=== PATIENT | male | born 1940 | race Caucasian/White ===

== ENCOUNTER → 2016-11-27 | Outpatient (REF) | payer MEDICARE ==
[2016-11-28 11:37] LABS: MEAN CORPUSCULAR HEMOGLOBIN 30.5 pg (27.0-33.0); MEAN CORPUSCULAR HGB CONC 33.3 g/dl (32.0-36.5); MEAN CORPUSCULAR VOLUME 91.5 fl (80.0-96.0); PLATELET COUNT, AUTOMATED 241 k/mm3 (150-450); RED CELL DISTRIBUTION WIDTH 12.7 % (11.5-14.5); WHITE BLOOD COUNT 8.8 K/mm3 (4.0-10.0)
[2016-11-28 12:38] LABS: ANION GAP 6 MEQ/L (8-16); BLOOD UREA NITROGEN 16 MG/DL (7-18); CARBON DIOXIDE LEVEL 29 MEQ/L (21-32); CHLORIDE LEVEL 104 MEQ/L (98-107); CREATININE FOR GFR 0.96 MG/DL (0.70-1.30); GLOMERULAR FILTRATION RATE > 60.0 (>42); GLUCOSE, FASTING 93 MG/DL (83-110); SODIUM LEVEL 139 MEQ/L (136-145)
[2016-11-28 12:48] LABS: POTASSIUM SERUM 5.8 MEQ/L (3.5-5.1)
[2016-11-28 13:37] LABS: BASOPHILS 2 % (0-4)
[2016-11-28 13:38] LABS: ANISOCYTOSIS 1+
== END ==
LOC: M SFHCCLAY 15:01
PROVIDERS: ATTEND Family Medicine
DX: Z86.2 Personal history of diseases of the blood and blood-forming organs and certain disorders involving the immune mechanism (principal); R73.01 Impaired fasting glucose; I10 Essential (primary) hypertension
CPT/HCPCS: 80048; 83036; 83540; 85025; G0463

== ENCOUNTER → 2017-05-30 | Outpatient (REF) | payer MEDICARE ==
[2017-05-31 12:10] LABS: ALBUMIN 3.8 GM/DL (3.2-5.2); ALBUMIN/GLOBULIN RATIO 1.12 (1.00-1.93); ALKALINE PHOSPHATASE 81 U/L (45-117); ALT/SGPT 29 U/L (12-78); ANION GAP 6 MEQ/L (8-16); AST/SGOT 19 U/L (15-37); BILIRUBIN,TOTAL 0.4 MG/DL (0.2-1.0); BLOOD UREA NITROGEN 12 MG/DL (7-18); CALCIUM LEVEL 8.9 MG/DL (8.8-10.2); CARBON DIOXIDE LEVEL 30 MEQ/L (21-32); CHLORIDE LEVEL 103 MEQ/L (98-107); CHOLESTEROL LEVEL 206 MG/DL (<200); CREATININE FOR GFR 0.95 MG/DL (0.70-1.30); GLOMERULAR FILTRATION RATE > 60.0 (>42); GLUCOSE, FASTING 116 MG/DL (83-110); POTASSIUM SERUM 4.2 MEQ/L (3.5-5.1); SODIUM LEVEL 139 MEQ/L (136-145); TOTAL PROTEIN 7.2 GM/DL (6.4-8.2); TRIGLYCERIDES LEVEL 120 MG/DL (<150)
== END ==
LOC: M SFHCCLAY 15:13
PROVIDERS: ATTEND Family Medicine
DX: I10 Essential (primary) hypertension (principal); E78.5 Hyperlipidemia, unspecified; R73.01 Impaired fasting glucose; E04.2 Nontoxic multinodular goiter
CPT/HCPCS: 80053; 80061; 83036; 84443; 90662; G0008; G0463

== ENCOUNTER → 2018-06-12 | Outpatient (REF) | payer MEDICARE ==
[2018-06-12 17:48] LABS: BASO # 0.1 10^3/uL (0.0-0.2); BASO % 0.7 % (0.0-1.0); EOS # 0.2 10^3/uL (0.0-0.50); EOS % 1.9 % (0.0-3.0); HEMATOCRIT 45.4 % (42.0-52.0); HEMOGLOBIN 15.1 g/dl (13.5-17.5); IMMATURE GRANULOCYTE % 0.2 % (0-3.0); LYMPH % 22.7 % (24.0-44.0); MEAN CORPUSCULAR HEMOGLOBIN 30.8 pg (27.0-33.0); MEAN CORPUSCULAR HGB CONC 33.3 g/dl (32.0-36.5); MEAN CORPUSCULAR VOLUME 92.5 fl (80.0-96.0); MONO # 0.5 10^3/uL (0.0-0.8); MONO % 6.1 % (0.0-5.0); NEUTROPHILS # 5.9 10^3/uL (1.8-7.7); NEUTROPHILS % 68.4 % (36.0-66.0); PLATELET COUNT, AUTOMATED 268 10^3/uL (150-450); RED BLOOD COUNT 4.91 10^6/uL (4.30-6.10); RED CELL DISTRIBUTION WIDTH 13.1 % (11.5-14.5); WHITE BLOOD COUNT 8.6 10^3/uL (4.0-10.0)
[2018-06-12 18:04] LABS: ALBUMIN 4.2 GM/DL (3.2-5.2); ALKALINE PHOSPHATASE 79 U/L (45-117); ALT/SGPT 29 U/L (12-78); ANION GAP 7 MEQ/L (8-16); AST/SGOT 18 U/L (7-37); BILIRUBIN,TOTAL 0.5 MG/DL (0.2-1.0); BLOOD UREA NITROGEN 17 MG/DL (7-18); CALCIUM LEVEL 9.2 MG/DL (8.8-10.2); CARBON DIOXIDE LEVEL 30 MEQ/L (21-32); CHLORIDE LEVEL 105 MEQ/L (98-107); CHOLESTEROL LEVEL 226 MG/DL (<200); CHOLESTEROL RISK RATIO 5.022 (<5); CREATININE FOR GFR 1.02 MG/DL (0.70-1.30); GLOMERULAR FILTRATION RATE > 60.0 (>42); GLUCOSE, FASTING 116 MG/DL (70-100); HDL CHOLESTEROL 45 MG/DL (>40); IRON (FE) 109 UG/DL (65-175); LDL CHOLESTEROL 149 MG/DL (<100); NON-HDL-C 181 MG/DL; POTASSIUM SERUM 4.9 MEQ/L (3.5-5.1); SODIUM LEVEL 142 MEQ/L (136-145); THYROID STIMULATING HORMONE 0.529 uIU/ML (0.358-3.740); TOTAL PROTEIN 7.2 GM/DL (6.4-8.2); TRIGLYCERIDES LEVEL 162 MG/DL (<150)
[2018-06-12 19:17] LABS: ESTIMATED AVERAGE GLUCOSE 137 MG/DL (60-110); HEMOGLOBIN A1c 6.4 %
== END ==
LOC: M SFHCCLAY 13:24
DX: E78.5 Hyperlipidemia, unspecified (principal); Z86.2 Personal history of diseases of the blood and blood-forming organs and certain disorders involving the immune mechanism; R73.01 Impaired fasting glucose; E04.2 Nontoxic multinodular goiter; Z23 Encounter for immunization
CPT/HCPCS: 83540

== ENCOUNTER → 2019-05-11 | Outpatient (REF) | payer MEDICARE ==
[2019-05-12 11:28] LABS: BASO # 0.1 10^3/uL (0.0-0.2); EOS # 0.2 10^3/uL (0.0-0.5); EOS % 2.2 % (0.0-3.0); LYMPH # 1.8 10^3/uL (1.5-5.0); LYMPH % 19.1 % (24.0-44.0); MEAN CORPUSCULAR HEMOGLOBIN 30.2 pg (27.0-33.0); MEAN CORPUSCULAR HGB CONC 33.3 g/dl (32.0-36.5); MEAN CORPUSCULAR VOLUME 90.7 fl (80.0-96.0); MONO # 0.7 10^3/uL (0.0-0.8); NEUTROPHILS # 6.7 10^3/uL (1.5-8.5); NEUTROPHILS % 70.4 % (36.0-66.0); PLATELET COUNT, AUTOMATED 238 10^3/uL (150-450); RED BLOOD COUNT 4.63 10^6/uL (4.30-6.10); WHITE BLOOD COUNT 9.5 10^3/uL (4.0-10.0)
[2019-05-12 11:38] LABS: ALBUMIN 3.8 GM/DL (3.2-5.2); ALT/SGPT 24 U/L (12-78); BILIRUBIN,TOTAL 0.4 MG/DL (0.2-1.0); BLOOD UREA NITROGEN 18 MG/DL (7-18); CALCIUM LEVEL 8.9 MG/DL (8.8-10.2); CARBON DIOXIDE LEVEL 28 MEQ/L (21-32); CHLORIDE LEVEL 104 MEQ/L (98-107); CHOLESTEROL LEVEL 210 MG/DL (<200); CHOLESTEROL RISK RATIO 4.883 (<5); CREATININE FOR GFR 1.03 MG/DL (0.70-1.30); GLOMERULAR FILTRATION RATE > 60.0 (>42); GLUCOSE, FASTING 102 MG/DL (70-100); HDL CHOLESTEROL 43 MG/DL (>40); IRON (FE) 80 UG/DL (65-175); LDL CHOLESTEROL 138 MG/DL (<100); NON-HDL-C 167 MG/DL; POTASSIUM SERUM 4.3 MEQ/L (3.5-5.1); SODIUM LEVEL 142 MEQ/L (136-145); THYROID STIMULATING HORMONE 0.472 uIU/ML (0.358-3.740); THYROXINE (T4) 11.9 UG/DL (4.5-12.0); TOTAL PROTEIN 6.5 GM/DL (6.4-8.2); TRIGLYCERIDES LEVEL 143 MG/DL (<150)
[2019-05-12 11:46] LABS: HEMOGLOBIN A1c 6.4 %
== END ==
LOC: M SFHCCLAY 14:27
PROVIDERS: ATTEND Family Medicine
DX: Z86.2 Personal history of diseases of the blood and blood-forming organs and certain disorders involving the immune mechanism (principal); I10 Essential (primary) hypertension; R73.01 Impaired fasting glucose; E78.5 Hyperlipidemia, unspecified; E04.2 Nontoxic multinodular goiter

== ENCOUNTER → 2020-05-10 | Outpatient (REF) | payer MEDICARE ==
[2020-05-10 13:18] LABS: HEMATOCRIT 45.4 % (42.0-52.0); HEMOGLOBIN 15.2 g/dl (13.5-17.5); MEAN CORPUSCULAR HEMOGLOBIN 30.8 pg (27.0-33.0); MEAN CORPUSCULAR HGB CONC 33.5 g/dl (32.0-36.5); MEAN CORPUSCULAR VOLUME 92.1 fl (80.0-96.0); PLATELET COUNT, AUTOMATED 243 10^3/uL (150-450); RED BLOOD COUNT 4.93 10^6/uL (4.30-6.10); WHITE BLOOD COUNT 10.9 10^3/uL (4.0-10.0)
[2020-05-10 13:49] LABS: HEMOGLOBIN A1c 6.5 %
[2020-05-10 13:53] LABS: ALBUMIN 3.7 GM/DL (3.2-5.2); ALT/SGPT 29 U/L (12-78); BILIRUBIN,TOTAL 0.5 MG/DL (0.2-1.0); BLOOD UREA NITROGEN 13 MG/DL (7-18); CALCIUM LEVEL 8.7 MG/DL (8.8-10.2); CARBON DIOXIDE LEVEL 29 MEQ/L (21-32); CHLORIDE LEVEL 107 MEQ/L (98-107); CHOLESTEROL LEVEL 201 MG/DL (<200); CHOLESTEROL RISK RATIO 4.369 (<5); CREATININE FOR GFR 0.84 MG/DL (0.70-1.30); FERRITIN 328 NG/ML (26-388); GLOMERULAR FILTRATION RATE > 60.0 (>42); GLUCOSE, FASTING 96 MG/DL (70-100); HDL CHOLESTEROL 46 MG/DL (>40); IRON (FE) 96 UG/DL (65-175); LDL CHOLESTEROL 136 MG/DL (<100); NON-HDL-C 155 MG/DL; PERCENT SATURATION 34.7 % (19.7-50.0); POTASSIUM SERUM 4.5 MEQ/L (3.5-5.1); SODIUM LEVEL 138 MEQ/L (136-145); THYROID STIMULATING HORMONE 0.566 uIU/ML (0.358-3.740); TOTAL IRON BINDING CAPACITY 277 UG/DL (250-450); TRIGLYCERIDES LEVEL 97 MG/DL (<150); VITAMIN B12 LEVEL 375 PG/ML (247-911)
[2020-05-10 13:55] LABS: FOLATE 11.7 NG/ML (>5.4)
== END ==
LOC: M LABDRAWC 11:48
PROVIDERS: ATTEND Family Medicine
DX: I10 Essential (primary) hypertension (principal); E78.5 Hyperlipidemia, unspecified; E04.2 Nontoxic multinodular goiter; R73.01 Impaired fasting glucose; Z86.2 Personal history of diseases of the blood and blood-forming organs and certain disorders involving the immune mechanism
CPT/HCPCS: 36415; 80053; 80061; 82607; 82728; 82746; 83036; 83550; 84443; 85027; G0463

== ENCOUNTER → 2020-06-16 | Outpatient (REF) | payer MEDICARE | LOC: M LAB REF 16:54 | PROVIDERS: ATTEND Physician Assistant | DX: C44.622 Squamous cell carcinoma of skin of right upper limb, including shoulder (principal); L82.1 Other seborrheic keratosis | CPT/HCPCS: 11102; 11103; 17000; 88305; G0463 ==

== ENCOUNTER 2020-08-17 17:32 | Inpatient (IN) | payer MEDICARE ==
[~2020-08-17] VITALS: Ht 172.7 cm; Wt 87.6 kg
[2020-08-17 20:50] VITALS: BP 140/73
[2020-08-17] MEDS: NORTRIPTYLINE 25 MG CAP PO SCH (21:00)
[2020-08-17] MEDS ORDERED: MAALOX 30 ML SUSP *UDC PO PRN (21:30)
[2020-08-17] MEDS ORDERED: MOM 30ML SUSPENSION UDC PO PRN (21:30)
[2020-08-17] MEDS ORDERED: LEXA5TAB13 PO (21:45)
[2020-08-17] MEDS ORDERED: ATEN25TA PO (21:45)
[2020-08-17] MEDS ORDERED: NEXI20CA PO (21:45)
[2020-08-17] MEDS ORDERED: FERR1TAB8 PO (21:45)
[2020-08-17] MEDS ORDERED: NORT25CA2 PO (21:45)
[2020-08-17] MEDS ORDERED: ELID1CRE11 TOP (21:45)
[2020-08-17] MEDS ORDERED: NITR4TASL SL (21:45)
[2020-08-17] MEDS ORDERED: SIMV40TA20 PO (21:45)
[2020-08-17] MEDS ORDERED: ACET-897 PO (21:45)
[2020-08-17] MEDS ORDERED: GABA600T4 PO (21:45)
[2020-08-17] MEDS ORDERED: AMLO1TAB25 PO (21:45)
[2020-08-17] MEDS ORDERED: ENSULIQ8 PO (21:45)
--- NOTE | 2020-08-17 21:58 | HPEPDOC ---
[facility] Medical History & Physical Date of Admission Aug 17, 2020 Date of Service: Aug 17, 2020 Attending Physician: TALIA HARRISON MD History and Physical TIME OF SERVICE: 11:16 PM CHIEF COMPLAINT: Dyspnea HISTORY OF PRESENT ILLNESS: This 79-year-old gentleman initially presented to [facility] 2 days ago with complaints of shortness of breath, fever, chills, muscle aches, runny nose and congestion; that visit, he was diagnosed with Covid 19 was not hypoxic, therefore, was sent home to [facility] point team. He returned to the ER with complaints of persistent shortness of breath that was worse with walking and fever high as 100.7. Because of high respiratory rate (24) and fever he was diagnosed with sepsis. His WBC count was 9.5, hemoglobin is 14.4, platelets were 161, lactic acid was 1.2, ferritin was 738. CT of the chest was negative for PE but confirmed the presence of ground glass opacities consistent with a diagnosis of Covid. His UA was positive for leukocyte esterase, WBCs, nitrites, and squamous cells;it was felt that he might have a UTI, therefore, he was started on Rocephin. Transfer to [facility] was requested for higher level of care; prior to transfer. Dr. Arellano was consulted; she didn't recommend remdisivir. At the time of my examination, the patient corroborated the history but added that he had developed nausea along with multiple episodes of vomiting. He denied having abdominal pain, back pain or pain with urination. REVIEW OF SYSTEMS: 12 point review of systems negative except as listed in HPI PAST MEDICAL/ SURGICAL HISTORY: Hypertension Hyperlipidemia HX of Stage IIIB Melanoma Insomnia/intrinsic sleep disorder/periodic limb movement disorder Bladder cancer GERD Anxiety Bilateral cataract surgery SOCIAL HISTORY: Former smoker He doesn't drink alcohol or use drugs FAMILY HISTORY: Mother had CKD ALLERGIES: Please see below. HOME MEDICATIONS: Please see below. PHYSICAL EXAMINATION: Vital Signs Date Time Temp Pulse Resp B/P (MAP) Pulse Ox O2 Delivery O2 Flow Rate FiO2 08/17/20 20:50 98.9 91 20 140/73 (95) 97 08/17/20 22:00 Room Air GEN: well-nourished / well developed/ NAD HEENT: lips acyanotic /mucus membranes moist and pink / sclera anicteric/ abdominojugular reflux CVS: RRR/NMRG/ no JVP / radial and dorsalis pedis pulses intact / no lower extremity edema LUNGS: able to speak full sentences without stopping to take a breath / coughing / lungs are clear to auscultation bilaterally on room air ABDOMEN: Contour (obese) MSK/EXTREMITIES: NCAT NEURO: CN 2-12 are grossly intact / speech is not dysarthric PSYCH: alert and oriented to person place and time/ able to understand and follow all commands LABORATORY DATA: 08/17/20 22:15 IMAGING: see HPI MICROBIOLOGY: COVID 19 + ASSESSMENT: Mr. Mcneil is a 79-year-old with a history of hypertension, remote history of melanoma, bladder cancer, anxiety, & GERD who was diagnosed with Covid 19 at [facility] a few days ago but subsequently developed SIRS criteria; he was transferred to [facility] for higher level of care. PLAN: 1. Sepsis 2/2 COVID 19 Pneumonia SIRS criteria: Temp 101.8 + HR > 90 Lactic acid < 2 CT chest showed bilateral ground glass opacities. The main symptoms, the patient has consistent with Covid include dyspnea, cough, fever, n/v His WBC, Plts,LFTs,CPK, LDH and troponins are wnl, but the Ferritin & CRP are elevated. Plan: admit to PCU / telemetry / contact & air borne precautions /continuous pulse ox/ supplemental O2 to target O2 sats between 92-95% / follow-up blood cultures/ in 12 H f/u repeat plts (if low indicates bad prognosis), CRP (if high indicates bad prognosis), INR, BMP, fibrinogen, INR, D-dimer (if greater than 5000 will start treatment dose lovenox), PT, PTT (if patient has DIC indicates bad prognosis), ferritin, LDH, procalcitonin (if elevated will need to order sputum cx, strep pneumo, legionella to r/o bacterial PNA to help rule out bacterial PNA), troponins ( if elevated will need to order Echo to r/o cardiomyopathy) / VBG to assess for hypoxia / if he becomes hypoxemic the day time team may consult Pulmonology to discuss if the patient is a candidate for Remdesivir / will hold off IV dexamethasone or solumedrol because the patient is not hypoxemic / Acetaminophen PRN for fever 2. Asymptomatic UTI. Plan: will hold off antibiotics 3. Chronic Hypertension Plan: Amlodipine, atenolol 4. Hyperlipidemia. Plan: Simvastatin 5. HX of Stage IIIB Melanoma & Bladder cancer. Plan: Follow-up with hematology oncology team as scheduled Insomnia/intrinsic sleep disorder/periodic limb movement disorder 6. GERD Plan: Esomeprazole 7. Anxiety Plan: Citalopram DVT PROPHYLAXIS: Lovenox DISPOSITION: home after more than 2 midnight's stay Home Medications Scheduled Amlodipine Besylate (Amlodipine Besylate) 10 Mg Tablet, 10 MG PO DAILY Atenolol (Atenolol) 25 Mg Tablet, 25 MG PO DAILY Escitalopram Oxalate (Lexapro) 5 Mg Tablet, 5 MG PO DAILY Esomeprazole Magnesium (Nexium) 20 Mg Capsule.dr, 20 MG PO DAILY Ferrous Sulfate (Ferrous Sulfate) 325 Mg Tablet, 325 MG PO DAILY Gabapentin (Gabapentin) 600 Mg Tablet, 600 MG PO BID Lactose-Reduced Food (Ensure Liquid) 237 Ml Liquid, 237 ML PO DAILY CONSUMES BETWEEN LUNCH AND DINNER Nortriptyline HCl (Nortriptyline HCl) 25 Mg Capsule, 25 MG PO QHS Simvastatin (Simvastatin) 40 Mg Tablet, 40 MG PO QHS Scheduled PRN Acetaminophen (Tylenol Extra Strength) 500 Mg Tablet, 1,000 MG PO Q6H PRN for PAIN / FEVER Nitroglycerin (Nitrostat) 0.4 Mg Tab.subl, 0.4 MG SL NITRO PRN for CHEST PAIN Pimecrolimus (Elidel) 30 Gm Cream..g., 1 DOSE TOP DAILY PRN for ECZEMA APPLY TO FACE NEEDED Allergies Coded Allergies: No Known Allergies (Unverified , 08/17/20) A-FIB/CHADSVASC A-FIB History Current/History of A-Fib/PAF?: No Current PO Anticoag Therapy: TALIA Flynn MD Aug 17, 2020 21:58
[2020-08-17 22:00] VITALS: O2SAT 95
[2020-08-17 22:33] LABS: BASO % 0.2 % (0.0-1.0); HEMATOCRIT 41.4 % (42.0-52.0); HEMOGLOBIN 13.7 g/dl (13.5-17.5); LYMPH # 0.7 10^3/uL (1.5-5.0); LYMPH % 6.9 % (24.0-44.0); MEAN CORPUSCULAR HEMOGLOBIN 29.7 pg (27.0-33.0); MEAN CORPUSCULAR HGB CONC 33.1 g/dl (32.0-36.5); MEAN CORPUSCULAR VOLUME 89.6 fl (80.0-96.0); MONO # 0.6 10^3/uL (0.0-0.8); MONO % 6.4 % (0.0-5.0); NEUTROPHILS # 8.4 10^3/uL (1.5-8.5); NEUTROPHILS % 86.1 % (36.0-66.0); PLATELET COUNT, AUTOMATED 147 10^3/uL (150-450); RED BLOOD COUNT 4.62 10^6/uL (4.30-6.10); WHITE BLOOD COUNT 9.8 10^3/uL (4.0-10.0)
[2020-08-17 22:46] LABS: INR 0.97; PROTHROMBIN TIME 13.1 SECONDS (12.5-14.3)
[2020-08-17 22:52] LABS: PARTIAL THROMBOPLASTIN TIME 34.9 SECONDS (24.2-38.5)
[2020-08-17 22:55] LABS: D-DIMER QUANT 1087.76 ng/ml (<500)
[2020-08-17 22:57] LABS: ALBUMIN 3.5 GM/DL (3.2-5.2); ALT/SGPT 35 U/L (12-78); BILIRUBIN,DIRECT 0.2 MG/DL (0.0-0.2); BILIRUBIN,TOTAL 0.5 MG/DL (0.2-1.0); BLOOD UREA NITROGEN 12 MG/DL (7-18); C REACTIVE PROTEIN QUANTITATIV 9.86 MG/DL (0.00-0.30); CALCIUM LEVEL 8.5 MG/DL (8.8-10.2); CARBON DIOXIDE LEVEL 26 MEQ/L (21-32); CHLORIDE LEVEL 104 MEQ/L (98-107); CK-MB VALUE MASS 1.5 NG/ML (<3.6); CPK CREATINE PHOSPHOKINASE 159 U/L (39-308); CREATININE FOR GFR 0.96 MG/DL (0.70-1.30); FERRITIN 848 NG/ML (26-388); GLOMERULAR FILTRATION RATE > 60.0 (>42); GLUCOSE, FASTING 114 MG/DL (70-100); LDH LACTATE DEHYDROGENASE 199 U/L (87-241); MB/CK RELATIVE INDEX 0.94 (< OR =4); NT-PRO BNP 454 PG/ML (<450); POTASSIUM SERUM 3.5 MEQ/L (3.5-5.1); SODIUM LEVEL 135 MEQ/L (136-145); TOTAL PROTEIN 6.8 GM/DL (6.4-8.2); TRIGLYCERIDES LEVEL 53 MG/DL (<150); TROPONIN I < 0.02 NG/ML (< 0.10)
[2020-08-17] MEDS ORDERED: NITROGLYCERIN 0.4 MG SUBL TABLET SL PRN (23:00)
[2020-08-17] MEDS: SIMVASTATIN 40 MG TAB PO SCH (23:15)
[2020-08-17] MEDS: ONDANSETRON 4MG/2ML VIAL IV PRN (23:15)
[2020-08-17] MEDS: GABAPENTIN 300 MG CAP PO SCH (23:15)
[2020-08-17 23:17] LABS: HEPATITIS B SURFACE ANTIGEN NEGATIVE (NEGATIVE)
[2020-08-17 23:45] LABS: HIV 1&2 SCREEN CENTAUR NEGATIVE (NEGATIVE)
[2020-08-18] VITALS (8 sets, daily range): BP systolic 134–167; BP diastolic 59–79; O2SAT 93–94
[2020-08-18] MEDS: ACETAMINOPHEN TAB 650MG DOSE (2X325MG) PO PRN ×2 (00:42→10:59)
[2020-08-18] MEDS ORDERED: ENOXAPARIN 40MG/0.4ML SYRINGE (J1650 PER 10MG) SC SCH (06:00)
[2020-08-18 06:30] LABS: BASO % 0.1 % (0.0-1.0); HEMATOCRIT 41.9 % (42.0-52.0); HEMOGLOBIN 14.2 g/dl (13.5-17.5); LYMPH # 0.7 10^3/uL (1.5-5.0); LYMPH % 5.9 % (24.0-44.0); MEAN CORPUSCULAR HGB CONC 33.9 g/dl (32.0-36.5); MEAN CORPUSCULAR VOLUME 91.5 fl (80.0-96.0); MONO # 0.7 10^3/uL (0.0-0.8); NEUTROPHILS # 10.6 10^3/uL (1.5-8.5); NEUTROPHILS % 87.6 % (36.0-66.0); PLATELET COUNT, AUTOMATED 151 10^3/uL (150-450); RED BLOOD COUNT 4.58 10^6/uL (4.30-6.10); WHITE BLOOD COUNT 12.1 10^3/uL (4.0-10.0)
[2020-08-18 06:34] LABS: APPEARANCE, URINE HAZY (CLEAR); BACTERIA, URINE AUTO NEGATIVE (NEGATIVE); BILIRUBIN, URINE AUTO NEGATIVE (NEGATIVE); BLOOD, URINE BLOOD 2+ (NEGATIVE); COLOR, URINE YELLOW (YELLOW); GLUCOSE, URINE (UA) AUTO 1+ mg/dL (NEGATIVE); KETONE, URINE AUTO 1+ mg/dL (NEGATIVE); LEUKOCYTE ESTERASE, URINE AUTO 2+ (NEGATIVE); NITRITE, URINE AUTO NEGATIVE (NEGATIVE); PROTEIN, URINE AUTO 2+ mg/dL (NEGATIVE); RBC, URINE AUTO 6 /HPF (0-3); SPECIFIC GRAVITY URINE AUTO 1.019 (1.002-1.035); SQUAMOUS EPITHELIAL CELL UR AU 0 /HPF (0-6); UROBILINOGEN, URINE AUTO 0.2 mg/dL (0.0-2.0); WBC, URINE AUTO 93 /HPF (0-3)
[2020-08-18 06:41] LABS: INR 1.08; PROTHROMBIN TIME 14.2 SECONDS (12.5-14.3)
[2020-08-18 06:42] LABS: PARTIAL THROMBOPLASTIN TIME 37.7 SECONDS (24.2-38.5)
[2020-08-18 06:44] LABS: D-DIMER QUANT 1144.71 ng/ml (<500)
[2020-08-18 07:05] LABS: C REACTIVE PROTEIN QUANTITATIV 14.2 MG/DL (0.00-0.30); TROPONIN I 0.02 NG/ML (< 0.10)
--- NOTE | 2020-08-18 07:21 | ECGEPIP ---
[facility] Test Date: 2020-08-17 Pat Name: SYLVIE CROWDER Department: Room: E1743-70 Gender: Male Level[place]: : 1940 Requested By: TALIA HARRISON Order Number: [id number] Reading MD: Sascha Arthur Measurements Intervals [place] Rate: 97 P: 52 KS: 191 QRS: 0 QRSD: 92 T: 80 QT: 343 QTc: 436 Interpretive Statements Normal sinus rhythm with isolated PAC Prominent right precordial R waves with minuscule inferior Q waves; consider RIGHT VENTRICULAR HYPERTROPHY versus prior inferoposterior MS. Nonspecific ST/T wave abnormalities. No prior tracing for comparison. Clincal correlation advised Electronically Signed on 08-18-2020 7:21:09 EST by Sascha Arthur
[2020-08-18] MEDS: GABAPENTIN 300 MG CAP PO SCH ×2 (08:50→21:33)
[2020-08-18] MEDS: FERROUS SULFATE 325MG TAB PO SCH (08:50)
[2020-08-18] MEDS: PANTOPRAZOLE 20 MG TAB PO SCH (08:50)
[2020-08-18] MEDS: amLODIPine 10 MG TAB PO SCH (08:51)
[2020-08-18] MEDS: atenoloL 25 MG TAB PO SCH (08:51)
[2020-08-18] MEDS: ESCITALOPRAM OXALATE 5MG TABLET (LEXAPRO) PO SCH (08:51)
[2020-08-18] MEDS: ONDANSETRON 4MG/2ML VIAL IV PRN (10:59)
--- NOTE | 2020-08-18 16:16 | IPNPDOC ---
Text Note Date of Service The patient was seen on 08/18/20. NOTE Subjective: Patient was seen and examined this morning at bedside. Patient was sitting up in bed says he feels weak overall but the same as when he came in. He doesn't feel very short of breath at rest however he does get a little short of breath on exertion currently he just has some muscle aches and nasal congestion and intermittent fever. He's been breathing on room air not requiring supplemental oxygen. Nurse reports no overnight events. Urinalysis suggests a UTI but patient denies any dysuria or urinary frequency. Objective: Constitutional: Awake and alert, in no apparent distress ENT: Sclera are clear. Mucosa is moist. Respiratory: Lungs CTA bilaterally. No respiratory distress. No use of accessory muscles. Cardiovascular: RRR S1 and S2 are normal, no murmur Gastrointestinal: Abdomen is soft, non distended, non tender, BS present. Musculoskeletal: No edema. No joint deformities. RUE 5/5, LUE 5/5, BLE 5/5 Neurologic: No focal neurological deficit. Mental Status: A&O x3, normal affect Skin: Warm, dry Assessment/plan: 79-year-old male history of hypertension recently diagnosed with Covid 2 days ago and [facility] transferred due to increased shortness of breath with exertion as well as meeting SIRS criteria. Transferred to [facility] for higher level of care. Patient was admitted for management of Covid infection. # Sepsis secondary to Covid 19 pneumonia: Elevated calcitonin. Abx ceftriaxone and azithromycin. Fu BCx. Elevated inflammatory markers. Trend markers. No supplemental oxygen needed at this time. Started on IV steroids as inflammatory markers did uptrend, may not continue for long. Overnight case was discussed with Dr. Lawson who suggested holding off on Ramdasivir. PT/OT. # UTI; seen on urinalysis although patient is asymptomatic. Likely covered by ceftriaxone which she is on for pneumonia. # Hypertension: Continue home meds. Monitor and titrate # HX of Stage IIIB Melanoma & Bladder cancer: Follow-up with hematology oncology team as scheduled # Anxiety: citalopram # HLD: simvastatin # GERD: PPI # DVT prophylaxis: Lovenox Covid prophylactic dose [facility] VS,Fishbone, I+O VS, Fishbone, I+O Laboratory Tests 08/17/20 22:15 08/18/20 05:58 Vital Signs Date Time Temp Pulse Resp B/P (MAP) Pulse Ox O2 Delivery O2 Flow Rate FiO2 08/18/20 12:00 98.4 69 19 134/59 (84) 93 Room Air I&O- Last 24 Hours up to 6 AM 08/18/20 06:00 Intake Total 600 ml Balance 600 ml ALLY LOREDO MD Aug 18, 2020 16:16
[2020-08-18] MEDS: AZITHROMYCIN INJ 500 MG, VIAL MATE ADAPTER 1 EACH in D5W 250 ML IV SCH (16:35)
[2020-08-18] MEDS: methylPREDNISolone 40MG 1ML VIAL IV SCH (16:35)
--- NOTE | 2020-08-18 16:48 | REP ---
INDICATION: elevated procalcitonin, COVID. COMPARISON: No comparison chest x-ray.. TECHNIQUE: Portable upright AP radiograph. FINDINGS: Monitoring electrodes are seen. There are multiple surgical clips in the right axillary soft tissues. Heart size is borderline. Pulmonary vasculature is somewhat cephalized. There is pleural thickening and slight blunting of the right lateral pleural angle. There are patchy bilateral infiltrates left base, left perihilar region, and right mid lung field. The aorta is somewhat tortuous. There are degenerative changes in the thoracic spine. IMPRESSION: Patchy bilateral interstitial infiltrates consistent with pneumonia. Some vascular congestion. Borderline heart size. <Electronically signed by Lewis Sims > 08/18/20 [id number]
[2020-08-18] MEDS: cefTRIAXone SOD 1 GM in D5W MINI-BAG PLUS 50 ML IV SCH (17:36)
[2020-08-18] MEDS: ENOXAPARIN 40MG/0.4ML SYRINGE (J1650 PER 10MG) SC SCH (17:36)
[2020-08-18] MEDS: SIMVASTATIN 40 MG TAB PO SCH (21:32)
[2020-08-18] MEDS: NORTRIPTYLINE 25 MG CAP PO SCH (21:33)
[2020-08-19] VITALS: O2SAT 94
[2020-08-19] MEDS: methylPREDNISolone 40MG 1ML VIAL IV SCH ×3 (01:41→17:39)
[2020-08-19 04:00] VITALS: BP 139/70
[2020-08-19 06:04] VITALS: O2SAT 92
[2020-08-19] MEDS: ENOXAPARIN 40MG/0.4ML SYRINGE (J1650 PER 10MG) SC SCH ×2 (06:06→18:58)
[2020-08-19 08:31] LABS: BASO % 0.1 % (0.0-1.0); HEMOGLOBIN 14.1 g/dl (13.5-17.5); LYMPH # 0.5 10^3/uL (1.5-5.0); LYMPH % 3.2 % (24.0-44.0); MEAN CORPUSCULAR HEMOGLOBIN 30.2 pg (27.0-33.0); MEAN CORPUSCULAR HGB CONC 33.6 g/dl (32.0-36.5); MEAN CORPUSCULAR VOLUME 89.9 fl (80.0-96.0); MONO # 0.4 10^3/uL (0.0-0.8); MONO % 2.4 % (0.0-5.0); NEUTROPHILS # 13.6 10^3/uL (1.5-8.5); NEUTROPHILS % 93.7 % (36.0-66.0); PLATELET COUNT, AUTOMATED 155 10^3/uL (150-450); RED BLOOD COUNT 4.67 10^6/uL (4.30-6.10); WHITE BLOOD COUNT 14.5 10^3/uL (4.0-10.0)
[2020-08-19 08:46] LABS: INR 1.01; PROTHROMBIN TIME 13.5 SECONDS (12.5-14.3)
[2020-08-19 08:47] LABS: PARTIAL THROMBOPLASTIN TIME 40.3 SECONDS (24.2-38.5)
[2020-08-19 08:49] LABS: D-DIMER QUANT 848.51 ng/ml (<500)
[2020-08-19 09:00] LABS: ALBUMIN 3.1 GM/DL (3.2-5.2); ALT/SGPT 34 U/L (12-78); BILIRUBIN,DIRECT 0.2 MG/DL (0.0-0.2); BILIRUBIN,TOTAL 0.5 MG/DL (0.2-1.0); BLOOD UREA NITROGEN 18 MG/DL (7-18); CALCIUM LEVEL 8.1 MG/DL (8.8-10.2); CARBON DIOXIDE LEVEL 27 MEQ/L (21-32); CHLORIDE LEVEL 100 MEQ/L (98-107); CREATININE FOR GFR 0.92 MG/DL (0.70-1.30); FERRITIN 1292 NG/ML (26-388); GLOMERULAR FILTRATION RATE > 60.0 (>42); GLUCOSE, FASTING 185 MG/DL (70-100); MAGNESIUM LEVEL 2.4 MG/DL (1.8-2.4); POTASSIUM SERUM 3.8 MEQ/L (3.5-5.1); SODIUM LEVEL 135 MEQ/L (136-145); TOTAL PROTEIN 6.4 GM/DL (6.4-8.2)
[2020-08-19] MEDS: FERROUS SULFATE 325MG TAB PO SCH (09:06)
[2020-08-19] MEDS: PANTOPRAZOLE 20 MG TAB PO SCH (09:06)
[2020-08-19] MEDS: GABAPENTIN 300 MG CAP PO SCH ×2 (09:06→20:05)
[2020-08-19] MEDS: ESCITALOPRAM OXALATE 5MG TABLET (LEXAPRO) PO SCH (09:06)
[2020-08-19] MEDS: atenoloL 25 MG TAB PO SCH (09:07)
[2020-08-19] MEDS: amLODIPine 10 MG TAB PO SCH (09:08)
[2020-08-19 12:00] VITALS: BP 121/66
--- NOTE | 2020-08-19 14:51 | IPNPDOC ---
Text Note Date of Service The patient was seen on 08/19/20. NOTE Subjective: Patient seen and examined this morning at bedside. Tells me his feeling much better now. He estimates improvement to be about 60% compared to when he came in. Says his shortness of breath improved significantly and he is no longer feels as short of breath. He ambulated today with physical therapy and did not require oxygen he always saturated over 93% at all times. Nurse reports to me no acute overnight events. Patient denies any chest pain fevers or chills. Objective: Constitutional: Awake and alert, in no apparent distress ENT: Sclera are clear. Mucosa is moist. Respiratory: Lungs CTA bilaterally. No respiratory distress. No use of accessory muscles. on room air. Cardiovascular: RRR S1 and S2 are normal, no murmur Gastrointestinal: Abdomen is soft, non distended, non tender, BS present. Musculoskeletal: No edema. No joint deformities. RUE 5/5, LUE 5/5, BLE 5/5 Neurologic: No focal neurological deficit. Mental Status: A&O x3, normal affect Skin: Warm, dry Assessment/plan: 79-year-old male history of hypertension recently diagnosed with Covid 2 days ago and [facility] transferred due to increased shortness of breath with exertion as well as meeting SIRS criteria. Transferred to [facility] for higher level of care. Patient was admitted for management of Covid infection. I anticipate patient will be discharged tomorrow # Sepsis secondary to Covid 19 pneumonia: Abx ceftriaxone and azithromycin will transitioned to levofloxacin for 5 more days at time of discharge. BCx negative to date. Elevated inflammatory markers. Trend markers show decreasing D-dimer. No supplemental oxygen needed at this time even on ambulation was physical therapy maintain saturation over 92%. IV steroids and then transitioned to 5 days of prednisone oral time of discharge. Discussed with Dr. Lawson overnight team who suggested holding off on Ramdasivir. PT/OT cleared patient for discharge. # UTI: seen on urinalysis although patient is asymptomatic. Likely covered by ceftriaxone which he is on for pneumonia. He will also be discharged on levoflo xacin for 5 days for the PNA. UCx hasn't been collected and likely unreliable now as patient already on ABx. # Hypertension: Continue home meds. Monitor and titrate # HX of Stage IIIB Melanoma & Bladder cancer: Follow-up with hematology oncology team as scheduled # Anxiety: citalopram # HLD: simvastatin # GERD: PPI # DVT prophylaxis: Lovenox Covid prophylactic dose [facility] Tisha CHRISTIANSEN, I+O Tisha CHRISTIANSEN I+O Laboratory Tests 08/19/20 07:38 Vital Signs Date Time Temp Pulse Resp B/P (MAP) Pulse Ox O2 Delivery O2 Flow Rate FiO2 08/19/20 12:00 98.6 54 16 121/66 (84) 97 Room Air I&O- Last 24 Hours up to 6 AM 08/19/20 06:00 Intake Total 1140 ml Output Total 1450 ml Balance -310 ml ALLY LOREDO MD Aug 19, 2020 14:51
[2020-08-19] MEDS: AZITHROMYCIN INJ 500 MG, VIAL MATE ADAPTER 1 EACH in D5W 250 ML IV SCH (17:39)
[2020-08-19] MEDS: cefTRIAXone SOD 1 GM in D5W MINI-BAG PLUS 50 ML IV SCH (18:58)
[2020-08-19 20:00] VITALS: BP 144/67
[2020-08-19] MEDS: NORTRIPTYLINE 25 MG CAP PO SCH (20:05)
[2020-08-19] MEDS: SIMVASTATIN 40 MG TAB PO SCH (20:06)
[2020-08-20] MEDS: methylPREDNISolone 40MG 1ML VIAL IV SCH ×2 (00:59→09:21)
[2020-08-20 04:00] VITALS: BP 125/69
[2020-08-20] MEDS: ENOXAPARIN 40MG/0.4ML SYRINGE (J1650 PER 10MG) SC SCH (05:40)
[2020-08-20 07:34] LABS: BASO % 0.1 % (0.0-1.0); HEMOGLOBIN 14.2 g/dl (13.5-17.5); LYMPH # 0.6 10^3/uL (1.5-5.0); LYMPH % 3.5 % (24.0-44.0); MEAN CORPUSCULAR HEMOGLOBIN 30.4 pg (27.0-33.0); MEAN CORPUSCULAR HGB CONC 33.8 g/dl (32.0-36.5); MEAN CORPUSCULAR VOLUME 89.9 fl (80.0-96.0); MONO # 0.6 10^3/uL (0.0-0.8); NEUTROPHILS # 14.6 10^3/uL (1.5-8.5); NEUTROPHILS % 91.8 % (36.0-66.0); PLATELET COUNT, AUTOMATED 203 10^3/uL (150-450); RED BLOOD COUNT 4.67 10^6/uL (4.30-6.10); WHITE BLOOD COUNT 15.9 10^3/uL (4.0-10.0)
[2020-08-20 07:46] LABS: INR 0.91; PROTHROMBIN TIME 12.4 SECONDS (12.5-14.3)
[2020-08-20 07:47] LABS: PARTIAL THROMBOPLASTIN TIME 34.2 SECONDS (24.2-38.5)
[2020-08-20 07:49] LABS: D-DIMER QUANT 713.56 ng/ml (<500)
[2020-08-20 08:05] LABS: ALT/SGPT 42 U/L (12-78); BILIRUBIN,DIRECT 0.2 MG/DL (0.0-0.2); BILIRUBIN,TOTAL 0.4 MG/DL (0.2-1.0); BLOOD UREA NITROGEN 23 MG/DL (7-18); C REACTIVE PROTEIN QUANTITATIV 6.16 MG/DL (0.00-0.30); CALCIUM LEVEL 8.2 MG/DL (8.8-10.2); CARBON DIOXIDE LEVEL 28 MEQ/L (21-32); CHLORIDE LEVEL 99 MEQ/L (98-107); CREATININE FOR GFR 0.94 MG/DL (0.70-1.30); FERRITIN 1320 NG/ML (26-388); GLOMERULAR FILTRATION RATE > 60.0 (>42); GLUCOSE, FASTING 174 MG/DL (70-100); MAGNESIUM LEVEL 2.4 MG/DL (1.8-2.4); POTASSIUM SERUM 3.6 MEQ/L (3.5-5.1); SODIUM LEVEL 134 MEQ/L (136-145); TOTAL PROTEIN 6.5 GM/DL (6.4-8.2)
[2020-08-20] MEDS: ESCITALOPRAM OXALATE 5MG TABLET (LEXAPRO) PO SCH (09:20)
[2020-08-20 09:21] VITALS: BP 125/69
[2020-08-20] MEDS: amLODIPine 10 MG TAB PO SCH (09:21)
[2020-08-20] MEDS: PANTOPRAZOLE 20 MG TAB PO SCH (09:21)
[2020-08-20] MEDS: GABAPENTIN 300 MG CAP PO SCH (09:21)
[2020-08-20] MEDS: FERROUS SULFATE 325MG TAB PO SCH (09:21)
[2020-08-20] MEDS: atenoloL 25 MG TAB PO SCH (09:21)
[2020-08-20] MEDS ORDERED: PRED50TA PO (10:52)
[2020-08-20] MEDS ORDERED: VENTAER INH (10:52)
[2020-08-20] MEDS ORDERED: ACET-897 PO (10:52)
[2020-08-20] MEDS ORDERED: LEVO750T13 PO (10:52)
--- NOTE | 2020-08-20 11:02 | DS.PDOC ---
Discharge Summary General Date of Admission Aug 17, 2020 at 20:35 Date of Discharge 08/20/2020 Discharge Summary PROCEDURES PERFORMED DURING STAY: [None]. ADMITTING DIAGNOSES: Covid 19 infection Urinary tract infection Sepsis DISCHARGE DIAGNOSES: Sepsis secondary to Covid 19 pneumonia Urinary tract infection COMPLICATIONS/CHIEF COMPLAINT: Uti,Sepsis, +Covid. HISTORY OF PRESENT ILLNESS: From H&P: This 79-year-old gentleman initially presented to [facility] 2 days ago with complaints of shortness of breath, fever, chills, muscle aches, runny nose and congestion; that visit, he was diagnosed with Covid 19 was not hypoxic, therefore, was sent home to [facility] point team. He returned to the ER with complaints of persistent shortness of breath that was worse with walking and fever high as 100.7. Because of high respiratory rate (24) and fever he was diagnosed with sepsis. His WBC count was 9.5, hemoglobin is 14.4, platelets were 161, lactic acid was 1.2, ferritin was 738. CT of the chest was negative for PE but confirmed the presence of ground glass opacities consistent with a diagnosis of Covid. His UA was positive for leukocyte esterase, WBCs, nitrites, and squamous cells;it was felt that he might have a UTI, therefore, he was started on Rocephin. Transfer to [facility] was requested for higher level of care; prior to transfer. Dr. Arellano was consulted; she didn't recommend remdisivir. At the time of my examination, the patient corroborated the history but added that he had developed nausea along with multiple episodes of vomiting. He denied having abdominal pain, back pain or pain with urination. HOSPITAL COURSE: 79-year-old male history of hypertension recently diagnosed with Covid 2 days ago and [facility] transferred due to increased shortness of breath with exertion as well as meeting SIRS criteria. Transferred to [facility] for higher level of care. Patient was admitted for management of Covid infection. In the time of discharge patient was feeling well tell me his shortness of breath has essentially resolved and he hasn't required any oxygen when walking around his room feeling well. Is eager to go home. Denies any sputum production fevers or chills. He estimates he feels 90% better compared to when he came to the hospital. Yesterday he told me use feeling 60% better. Patient was discharged to home with home health on 08/20/2020. Patient will be prescribed 5 more days of prednisone orally as well as 5 more days of levofloxacin. I asked the patient to follow-up with his primary care doctor ideally through telemedicine within the next 7 days. # Sepsis secondary to Covid 19 pneumonia: Abx IV ceftriaxone and azithromycin will transitioned to levofloxacin for 5 more days at time of discharge. BCx negative to date. Elevated inflammatory markers. Trend markers show decreasing D-dimer. No supplemental oxygen needed at this time even on ambulation was p hysical therapy maintain saturation over 92%. IV steroids and then transitioned to 5 days of prednisone oral time of discharge. Discussed with Dr. Arellano overnight team who suggested holding off on Ramdasivir. PT/OT cleared patient for discharge. # UTI: seen on urinalysis although patient is asymptomatic. Likely covered by ceftriaxone which he is on for pneumonia. He will also be discharged on levof loxacin for 5 days for the PNA. UCx hasn't been collected and likely unreliable now as patient already on ABx. In the time of discharge the patient denies any dysuria # Hypertension: Continue home meds. Monitor and titrate # HX of Stage IIIB Melanoma & Bladder cancer: Follow-up with hematology oncology team as scheduled DISCHARGE MEDICATIONS: Please see below. ALLERGIES: Please see below. PHYSICAL EXAMINATION ON DISCHARGE: VITAL SIGNS: Please see below. Constitutional: Awake and alert, in no apparent distress ENT: Sclera are clear. Mucosa is moist. Respiratory: Lungs CTA bilaterally. No respiratory distress. No use of accessory muscles. on room air. Cardiovascular: RRR S1 and S2 are normal, no murmur Gastrointestinal: Abdomen is soft, non distended, non tender, BS present. Musculoskeletal: No edema. No joint deformities. RUE 5/5, LUE 5/5, BLE 5/5 Neurologic: No focal neurological deficit. Mental Status: A&O x3, normal affect Skin: Warm, dry LABORATORY DATA: Please see below. IMAGING: CXR Patchy bilateral interstitial infiltrates consistent with pneumonia. Some vascular congestion. Borderline heart size. PROGNOSIS: fair ACTIVITY: [As tolerated]. DIET: regular DISPOSITION: Home with home health DISCHARGE INSTRUCTIONS: Please follow up with your primary care physician within 1 week from discharge. If you do not have one, please follow up with us to schedule an appointment. Please keep all of your follow up appointments. Please call central to book your appointments with hospital specialists. Please take all your medications as prescribed. Please call/come to Clinic or go to the Emergency Department if - Temp >101, intractable Nausea/Vomiting, Diarrhea, Mouth sores, Headaches, Altered mental status, Seizures, sudden onset of swelling, bleeding, shortness of breath or chest pain. ITEMS TO FOLLOWUP ON ON OUTPATIENT: Follow-up with your primary care doctor within 1 week of discharge Follow quarantine guidelines as discussed per CDC guidelines DISCHARGE CONDITION: [Stable]. TIME SPENT ON DISCHARGE: Greater than 35 minutes. Vital Signs/I&Os Vital Signs Date Time Temp Pulse Resp B/P (MAP) Pulse Ox O2 Delivery O2 Flow Rate FiO2 08/20/20 09:21 75 125/69 08/20/20 06:00 93 Nasal Cannula 1.0 08/20/20 04:00 98.6 20 I&O- Last 24 Hours up to 6 AM 08/20/20 06:00 Intake Total 1260 ml Output Total 2100 ml Balance -840 ml Laboratory Data Labs 24H Laboratory Tests 2 08/20/20 04:40: 08/20/20 06:48: Immature Granulocyte % (Auto) 0.6, Neutrophils (%) (Auto) 91.8H, Lymphocytes (%) (Auto) 3.5L, Monocytes (%) (Auto) 4.0, Eosinophils (%) (Auto) 0.0, Basophils (%) (Auto) 0.1, Neutrophils # (Auto) 14.6H, Lymphocytes # (Auto) 0.6L, Monocytes # (Auto) 0.6, Eosinophils # (Auto) 0.0, Basophils # (Auto) 0.0, Nucleated Red Blood Cells % (auto) 0.0, Prothrombin Time 12.4, Prothromb Time International Ratio 0.91, Activated Partial Thromboplast Time 34.2, Fibrinogen 586H, D-Dimer, Quantitative 713.56H, Anion Gap 7L, Glomerular Filtration Rate > 60.0, Calcium Level 8.2L, Magnesium Level 2.4, Ferritin 1320H, Total Bilirubin 0.4, Direct Bilirubin 0.2, Aspartate Amino Transf (AST/SGOT) 38H, Alanine Aminotransferase (ALT/SGPT) 42, Alkaline Phosphatase 68, C-Reactive Protein, Quantitative 6.16H, Total Protein 6.5, Albumin 3.0L, Albumin/Globulin Ratio 0.9 CBC/BMP Laboratory Tests 08/20/20 06:48 Microbiology Microbiology 08/20/20 Urine Culture, Received Pending 08/18/20 Blood Culture - Preliminary, Resulted No growth after 24 hours . All specim... 08/18/20 Blood Culture - Preliminary, Resulted No growth after 24 hours . All specim... 08/17/20 Blood Culture - Preliminary, Resulted No Growth after 48 hours. All Specime... Discharge Medications Scheduled Amlodipine Besylate (Amlodipine Besylate) 10 Mg Tablet, 10 MG PO DAILY, (Reported) Atenolol (Atenolol) 25 Mg Tablet, 25 MG PO DAILY, (Reported) Escitalopram Oxalate (Lexapro) 5 Mg Tablet, 5 MG PO DAILY, (Reported) Esomeprazole Magnesium (Nexium) 20 Mg Capsule.dr, 20 MG PO DAILY, (Reported) Ferrous Sulfate (Ferrous Sulfate) 325 Mg Tablet, 325 MG PO DAILY, (Reported) Gabapentin (Gabapentin) 600 Mg Tablet, 600 MG PO BID, (Reported) Lactose-Reduced Food (Ensure Liquid) 237 Ml Liquid, 237 ML PO DAILY, (Reported) CONSUMES BETWEEN LUNCH AND DINNER Levofloxacin (Levofloxacin) 750 Mg Tablet, 750 MG PO DAILY Nortriptyline HCl (Nortriptyline HCl) 25 Mg Capsule, 25 MG PO QHS, (Reported) Prednisone (Prednisone) 50 Mg Tablet, 1 TAB PO DAILY Simvastatin (Simvastatin) 40 Mg Tablet, 40 MG PO QHS, (Reported) Scheduled PRN Acetaminophen (Tylenol Extra Strength) 500 Mg Tablet, 1,000 MG PO Q6H PRN for PAIN / FEVER Albuterol Sulfate (Ventolin Hfa) 18 Gm Hfa.aer.ad, 2 PUFF INH Q4-6HP PRN for wheezing Nitroglycerin (Nitrostat) 0.4 Mg Tab.subl, 0.4 MG SL NITRO PRN for CHEST PAIN, (Reported) Pimecrolimus (Elidel) 30 Gm Cream..g., 1 DOSE TOP DAILY PRN for ECZEMA, (Reported) APPLY TO FACE NEEDED Allergies Coded Allergies: No Known Allergies (Unverified , 08/17/20) ALLY LOREDO MD Aug 20, 2020 11:02
[2020-08-23 17:10] LABS: BODY FLUID CULTURE Not indicated. (.); ORGANISM ID Not indicated. (.); SPECIMEN SOURCE Urine (.); URINE STREP PNEUMONIAE ANTIGEN Negative (Negative)
[2020-08-23 17:10] LABS: BODY FLUID CULTURE Not indicated. (.); LEGIONELLA ANTIGEN URINE Negative (Negative); MYCOPLASMA PNEUMONIAE IgG 138 U/mL (0-99); MYCOPLASMA PNEUMONIAE IgM <770 U/mL (0-769); ORGANISM ID Not indicated. (.); SPECIMEN SOURCE Urine (.); URINE STREP PNEUMONIAE ANTIGEN Negative (Negative)
== END 2020-08-20 11:40 | disposition home health service (06) | DRG 871 ==
LOC: M 4MAIN 20:35
PROVIDERS: ADMIT Internal Medicine; ATTEND Internal Medicine
DX: A41.9 Sepsis, unspecified organism (principal); U07.1 COVID-19; J12.89 Other viral pneumonia; N39.0 Urinary tract infection, site not specified; I10 Essential (primary) hypertension; Z79.899 Other long term (current) drug therapy; E78.5 Hyperlipidemia, unspecified; K21.9 Gastro-esophageal reflux disease without esophagitis; F41.9 Anxiety disorder, unspecified; G47.30 Sleep apnea, unspecified; Z85.51 Personal history of malignant neoplasm of bladder

== ENCOUNTER 2020-08-21 23:23 | Inpatient (IN) | payer MEDICARE ==
[~2020-08-21] VITALS: Ht 172.7 cm; Wt 81.7 kg
[~2020-08-21 23:23] MED LIST: ACET-897 PO; AMLO1TAB25 PO; ATEN25TA PO; ELID1CRE11 TOP; ENSULIQ8 PO; FERR1TAB8 PO; GABA600T4 PO; LEVO750T13 PO; LEXA5TAB13 PO; NEXI20CA PO; NITR4TASL SL; NORT25CA2 PO; PRED50TA PO; SIMV40TA20 PO; VENTAER INH
[2020-08-22] VITALS (7 sets, daily range): BP systolic 131–155; BP diastolic 71–84
[2020-08-22] MEDS ORDERED: MOM 30ML SUSPENSION UDC PO PRN (01:30)
[2020-08-22] MEDS ORDERED: MAALOX 30 ML SUSP *UDC PO PRN (01:30)
--- NOTE | 2020-08-22 01:37 | HPEPDOC ---
[facility] Medical History & Physical Date of Admission Aug 22, 2020 Date of Service: Aug 22, 2020 Attending Physician: TALIA HARRISON MD History and Physical TIME OF SERVICE: 4:30 AM CHIEF COMPLAINT: Shortness of breath HISTORY OF PRESENT ILLNESS: This 79-year-old gentleman was admitted at [facility] from August 17 to for management of sepsis Covid and UTI; he was not a candidate for rem disivir and was discharged home with the levofloxacin and oral prednisone and instructed to follow-up with his primary care doctor. Over the next few days, he continued to feel short of breath especially with exertion. Therefore, he presented to [facility] , he was noted to be satting at 81-82% on 4 L via nasal cannula. He was also noted to have a potassium of 2.9. Providers at [facility] requested transfer for higher level of care. Currently, he reports feeling a little bit better with high flow nasal cannula. REVIEW OF SYSTEMS: 12 point review of systems negative except as listed in HPI PAST MEDICAL/ SURGICAL HISTORY: Hypertension Hyperlipidemia HX of Stage IIIB Melanoma Insomnia/intrinsic sleep disorder/periodic limb movement disorder Bladder cancer GERD Anxiety Bilateral cataract surgery SOCIAL HISTORY: Former smoker He doesn't drink alcohol or use drugs FAMILY HISTORY: Mother had CKD ALLERGIES: Please see below. HOME MEDICATIONS: Please see below. PHYSICAL EXAMINATION: VITAL SIGNS: Please see below. GEN: well-nourished / well developed/ NAD HEENT: lips acyanotic /mucus membranes moist and pink / sclera anicteric/ abdominojugular reflux CVS: RRR/NMRG/ no JVP / radial and dorsalis pedis pulses intact / no lower extremity edema LUNGS: able to speak full sentences without stopping to take a breath / coughing / lungs are clear to auscultation bilaterally on room air ABDOMEN: Contour (obese) MSK/EXTREMITIES: NCAT NEURO: CN 2-12 are grossly intact / speech is not dysarthric PSYCH: alert and oriented to person place and time/ able to understand and follo w all commands LABORATORY DATA: 08/22/20 02:27 IMAGING: Chest xray "IMPRESSION: Bilateral interstitial disease, predominantly in the mid and lower lung zones. No consolidation. No pleural effusions. Probable bilateral infectious pneumonia (such as Covid pneumonia, eg). " MICROBIOLOGY: Please see below. ASSESSMENT: Mr. Mcneil is a 79-year-old with a history of hypertension, remote history of melanoma, bladder cancer, anxiety, & GERD who was diagnosed with Covid 19 at [facility] a few days ago; he was admitted to [facility] from August 17 to and discharged home but returned because of persistent hypoxia. PLAN: 1. COVID 19 Pneumonia . He is being admitted because he is oxygen dependent Plan: admit to medical floor/ telemetry / contact & air borne precautions /continuous pulse ox/high flow nasal cannula/ continue with Levaquin and by mouth prednisone taper and albuterol when necessary / follow-up VBG, CBC, CMP, coags, including d-dimer, ferritin, LDH, troponin and BNP/it remains persistently hypoxic, the daytime team may consider consulting pulmonology / the day time team may consult Pulmonology / Acetaminophen PRN for fever 2. Covid related. Transaminitis Plan: Trend LFTs 3. Chronic Hypertension Plan: Amlodipine, atenolol 4. Hyperlipidemia Plan: Simvastatin 5. HX of Stage IIIB Melanoma & Bladder cancer Plan: Follow-up with hematology oncology team as scheduled Insomnia/intrinsic sleep disorder/periodic limb movement disorder 6. GERD Plan: Esomeprazole 7. Anxiety Plan: Citalopram DVT PROPHYLAXIS: Lovenox and aspirin DISPOSITION: home after more than 2 midnight's stay Home Medications Scheduled Amlodipine Besylate (Amlodipine Besylate) 10 Mg Tablet, 10 MG PO DAILY Atenolol (Atenolol) 25 Mg Tablet, 25 MG PO DAILY Escitalopram Oxalate (Lexapro) 5 Mg Tablet, 5 MG PO DAILY Esomeprazole Magnesium (Nexium) 20 Mg Capsule.dr, 20 MG PO DAILY Ferrous Sulfate (Ferrous Sulfate) 325 Mg Tablet, 325 MG PO DAILY Gabapentin (Gabapentin) 600 Mg Tablet, 600 MG PO BID Lactose-Reduced Food (Ensure Liquid) 237 Ml Liquid, 237 ML PO DAILY CONSUMES BETWEEN LUNCH AND DINNER Nortriptyline HCl (Nortriptyline HCl) 25 Mg Capsule, 25 MG PO QHS Prednisone (Prednisone) 50 Mg Tablet, 50 MG PO DAILY STARTED 08/20/20 X 5 DAYS Simvastatin (Simvastatin) 40 Mg Tablet, 40 MG PO QHS levoFLOXacin (levoFLOXacin) 750 Mg Tablet, 750 MG PO DAILY STARTED 08/20/20 X 5 DAYS Scheduled PRN Acetaminophen (Acetaminophen) 500 Mg Tablet, 1,000 MG PO Q6H PRN for PAIN Albuterol Sulfate (Ventolin Hfa) 18 Gm Hfa.aer.ad, 2 PUFF INH Q4-6HP PRN for wheezing Nitroglycerin (Nitrostat) 0.4 Mg Tab.subl, 0.4 MG SL NITRO PRN for CHEST PAIN Pimecrolimus (Elidel) 30 Gm Cream..g., 1 DOSE TOP DAILY PRN for ECZEMA APPLY TO FACE NEEDED Allergies Coded Allergies: No Known Allergies (Unverified , 08/17/20) A-FIB/CHADSVASC A-FIB History Current/History of A-Fib/PAF?: No Current PO Anticoag Therapy: No TALIA HARRISON MD Aug 22, 2020 01:37
[2020-08-22] MEDS ORDERED: VENTAER INH (01:56)
[2020-08-22] MEDS ORDERED: ACET-683 PO (01:56)
[2020-08-22] MEDS ORDERED: PRED50TA PO (01:56)
[2020-08-22] MEDS ORDERED: LEVO750T14 PO (01:56)
[2020-08-22 02:42] LABS: VENOUS HCO3 26.9 MEQ/L (23.0-27.0); VENOUS O2 SATURATION 85.2 % (60.0-80.0); VENOUS PARTIAL PRESSURE CO2 38.9 mmHg (38.0-50.0); VENOUS PARTIAL PRESSURE O2 47.7 mmHg (30.0-50.0); VENOUS PH 7.458 UNITS (7.330-7.430); VENOUS STANDARD HCO3 26.8 MEQ/L; VENOUS TOTAL CO2 28.1 MEQ/L (24.0-28.0)
[2020-08-22 02:45] LABS: BASO % 0.3 % (0.0-1.0); HEMATOCRIT 41.3 % (42.0-52.0); HEMOGLOBIN 13.8 g/dl (13.5-17.5); LYMPH # 0.3 10^3/uL (1.5-5.0); LYMPH % 2.2 % (24.0-44.0); MEAN CORPUSCULAR HEMOGLOBIN 29.7 pg (27.0-33.0); MEAN CORPUSCULAR HGB CONC 33.4 g/dl (32.0-36.5); MEAN CORPUSCULAR VOLUME 88.8 fl (80.0-96.0); MONO # 0.6 10^3/uL (0.0-0.8); MONO % 4.7 % (0.0-5.0); NEUTROPHILS # 10.8 10^3/uL (1.5-8.5); NEUTROPHILS % 91.4 % (36.0-66.0); PLATELET COUNT, AUTOMATED 210 10^3/uL (150-450); RED BLOOD COUNT 4.65 10^6/uL (4.30-6.10); WHITE BLOOD COUNT 11.8 10^3/uL (4.0-10.0)
[2020-08-22 03:01] LABS: INR 0.92; PROTHROMBIN TIME 12.6 SECONDS (12.5-14.3)
[2020-08-22 03:02] LABS: PARTIAL THROMBOPLASTIN TIME 30.3 SECONDS (24.2-38.5)
[2020-08-22 03:05] LABS: D-DIMER QUANT 1603.33 ng/ml (<500)
[2020-08-22 03:36] LABS: ABG BASE EXCESS 3.9 (-2.0-2.0); ABG HCO3 27.3 MEQ/L (22.0-26.0); ABG O2 SATURATION 91.2 % (95.0-99.0); ABG PARTIAL PRESSURE CO2 37.3 mmHg (35.0-45.0); ABG PARTIAL PRESSURE O2 57.3 mmHg (75.0-100.0); ABG STANDARD HCO3 27.8 MEQ/L (22.0-26.0); ABG TOTAL CO2 28.5 MEQ/L (23.0-31.0); ABG pH (ARTERIAL) 7.483 UNITS (7.350-7.450)
--- NOTE | 2020-08-22 04:00 | REPVR ---
PROCEDURE INFORMATION: Exam: XR Chest, 1 View Exam date and time: 08/22/20 (3:10am) Age: 79 years old Clinical indication: Worsening dyspnea and hypoxia despite therapy for Covid-19 TECHNIQUE: Imaging protocol: Portable CXR Views: 1 view COMPARISON: Portable CXR of 08/18/20 FINDINGS: Comparison is made with a portable CXR done on 08/18/20. Diffuse interstitial disease, predominantly in the mid and lower lung zones. No consolidation. No pleural effusions. Stable cardiomegaly. No pneumothorax. Surgical clips again seen in the right axillary region. IMPRESSION: Bilateral interstitial disease, predominantly in the mid and lower lung zones. No consolidation. No pleural effusions. Probable bilateral infectious pneumonia (such as Covid pneumonia, eg). Electronically signed by: Eve Lanier On 08/22/2020 04:00:40 AM
[2020-08-22] MEDS ORDERED: ALBUTEROL 90 MCG/ACT 8GM HFA INHALER INH PRN (04:15)
[2020-08-22] MEDS ORDERED: NITROGLYCERIN 0.4 MG SUBL TABLET SL PRN (04:15)
[2020-08-22 06:07] LABS: ALBUMIN 2.9 GM/DL (3.2-5.2); ALT/SGPT 155 U/L (12-78); BILIRUBIN,DIRECT 0.4 MG/DL (0.0-0.2); BILIRUBIN,TOTAL 0.9 MG/DL (0.2-1.0); BLOOD UREA NITROGEN 18 MG/DL (7-18); CALCIUM LEVEL 8.1 MG/DL (8.8-10.2); CARBON DIOXIDE LEVEL 27 MEQ/L (21-32); CHLORIDE LEVEL 100 MEQ/L (98-107); CK-MB VALUE MASS 1.3 NG/ML (<3.6); CPK CREATINE PHOSPHOKINASE 65 U/L (39-308); CREATININE FOR GFR 0.83 MG/DL (0.70-1.30); FERRITIN 2451 NG/ML (26-388); GLOMERULAR FILTRATION RATE > 60.0 (>42); GLUCOSE, FASTING 161 MG/DL (70-100); LDH LACTATE DEHYDROGENASE 429 U/L (87-241); NT-PRO BNP 540 PG/ML (<450); POTASSIUM SERUM 3.8 MEQ/L (3.5-5.1); SODIUM LEVEL 136 MEQ/L (136-145); TOTAL PROTEIN 6.6 GM/DL (6.4-8.2); TRIGLYCERIDES LEVEL 76 MG/DL (<150); TROPONIN I < 0.02 NG/ML (< 0.10)
[2020-08-22] MEDS: SIMVASTATIN 40 MG TAB PO SCH ×2 (06:23→20:23)
[2020-08-22] MEDS: NORTRIPTYLINE 25 MG CAP PO SCH ×2 (06:23→20:24)
[2020-08-22] MEDS: LevoFLOXacin 750 MG TABLET PO SCH (07:57)
--- NOTE | 2020-08-22 08:27 | ECGEPIP ---
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 Nonspecific ST/T wave abnormalities. No change from 08/17/20 Electronically Signed on 08-22-2020 8:26:49 EST by Sascha Arthur
[2020-08-22] MEDS ORDERED: predniSONE 50 MG TAB PO SCH (09:00)
[2020-08-22] MEDS ORDERED: ENOXAPARIN 40MG/0.4ML SYRINGE (J1650 PER 10MG) SC SCH (09:00)
[2020-08-22] MEDS: dexameTHASONE 4 MG/ML 1ML VIAL (J1100 PER 1MG) IV SCH (09:38)
[2020-08-22] MEDS: ASPIRIN 81 MG CHEW TABLET PEG SCH (09:38)
[2020-08-22] MEDS: ENOXAPARIN 40MG/0.4ML SYRINGE (J1650 PER 10MG) SC SCH ×2 (09:38→20:24)
[2020-08-22] MEDS: ESCITALOPRAM OXALATE 5MG TABLET (LEXAPRO) PO SCH (09:38)
[2020-08-22] MEDS: GABAPENTIN 300 MG CAP PO SCH ×2 (09:38→20:23)
[2020-08-22] MEDS: amLODIPine 10 MG TAB PO SCH (09:39)
[2020-08-22] MEDS: FERROUS SULFATE 325MG TAB PO SCH (09:40)
[2020-08-22] MEDS: PANTOPRAZOLE 40MG TAB (PROTONIX) PO SCH (09:40)
[2020-08-22] MEDS: atenoloL 25 MG TAB PO SCH (09:44)
[2020-08-22] MEDS ORDERED: PILL CUTTER 1 EACH XX PRN (10:00)
[2020-08-22] MEDS ORDERED: FUROSEMIDE 20MG/2ML VIAL (J1940) IV ONE (12:15)
[2020-08-22 13:46] LABS: HEPATITIS B SURFACE ANTIGEN NEGATIVE (NEGATIVE)
[2020-08-22] MEDS: AZITHROMYCIN INJ 500 MG, VIAL MATE ADAPTER 1 EACH in D5W 250 ML IV SCH (13:59)
--- NOTE | 2020-08-22 14:01 | IPNPDOC ---
Subjective Date Seen The patient was seen on 08/22/20. Subjective Chief Complaint/HPI HISTORY OF PRESENT ILLNESS: Pt was seen at bedside this am. Pt continues to require Vapotherm 35 L with 100% FIO2 and satting at 94%. Will start remdisivir and D/C prednisone and add dexamethasone and Rocephin and Zithromax as CXR appears to be worsened from prior days. Will try and wean off of vapotherm as tolerated. REVIEW OF SYSTEMS: CONSTITUTIONAL: No fevers, chills, diaphoresis overnight HEENT: No blurred vision, loss of vision, or headache, no hearing loss CARDIOVASCULAR: patient denies chest pain, palpitations. RESPIRATORY: patient denies shortness of breath, cough, hemoptysis. GASTROINTESTINAL: No epigastric abdominal pain, constipation GENITOURINARY: No dysuria SKIN: patient denies rashes, necrotic looking skin noted MUSCULOSKELETAL: patient denies joint pain, neck pain. NEUROLOGICA: No focal neuro deficits, strength 4/5 throughout PSYCHIATRIC: appropriate mood and affect ENDOCRINE: patient denies polyuria, heat intolerance, cold intolerance HEMATOLOGIC/LYMPHATIC: patient denies easy bruising, no visible bleeding PHYSICAL EXAMINATION: VITAL SIGNS: please see below General: lying in bed, comfortable; vapotherm set at 35L and FIO2 100% satting at 94 HEENT: PERRLA, EOMI, sclerae appears mild jaundiced, no hearing loss Neck: supple, normal ROM, no JVD Respiratory: lungs CTAB, no wheeze, no rales, no crackles CVS: Sinus rhythm, normal S1, S2, no murmurs Abdomen: non distended and non tender on palpation, + BS, no guarding Extremities: no edema, pulses 2+ lower extr MSK: no joint deformities, normal ROM, left CVA tenderness to percussion Neuro: no focal neuro deficits, moving all 4 extremities, CN2-12 intact. Strength 4/5 in all 4 extremities. No nystagmus. Psych: calm, cooperative, AAO x 3 ASSESSMENT AND PLAN: This is a 79-year-old with a history of hypertension, remote history of melanoma, bladder cancer, anxiety, & GERD who was diagnosed with Covid 19 (08/17) at [facility] and transferred to [facility] and admitted for sepsis 2/2 to COVID 19. He was treated with IV rocephin azithromycin and transitioned to PO levaquin for 5 more days at time of discharge. He was given IV steroids and then transitioned PO prednosone for 5 days prior to discharge. This gentleman presents back to the ER for persistent hypoxia. He's admitted to the hospitalist service and currently needing 35L of vapotherm and 100% of FIO2 to sat above 90%. #COVID 19 PNA - This am he's satting at 94% on 35L vapotherm with 100% FiO2. - Will try and wean to 30L of vapotherm and if can tolerate, will try to decr fiO2 to 80%. - Will start remdisivir 200 loading then 100mg daily for 4 more days - Will d/c prednisone and add dexamethasone 5mg IV - Will switch lovenox daily to BID for AC - Will add rocephin and azithromicin as CXR appears to be worsening compared to prior XR - Will give 20mg IV lasix x1 given worsened congestion seen on radiograph - Will closely monitor patient and will consult pulmonary if condition remains same or worsens - droplet and isolation precautions # Hypertension - c/w amlodipine - c/w atenolol #Hyperlipidemia. - c/w Simvastatin # Hx of Stage IIIB Melanoma & Bladder cancer - Follow-up with hematology oncology outpt #GERD - protonix # Hx of Anxiety - C/w Citalopram DVT ppx: Lovenox 40 BID GI ppx: protonix Fluids: none Diet: 2g Na Code: Full Disposition: Weaning to 30L vapotherm and if can tolerate will wean FIO2 to 80%. Will monitor on remdisivir and rocephin and zithromax and dexamethasone. If conditions worsen will consult pulmonology and prepare to transfer to ICU. DISPOSITION: home after more than 2 midnight's stay Assessment /Plan Plan/VTE VTE Prophylaxis Ordered?: Yes VS, I&O, 24H, Fishbone Vital Signs/I&O Vital Signs Date Time Temp Pulse Resp B/P (MAP) Pulse Ox O2 Delivery O2 Flow Rate FiO2 08/22/20 09:39 97 131/80 08/22/20 07:00 90 HVNI-Vapotherm 30.0 100 08/22/20 04:00 98.3 18 I&O- Last 24 Hours up to 6 AM 08/22/20 06:00 Intake Total 240 ml Output Total 350 ml Balance -110 ml Laboratory Data 24H LABS Laboratory Tests 2 08/22/20 02:27: Immature Granulocyte % (Auto) 1.4, Neutrophils (%) (Auto) 91.4H, Lymphocytes (%) (Auto) 2.2L, Monocytes (%) (Auto) 4.7, Eosinophils (%) (Auto) 0.0, Basophils (%) (Auto) 0.3, Neutrophils # (Auto) 10.8H, Lymphocytes # (Auto) 0.3L, Monocytes # (Auto) 0.6, Eosinophils # (Auto) 0.0, Basophils # (Auto) 0.0, Nucleated Red Blood Cells % (auto) 0.0, Prothrombin Time 12.6, Prothromb Time International Ratio 0.92, Activated Partial Thromboplast Time 30.3, Fibrinogen 728H, D-Dimer, Quantitative 1603.33H, Blood Gas Bicarbonate Standard 26.8, Venous Blood pH 7.458H, Venous Blood Partial Pressure CO2 38.9, Venous Blood Partial Pressure O2 47.7, Venous Blood Total Carbon Dioxide 28.1H, Venous Blood HCO3 26.9, Venous Blood Oxygen Saturation 85.2H, Venous Blood Base Excess 3.0H, Anion Gap 9, Glomerular Filtration Rate > 60.0, Lactic Acid Level 1.9, Calcium Level 8.1L, Ferritin 2451H, Total Bilirubin 0.9#, Direct Bilirubin 0.4H, Aspartate Amino Transf (AST/SGOT) 119H, Alanine Aminotransferase (ALT/SGPT) 155H, Alkaline Phosphatase 82, Lactate Dehydrogenase 429H, Total Creatine Kinase 65, Creatine Kinase MB 1.3, Creatine Kinase MB Relative Index 2.00, Troponin I < 0.02, C- Reactive Protein, Quantitative 20.10H, VQ-Vjt-J-Type Natriuretic Peptide 540H, Total Protein 6.6, Albumin 2.9L, Albumin/Globulin Ratio 0.8, Triglycerides Level 76, Procalcitonin 0.93, Hepatitis B Surface Antigen NEGATIVE 08/22/20 02:28: 08/22/20 03:00: Blood Gas Bicarbonate Standard 27.8H, Arterial Blood pH 7.483H, Arterial Blood Partial Pressure CO2 37.3, Arterial Blood Partial Pressure O2 57.3L, Arterial Blood Total CO2 28.5, Arterial Blood HCO3 27.3H, Arterial Blood Base Excess 3.9H , Arterial Blood Oxygen Saturation 91.2L 08/22/20 03:30: CBC/BMP Laboratory Tests 08/22/20 02:27 GME ATTESTATION GME ATTESTATION My faculty preceptor for this patient encounter was physically present during the encounter and was fully available. All aspects of the patient interview, examination, medical decision making process, and medical care plan development were reviewed and approved by the faculty preceptor. The faculty preceptor is aware and concurs with the plan as stated in the body of this note and will attest to such by his/her cosignature. ATTENDING NOTE I, Chip Hagan MD, have independently examined this patient and performed my own physical exam, as well as reviewed the documentation and edited where ne cessary. I have discussed in detail with the resident / student the findings and plan of treatment as documented by the resident / student and edited their note. I agree with their findings and treatment plan and have edited their documentation. Venecia Lebron DO Aug 22, 2020 14:01 CHIP HAGAN MD Sep 01, 2020 14:28
[2020-08-22 14:15] LABS: HIV 1&2 SCREEN CENTAUR NEGATIVE (NEGATIVE)
[2020-08-22 14:42] LABS: BASO # 0.1 10^3/uL (0.0-0.2); BASO % 0.4 % (0.0-1.0); HEMATOCRIT 43.2 % (42.0-52.0); HEMOGLOBIN 14.3 g/dl (13.5-17.5); LYMPH # 0.3 10^3/uL (1.5-5.0); LYMPH % 2.4 % (24.0-44.0); MEAN CORPUSCULAR HEMOGLOBIN 29.1 pg (27.0-33.0); MEAN CORPUSCULAR HGB CONC 33.1 g/dl (32.0-36.5); MONO # 0.9 10^3/uL (0.0-0.8); MONO % 6.2 % (0.0-5.0); NEUTROPHILS # 12.4 10^3/uL (1.5-8.5); NEUTROPHILS % 88.9 % (36.0-66.0); PLATELET COUNT, AUTOMATED 239 10^3/uL (150-450); RED BLOOD COUNT 4.91 10^6/uL (4.30-6.10)
[2020-08-22 14:52] LABS: INR 1.06
[2020-08-22 14:53] LABS: PARTIAL THROMBOPLASTIN TIME 32.9 SECONDS (24.2-38.5)
[2020-08-22 14:56] LABS: D-DIMER QUANT 1935.59 ng/ml (<500)
[2020-08-22] MEDS: cefTRIAXone SOD 1 GM in D5W MINI-BAG PLUS 50 ML IV SCH (15:17)
[2020-08-22 15:34] LABS: C REACTIVE PROTEIN QUANTITATIV 18.1 MG/DL (0.00-0.30)
[2020-08-22] MEDS ORDERED: SODIUM CHLORIDE 0.9% INJ 10 ML SYR IV ONE (16:00)
[2020-08-23] VITALS (12 sets, daily range): BP systolic 134–151; BP diastolic 69–76; O2SAT 86–92
[2020-08-23] MEDS: LevoFLOXacin 750 MG TABLET PO SCH (05:44)
[2020-08-23] MEDS: ESCITALOPRAM OXALATE 5MG TABLET (LEXAPRO) PO SCH (09:07)
[2020-08-23] MEDS: PANTOPRAZOLE 40MG TAB (PROTONIX) PO SCH (09:07)
[2020-08-23] MEDS: atenoloL 25 MG TAB PO SCH (09:07)
[2020-08-23] MEDS: GABAPENTIN 300 MG CAP PO SCH ×2 (09:08→21:31)
[2020-08-23] MEDS: ASPIRIN 81 MG CHEW TABLET PEG SCH (09:08)
[2020-08-23] MEDS: ENOXAPARIN 40MG/0.4ML SYRINGE (J1650 PER 10MG) SC SCH (09:08)
[2020-08-23] MEDS: amLODIPine 10 MG TAB PO SCH (09:08)
[2020-08-23] MEDS: FERROUS SULFATE 325MG TAB PO SCH (09:08)
[2020-08-23] MEDS: dexameTHASONE 4 MG/ML 1ML VIAL (J1100 PER 1MG) IV SCH (09:09)
[2020-08-23] MEDS: AZITHROMYCIN INJ 500 MG, VIAL MATE ADAPTER 1 EACH in D5W 250 ML IV SCH (12:30)
--- NOTE | 2020-08-23 12:50 | IPNPDOC ---
Text Note Date of Service The patient was seen on 08/23/20. NOTE Subjective Pt was seen at bedside this am. Patient is requiring Vapotherm 35 L with 90% FIO2 and satting at 93%, which is down from 100 was FiO2 yesterday. Physical examination General: lying in bed, comfortable; vapotherm set at 35L and FIO2 90% satting at 93 HEENT: PERRLA, EOMI, sclerae appears mild jaundiced, no hearing loss Neck: supple, normal ROM, no JVD Respiratory: lungs CTAB, no wheeze, no rales, no crackles CVS: Sinus rhythm, normal S1, S2, no murmurs Abdomen: non distended and non tender on palpation, + BS, no guarding Extremities: no edema, pulses 2+ lower extr MSK: no joint deformities, normal ROM, left CVA tenderness to percussion Neuro: no focal neuro deficits, moving all 4 extremities, CN2-12 intact. Strength 4/5 in all 4 extremities. No nystagmus. Psych: calm, cooperative, AAO x 3 Assessment and plan This is a 79-year-old with a history of hypertension, remote history of melanoma, bladder cancer, anxiety, & GERD who was diagnosed with Covid 19 (08/17) at [facility] and transferred to [facility] and admitted for sepsis 2/2 to COVID 19. He was treated with IV rocephin azithromycin and transitioned to PO levaquin for 5 more days at time of discharge. He was given IV steroids and then transitioned PO prednosone for 5 days prior to discharge. This gentleman presents back to the ER for persistent hypoxia. He's admitted to the hospitalist service and currently needing 35L of vapotherm and 100% of FIO2 to sat above 90%. 1. COVID 19 PNA: He is saturating 93% on 35 L and 90 FiO2 of Vapotherm. We'll try to be escalated as tolerated. Remdesevir and has been started and it is day 2 today. He continues to be on the dexamethasone on 6 mg IV. As the d-dimer has been going up from 16-1900. His Lovenox has been switched to twice a day 40 mg subcutaneous. Continue to monitor. He has made minor improvement and his antibiotics with azithromycin and Rocephin will be continued. Atypical workup and sputum culture also have been sent. Continue Covid precautions 2. Hypertension: Continue his amlodipine and atenolol. Blood pressure in accepta ble range 3. Hyperlipidemia. Continue Simvastatin 4. Hx of Stage IIIB Melanoma & Bladder cancer: Follow-up with hematology oncology outpt 5. GERD: protonix 6. Hx of Anxiety : C/w Citalopram DVT ppx: Lovenox 40 BID Continue monitoring d-dimer, fibrinogen. Disposition: Unknown at this time VS,Fishbone, I+O VS, Fishbone, I+O Laboratory Tests 08/22/20 14:25 Vital Signs Date Time Temp Pulse Resp B/P (MAP) Pulse Ox O2 Delivery O2 Flow Rate FiO2 08/23/20 12:18 96.5 63 22 139/76 (97) 90 HVNI-Vapotherm 35.0 90 I&O- Last 24 Hours up to 6 AM 08/23/20 06:00 Intake Total 1175 ml Output Total 1700 ml Balance -525 ml OLGA HAGAN MD Aug 23, 2020 12:50
[2020-08-23] MEDS: cefTRIAXone SOD 1 GM in D5W MINI-BAG PLUS 50 ML IV SCH (14:39)
[2020-08-23] MEDS: SODIUM CHLORIDE 0.9% INJ 10 ML SYR IV SCH (15:47)
[2020-08-23] MEDS: SIMVASTATIN 40 MG TAB PO SCH (21:30)
[2020-08-23] MEDS: ACETAMINOPHEN TAB 650MG DOSE (2X325MG) PO PRN (21:31)
[2020-08-23] MEDS: NORTRIPTYLINE 25 MG CAP PO SCH (23:12)
[2020-08-24] VITALS (13 sets, daily range): BP systolic 129–165; BP diastolic 69–78; O2SAT 89–94
[2020-08-24] MEDS: LevoFLOXacin 750 MG TABLET PO SCH (06:06)
[2020-08-24 08:47] LABS: BASO # 0.1 10^3/uL (0.0-0.2); BASO % 0.8 % (0.0-1.0); HEMATOCRIT 41.7 % (42.0-52.0); HEMOGLOBIN 13.9 g/dl (13.5-17.5); LYMPH # 1.3 10^3/uL (1.5-5.0); MEAN CORPUSCULAR HEMOGLOBIN 29.3 pg (27.0-33.0); MEAN CORPUSCULAR HGB CONC 33.3 g/dl (32.0-36.5); MONO # 1.2 10^3/uL (0.0-0.8); MONO % 8.9 % (0.0-5.0); NEUTROPHILS # 10.6 10^3/uL (1.5-8.5); NEUTROPHILS % 76.3 % (36.0-66.0); PLATELET COUNT, AUTOMATED 341 10^3/uL (150-450); RED BLOOD COUNT 4.74 10^6/uL (4.30-6.10); WHITE BLOOD COUNT 13.9 10^3/uL (4.0-10.0)
[2020-08-24] MEDS: amLODIPine 10 MG TAB PO SCH (08:58)
[2020-08-24] MEDS: ESCITALOPRAM OXALATE 5MG TABLET (LEXAPRO) PO SCH (08:58)
[2020-08-24] MEDS: ASPIRIN 81 MG CHEW TABLET PEG SCH (08:58)
[2020-08-24] MEDS: atenoloL 25 MG TAB PO SCH (08:59)
[2020-08-24] MEDS: GABAPENTIN 300 MG CAP PO SCH ×2 (08:59→21:08)
[2020-08-24] MEDS: dexameTHASONE 4 MG/ML 1ML VIAL (J1100 PER 1MG) IV SCH ×2 (08:59→21:08)
[2020-08-24] MEDS: FERROUS SULFATE 325MG TAB PO SCH (09:00)
[2020-08-24] MEDS: PANTOPRAZOLE 40MG TAB (PROTONIX) PO SCH (09:00)
[2020-08-24] MEDS ORDERED: ENOXAPARIN 40MG/0.4ML SYRINGE (J1650 PER 10MG) SC SCH (09:00)
[2020-08-24 09:11] LABS: ALBUMIN 2.6 GM/DL (3.2-5.2); ALT/SGPT 88 U/L (12-78); BILIRUBIN,TOTAL 0.7 MG/DL (0.2-1.0); BLOOD UREA NITROGEN 26 MG/DL (7-18); CALCIUM LEVEL 8.1 MG/DL (8.8-10.2); CARBON DIOXIDE LEVEL 27 MEQ/L (21-32); CHLORIDE LEVEL 101 MEQ/L (98-107); CREATININE FOR GFR 0.76 MG/DL (0.70-1.30); GLOMERULAR FILTRATION RATE > 60.0 (>42); GLUCOSE, FASTING 130 MG/DL (70-100); POTASSIUM SERUM 3.8 MEQ/L (3.5-5.1); SODIUM LEVEL 137 MEQ/L (136-145); TOTAL PROTEIN 5.9 GM/DL (6.4-8.2)
--- NOTE | 2020-08-24 12:18 | IPNPDOC ---
Text Note Date of Service The patient was seen on 08/24/20. NOTE Pt was seen at bedside this am. Patient is requiring Vapotherm 35 L with 100% FIO2 and satting at 95%, and I have decreased FiO2 90% today. Physical examination General: lying in bed, comfortable; on vapotherm HEENT: PERRLA, EOMI, sclerae appears mild jaundiced, no hearing loss Neck: supple, normal ROM, no JVD Respiratory: lungs CTAB, no wheeze, no rales, no crackles CVS: Sinus rhythm, normal S1, S2, no murmurs Abdomen: non distended and non tender on palpation, + BS, no guarding Extremities: no edema, pulses 2+ lower extr MSK: no joint deformities, normal ROM, left CVA tenderness to percussion Neuro: no focal neuro deficits, moving all 4 extremities, CN2-12 intact. Strength 4/5 in all 4 extremities. No nystagmus. Psych: calm, cooperative, AAO x 3 Assessment and plan This is a 79-year-old with a history of hypertension, remote history of melanoma, bladder cancer, anxiety, & GERD who was diagnosed with Covid 19 (08/17) at [facility] and transferred to [facility] and admitted for sepsis 2/2 to COVID 19. He was treated with IV rocephin azithromycin and transitioned to PO levaquin for 5 more days at time of discharge. He was given IV steroids and then transitioned PO prednosone for 5 days prior to discharge. This gentleman presents back to the ER for persistent hypoxia. He's admitted to the hospitalist service and currently needing 35L of vapotherm and 90% of FIO2 to sat above 90%. 1. COVID 19 PNA: He is saturating 93% on 35 L and 90 FiO2 of Vapotherm. We'll try to deescalated as tolerated. Remdesevir to be given for a total of 10 days as he is categorized in severe Covid 19 respiratory infection. He continues to be on the dexamethasone on 6 mg twice a day.His Lovenox has been switched to twice a day 40 mg subcutaneous. Continue to monitor. He has made minor improvement and his antibiotics with azithromycin and Rocephin will be continued. Atypical workup and sputum culture have been negative so far. Continue Covid precautions 2. Hypertension: Continue his amlodipine and atenolol. Blood pressure in acceptable range 3. Hyperlipidemia. Continue Simvastatin 4. Hx of Stage IIIB Melanoma & Bladder cancer: Follow-up with hematology oncolog y outpt 5. GERD: protonix 6. Hx of Anxiety : C/w Citalopram DVT ppx: Lovenox 40 BID Continue monitoring d-dimer, fibrinogen. Out of bed to chair, incentive spirometer. Gave the nursing team. The instructions as well as the patient. Disposition: Unknown at this time VS,Tisha, I+O VS, Soniae, I+O Laboratory Tests 08/24/20 08:07 Vital Signs Date Time Temp Pulse Resp B/P (MAP) Pulse Ox O2 Delivery O2 Flow Rate FiO2 08/24/20 10:09 95 HVNI-Vapotherm 35.0 100 08/24/20 08:58 73 137/75 08/24/20 08:00 97.1 20 I&O- Last 24 Hours up to 6 AM 08/24/20 06:00 Intake Total 1875 ml Output Total 1400 ml Balance 475 ml OLGA HAGAN MD Aug 24, 2020 12:18
[2020-08-24] MEDS: AZITHROMYCIN INJ 500 MG, VIAL MATE ADAPTER 1 EACH in D5W 250 ML IV SCH (14:05)
[2020-08-24 17:07] LABS: HEPATITIS B CORE ANTIBODY IGG Negative (Negative); MYCOPLASMA PNEUMONIAE IgG 101 U/mL (0-99); MYCOPLASMA PNEUMONIAE IgM <770 U/mL (0-769)
[2020-08-24] MEDS: SODIUM CHLORIDE 0.9% INJ 10 ML SYR IV SCH (17:27)
[2020-08-24] MEDS: cefTRIAXone SOD 1 GM in D5W MINI-BAG PLUS 50 ML IV SCH (17:28)
[2020-08-24] MEDS ORDERED: SLF 3 ML SYR IV PRN (18:15)
[2020-08-24] MEDS: ENOXAPARIN 40MG/0.4ML SYRINGE (J1650 PER 10MG) SC SCH (21:08)
[2020-08-24] MEDS: SIMVASTATIN 40 MG TAB PO SCH (21:08)
[2020-08-24] MEDS: NORTRIPTYLINE 25 MG CAP PO SCH (21:08)
[2020-08-24] MEDS: SLF 3 ML SYR IV SCH (21:08)
[2020-08-25] VITALS (7 sets, daily range): BP systolic 108–166; BP diastolic 59–79; O2SAT 90–98
[2020-08-25] MEDS: SLF 3 ML SYR IV SCH ×3 (05:28→22:00)
[2020-08-25] MEDS: LevoFLOXacin 750 MG TABLET PO SCH (05:28)
[2020-08-25 06:36] LABS: HEMATOCRIT 42.2 % (42.0-52.0); HEMOGLOBIN 14.5 g/dl (13.5-17.5); MEAN CORPUSCULAR HEMOGLOBIN 30.7 pg (27.0-33.0); MEAN CORPUSCULAR HGB CONC 34.4 g/dl (32.0-36.5); MEAN CORPUSCULAR VOLUME 89.2 fl (80.0-96.0); PLATELET COUNT, AUTOMATED 342 10^3/uL (150-450); RED BLOOD COUNT 4.73 10^6/uL (4.30-6.10); WHITE BLOOD COUNT 17.1 10^3/uL (4.0-10.0)
[2020-08-25 07:05] LABS: ALBUMIN 2.6 GM/DL (3.2-5.2); ALT/SGPT 86 U/L (12-78); BILIRUBIN,TOTAL 0.7 MG/DL (0.2-1.0); BLOOD UREA NITROGEN 25 MG/DL (7-18); CALCIUM LEVEL 8.4 MG/DL (8.8-10.2); CARBON DIOXIDE LEVEL 27 MEQ/L (21-32); CHLORIDE LEVEL 102 MEQ/L (98-107); CREATININE FOR GFR 0.82 MG/DL (0.70-1.30); GLOMERULAR FILTRATION RATE > 60.0 (>42); GLUCOSE, FASTING 175 MG/DL (70-100); POTASSIUM SERUM 4.5 MEQ/L (3.5-5.1); SODIUM LEVEL 136 MEQ/L (136-145); TOTAL PROTEIN 5.9 GM/DL (6.4-8.2)
--- NOTE | 2020-08-25 08:39 | REP ---
INDICATION: COVID COMPARISON: 08/22/2020, 08/18/2020 TECHNIQUE: Portable AP view of the chest FINDINGS: Underlying chronic interstitial changes with superimposed bilateral infiltrates appear relatively similar to prior examinations and possibly mildly progressive. No obvious effusion. No pneumothorax. Visualized mediastinum and cardiac silhouette are stable with cardiomegaly again suggested. Evidence for prior right axillary node dissection. Skeletal structures are grossly intact. IMPRESSION: Multifocal airspace disease suggested and possibly minimally progressive. <Electronically signed by Micah Wilkins > 08/25/20 [id number]
--- NOTE | 2020-08-25 09:53 | IPNPDOC ---
Text Note Date of Service The patient was seen on 08/25/20. NOTE Subjective: Patient seen and examined at bedside. Doing well overnight. Says he is feeling better. Afebrile overnight, saturating 92% on vapotherm (35L on 100% FiO2) No pain noted. However patient notes he is constipated x 6 days now. Objective: Constitutional: Alert and oriented x 3. Not in distress HEENT: PEERLA. EOMI Neck: Supple. Non-tender Cardiovascular: HS 1 + 2 present. No added sounds, murmurs, or regurgitations Respiratory: Mild crackling bilaterally. No wheezing Abdomen: Soft and non-tender Extremites: no-edema Neurological: AO x 3. No FND Assessment/Plan 79-year-old with a history of hypertension, remote history of melanoma, bladder cancer, anxiety, & GERD who was diagnosed with Covid 19 (08/17) at [facility] and transferred to [facility] and admitted for presumed sepsis 2/2 to COVID 19. He was treated with IV rocephin azithromycin and transitioned to PO levoquin for 5 more days at time of discharge. He was given IV steroids and then transitioned PO prednisone for 5 days prior to discharge. This gentleman presents back to the ER for persistent hypoxia. He's admitted to the hospitalist service and currently needing 35L of vapotherm and 90% of FIO2 to sat above 90%. #COVID 19 PNA (stable) - Diagnosed 08/17. - Blood cultures negative. Pending urine legionella and strep. Pneuo serologies - 08/25: vital signs stable --> 92% on vapotherm 35 L of 100% FiO2 - CXR 08/25 compared to 08/22 --> minimally progressive multifocal airspace disease. - Inflammatory markers downtrending. Trend D-Dimer and fibrinogen - Hospital regiment: Decadron (08/22 - )--> Switched to BID dosing 08/24, Ceftriaxone and azithromycin ( 08/22 - ), remdesivir (08/23 - 08/31), Lovenox 40 BID - Encourage incentive spirometry use and to sit in chair to prevent atelectasis #Hypertension - C/w atenolol 25 daily, amlodipine 10 mg daily #Constipation -No BM x 6 days -Fleet enema and senokot ordered. milk of mag PRN #Hyperlipidemia - Continue Simvastatin 40 qhs #Hx of Stage IIIB Melanoma & Bladder cancer - Follow-up with hematology oncology outpt #GERD - protonix 20 daily #Hx of Anxiety - C/w excitalopram 5 daily Diet: Regular DVT PPX: Lovenox BID Disposition: Unknown at this time Case discussed with Dr. Katia Worthy MD Hospitalist Resident Tisha CHRISTIANSEN, I+O VSTisha I+O Laboratory Tests 08/25/20 05:42 Vital Signs Date Time Temp Pulse Resp B/P (MAP) Pulse Ox O2 Delivery O2 Flow Rate FiO2 08/25/20 08:00 96.9 78 22 139/75 (96) 92 HVNI-Vapotherm 35.0 80 I&O- Last 24 Hours up to 6 AM 08/25/20 06:00 Intake Total 1505 ml Output Total 1550 ml Balance -45 ml GME ATTESTATION GME ATTESTATION My faculty preceptor for this patient encounter was physically present during the encounter and was fully available. All aspects of the patient interview, examination, medical decision making process, and medical care plan development were reviewed and approved by the faculty preceptor. The faculty preceptor is aware and concurs with the plan as stated in the body of this note and will attest to such by his/her cosignature. ATTENDING NOTE I, Chip Montalvo MD, have independently examined this patient and performed my own physical exam, as well as reviewed the documentation and edited where necessary. I have discussed in detail with the resident / student the findings and plan of treatment as documented by the resident / student and edited their note. I agree with their findings and treatment plan and have edited their documentation. GABRIELLA WORTHY M.D.,PGY-2 Aug 25, 2020 09:53 CHIP MONTALVO MD Sep 01, 2020 14:44
[2020-08-25] MEDS ORDERED: FLEET ENEMA PR ONE (10:00)
[2020-08-25 10:17] LABS: D-DIMER QUANT 945.82 ng/ml (<500)
[2020-08-25] MEDS: FERROUS SULFATE 325MG TAB PO SCH (10:17)
[2020-08-25] MEDS: ASPIRIN 81 MG CHEW TABLET PEG SCH (10:17)
[2020-08-25] MEDS: GABAPENTIN 300 MG CAP PO SCH ×2 (10:17→22:00)
[2020-08-25] MEDS: ESCITALOPRAM OXALATE 5MG TABLET (LEXAPRO) PO SCH (10:17)
[2020-08-25] MEDS: atenoloL 25 MG TAB PO SCH (10:20)
[2020-08-25] MEDS: amLODIPine 10 MG TAB PO SCH (10:20)
[2020-08-25] MEDS: dexameTHASONE 4 MG/ML 1ML VIAL (J1100 PER 1MG) IV SCH ×2 (10:21→21:59)
[2020-08-25] MEDS: ENOXAPARIN 40MG/0.4ML SYRINGE (J1650 PER 10MG) SC SCH ×2 (10:21→21:59)
[2020-08-25] MEDS: PANTOPRAZOLE 40MG TAB (PROTONIX) PO SCH (10:21)
[2020-08-25] MEDS: AZITHROMYCIN INJ 500 MG, VIAL MATE ADAPTER 1 EACH in D5W 250 ML IV SCH (14:07)
[2020-08-25] MEDS: cefTRIAXone SOD 1 GM in D5W MINI-BAG PLUS 50 ML IV SCH (14:07)
[2020-08-25] MEDS: SODIUM CHLORIDE 0.9% INJ 10 ML SYR IV SCH (15:00)
[2020-08-25 19:09] LABS: BODY FLUID CULTURE Not indicated. (.); LEGIONELLA ANTIGEN URINE Negative (Negative); ORGANISM ID Not indicated. (.); SPECIMEN SOURCE Urine (.); URINE STREP PNEUMONIAE ANTIGEN Negative (Negative)
[2020-08-25] MEDS: SENOKOT S TAB PO SCH (21:59)
[2020-08-25] MEDS: SIMVASTATIN 40 MG TAB PO SCH (22:00)
[2020-08-25] MEDS: NORTRIPTYLINE 25 MG CAP PO SCH (22:00)
[2020-08-26] VITALS (9 sets, daily range): BP systolic 133–153; BP diastolic 67–89; O2SAT 88–94
[2020-08-26] MEDS: SLF 3 ML SYR IV SCH ×3 (06:24→20:50)
--- NOTE | 2020-08-26 07:16 | IPNPDOC ---
Text Note Date of Service The patient was seen on 08/26/20. NOTE Subjective: Patient seen and examined at bedside. Doing well overnight. Afebrile overnight, saturating 92% on vapotherm (30L on 70% FiO2) No pain noted. BM last night. Constipation resolved Objective: Constitutional: Alert and oriented x 3. Not in distress HEENT: PEERLA. EOMI Neck: Supple. Non-tender Cardiovascular: HS 1 + 2 present. No added sounds, murmurs, or regurgitations Respiratory: Mild crackling bilaterally. No wheezing Abdomen: Soft and non-tender Extremites: no-edema Neurological: AO x 3. No FND Assessment/Plan 79-year-old with a history of hypertension, remote history of melanoma, bladder cancer, anxiety, & GERD who was diagnosed with Covid 19 (08/17) at [facility] and transferred to [facility] and admitted for presumed sepsis 2/2 to COVID 19. He was treated with IV rocephin azithromycin and transitioned to PO levoquin for 5 more days at time of discharge. He was given IV steroids and then transitioned PO prednisone for 5 days prior to discharge. This gentleman presents back to the ER for persistent hypoxia. He's admitted to the hospitalist service and currently needing 35L of vapotherm and 90% of FIO2 to sat above 90%. #COVID 19 PNA (stable) - Diagnosed 08/17. - Blood cultures negative. Pending urine legionella and strep. Pneuo serologies - 08/25: vital signs stable --> 92% on vapotherm 35 L of 100% FiO2 - CXR 08/25 compared to 08/22 --> minimally progressive multifocal airspace disease. - Inflammatory markers downtrending. Trend D-Dimer and fibrinogen - Hospital regiment: Decadron (08/22 - )--> Switched to BID dosing 08/24, Ceftriaxone (08/22- 08/29) and azithromycin ( 08/22 - 08/26), remdesivir (08/23 - 08/31), Lovenox 40 BID - Encourage incentive spirometry use and to sit in chair to prevent atelectasis -Vit C and zinc supplementation -Proning encouraged. Instructions given to nurse #Hypertension - C/w atenolol 25 daily, amlodipine 10 mg daily #Constipation -Resolved. BM on 08/26. Milk of mag PRN #Hyperlipidemia - Continue Simvastatin 40 qhs #Hx of Stage IIIB Melanoma & Bladder cancer - Follow-up with hematology oncology outpt #GERD - protonix 20 daily #Hx of Anxiety - C/w excitalopram 5 daily Diet: Regular DVT PPX: Lovenox BID Disposition: Unknown at this time. COVID labs q2d (next labs due 08/28) Case discussed with Dr. Katia Finnegan MD Hospitalist Resident VSTisha, I+O VSTisha I+O Vital Signs Date Time Temp Pulse Resp B/P (MAP) Pulse Ox O2 Delivery O2 Flow Rate FiO2 08/26/20 04:00 35.0 90 08/26/20 04:00 97.4 62 19 133/89 (104) 94 HVNI-Vapotherm I&O- Last 24 Hours up to 6 AM 08/26/20 06:00 Intake Total 240 ml Output Total 650 ml Balance -410 ml GME ATTESTATION GME ATTESTATION My faculty preceptor for this patient encounter was physically present during the encounter and was fully available. All aspects of the patient interview, examination, medical decision making process, and medical care plan development were reviewed and approved by the faculty preceptor. The faculty preceptor is aware and concurs with the plan as stated in the body of this note and will attest to such by his/her cosignature. ATTENDING NOTE I, Chip Montalvo MD, have independently examined this patient and performed my own physical exam, as well as reviewed the documentation and edited where necessary. I have discussed in detail with the resident / student the findings and plan of treatment as documented by the resident / student and edited their note. I agree with their findings and treatment plan and have edited their documentation. GABRIELLA FINNEGAN M.D.,PGY-2 Aug 26, 2020 07:16 CHIP MONTALVO MD Sep 01, 2020 14:48
[2020-08-26 08:32] LABS: BASO # 0.1 10^3/uL (0.0-0.2); BASO % 0.7 % (0.0-1.0); HEMATOCRIT 39.8 % (42.0-52.0); HEMOGLOBIN 13.2 g/dl (13.5-17.5); LYMPH # 1.1 10^3/uL (1.5-5.0); LYMPH % 6.8 % (24.0-44.0); MEAN CORPUSCULAR HEMOGLOBIN 29.2 pg (27.0-33.0); MEAN CORPUSCULAR HGB CONC 33.2 g/dl (32.0-36.5); MEAN CORPUSCULAR VOLUME 88.1 fl (80.0-96.0); MONO # 0.9 10^3/uL (0.0-0.8); MONO % 5.7 % (0.0-5.0); NEUTROPHILS # 13.2 10^3/uL (1.5-8.5); NEUTROPHILS % 80.8 % (36.0-66.0); PLATELET COUNT, AUTOMATED 412 10^3/uL (150-450); RED BLOOD COUNT 4.52 10^6/uL (4.30-6.10); WHITE BLOOD COUNT 16.3 10^3/uL (4.0-10.0)
[2020-08-26 08:55] LABS: D-DIMER QUANT 781.81 ng/ml (<500)
[2020-08-26 09:02] LABS: ALBUMIN 2.4 GM/DL (3.2-5.2); ALT/SGPT 70 U/L (12-78); BILIRUBIN,TOTAL 0.7 MG/DL (0.2-1.0); BLOOD UREA NITROGEN 26 MG/DL (7-18); CARBON DIOXIDE LEVEL 25 MEQ/L (21-32); CHLORIDE LEVEL 103 MEQ/L (98-107); CREATININE FOR GFR 0.79 MG/DL (0.70-1.30); GLOMERULAR FILTRATION RATE > 60.0 (>42); GLUCOSE, FASTING 187 MG/DL (70-100); POTASSIUM SERUM 4.5 MEQ/L (3.5-5.1); SODIUM LEVEL 137 MEQ/L (136-145); TOTAL PROTEIN 5.6 GM/DL (6.4-8.2)
[2020-08-26] MEDS: dexameTHASONE 4 MG/ML 1ML VIAL (J1100 PER 1MG) IV SCH ×2 (09:03→20:49)
[2020-08-26] MEDS: GABAPENTIN 300 MG CAP PO SCH ×2 (09:05→20:50)
[2020-08-26] MEDS: amLODIPine 10 MG TAB PO SCH (09:05)
[2020-08-26] MEDS: FERROUS SULFATE 325MG TAB PO SCH (09:06)
[2020-08-26] MEDS: PANTOPRAZOLE 40MG TAB (PROTONIX) PO SCH (09:06)
[2020-08-26] MEDS: ASCORBIC ACID 500 MG TAB PO SCH (09:06)
[2020-08-26] MEDS: ZINC SULFATE 220 MG CAP PO SCH (09:07)
[2020-08-26] MEDS: ESCITALOPRAM OXALATE 5MG TABLET (LEXAPRO) PO SCH (09:07)
[2020-08-26] MEDS: SENOKOT S TAB PO SCH ×2 (09:07→20:50)
[2020-08-26] MEDS: ASPIRIN 81 MG CHEW TABLET PEG SCH (09:07)
[2020-08-26] MEDS: atenoloL 25 MG TAB PO SCH (09:09)
[2020-08-26] MEDS: ENOXAPARIN 40MG/0.4ML SYRINGE (J1650 PER 10MG) SC SCH ×2 (09:09→20:50)
[2020-08-26] MEDS: cefTRIAXone SOD 1 GM in D5W MINI-BAG PLUS 50 ML IV SCH (14:18)
[2020-08-26] MEDS: SODIUM CHLORIDE 0.9% INJ 10 ML SYR IV SCH (15:28)
[2020-08-26] MEDS: NORTRIPTYLINE 25 MG CAP PO SCH (20:50)
[2020-08-26] MEDS: SIMVASTATIN 40 MG TAB PO SCH (20:50)
[2020-08-27 04:00] VITALS: BP 138/71
[2020-08-27] MEDS: SLF 3 ML SYR IV SCH ×3 (06:00→22:00)
[2020-08-27 07:07] LABS: HEMATOCRIT 40.7 % (42.0-52.0); HEMOGLOBIN 13.5 g/dl (13.5-17.5); MEAN CORPUSCULAR HEMOGLOBIN 29.9 pg (27.0-33.0); MEAN CORPUSCULAR HGB CONC 33.2 g/dl (32.0-36.5); PLATELET COUNT, AUTOMATED 435 10^3/uL (150-450); RED BLOOD COUNT 4.52 10^6/uL (4.30-6.10); WHITE BLOOD COUNT 23.6 10^3/uL (4.0-10.0)
[2020-08-27 07:47] LABS: ALBUMIN 2.5 GM/DL (3.2-5.2); ALT/SGPT 58 U/L (12-78); BILIRUBIN,TOTAL 0.6 MG/DL (0.2-1.0); BLOOD UREA NITROGEN 27 MG/DL (7-18); CARBON DIOXIDE LEVEL 27 MEQ/L (21-32); CHLORIDE LEVEL 103 MEQ/L (98-107); GLOMERULAR FILTRATION RATE > 60.0 (>42); GLUCOSE, FASTING 171 MG/DL (70-100); POTASSIUM SERUM 4.3 MEQ/L (3.5-5.1); SODIUM LEVEL 136 MEQ/L (136-145); TOTAL PROTEIN 5.7 GM/DL (6.4-8.2)
[2020-08-27 08:00] VITALS: BP 138/70
--- NOTE | 2020-08-27 08:21 | IPNPDOC ---
Subjective Date Seen The patient was seen on 08/27/20. Subjective Chief Complaint/HPI SUBJECTIVE: Pt continues to require vapotherm 40L 100% FIO2 and last night, he was maxed out on vapotherm and desatted 88%. He was instructed to prone and oxygenation went up to 98%. We will continue to prone >18h a day. Pt denies any fever, chills, abdominal pain, n/v/d. Markers continues to improve. PHYSICAL EXAMINATION: VITAL SIGNS: please see below General: lying in bed, comfortable; vapotherm set at 40L and FIO2 100% satting 99% HEENT: PERRLA, EOMI, sclerae appears mild jaundiced, no hearing loss Neck: supple, normal ROM, no JVD Respiratory: lungs CTAB, no wheeze, no rales, no crackles CVS: Sinus rhythm, normal S1, S2, no murmurs Abdomen: non distended and non tender on palpation, + BS, no guarding Extremities: no edema, pulses 2+ lower extr MSK: no joint deformities, normal ROM, left CVA tenderness to percussion Neuro: no focal neuro deficits, moving all 4 extremities, CN2-12 intact. Strength 4/5 in all 4 extremities. No nystagmus. Psych: calm, cooperative, AAO x 3 ASSESSMENT AND PLAN: 79-year-old with a history of hypertension, remote history of melanoma, bladder cancer, anxiety, & GERD who was diagnosed with Covid 19 (08/17) at [facility] and transferred to [facility] and admitted for presumed sepsis 2/2 to COVID 19. He was treated with IV rocephin azithromycin and transitioned to PO levoquin for 5 more days at time of discharge. He was given IV steroids and then transitioned PO prednisone for 5 days prior to discharge. This gentleman presents back to the ER for persistent hypoxia. He's maxed out on vapotherm last night and satted 88%. Proning did help increase his saturations back up to 98%. We will continue to prone >18 hours a day as patient tolerates. #Acute hypoxic respiratory failure 2/2 COVID-19 PNA - COVID positive on 08/17 - Blood cxs negative. Pending urine legionella and strep. Pneuo serologies - 40L Vapotherm 100% FIO2 satting 99%- will continue to wean as tolerated - Will continue proning as patient sats 98% with proning- prone >18h a day if tolerated - XR chest 08/25- minimal changes from 08/22 imaging - Inflammatory markers continues to improve - c/w decadron BID (day 4) - c/w rocephin (08/22-08/29); finished course of zithromax (08/22-) - c/w remdesivir (08/23- 09/03) - Encourage incentive spirometry/acapella use and to sit in chair to prevent atelectasis - C/w Vit C and zinc supplementation #Hypertension - C/w atenolol 25 daily, amlodipine 10 mg daily #Constipation -Resolved. BM on 08/26. Milk of mag PRN #Hyperlipidemia - C/w Simvastatin 40 qhs #Hx of Stage IIIB Melanoma & Bladder cancer - Follow-up with hematology oncology outpt #GERD - protonix 20 daily #Hx of Anxiety - C/w excitalopram 5 daily DVT PPX: Lovenox BID GI ppx: Protonix Diet: 2g Na Fluids: none Code status: Full Disposition: Prone >18h a day. COVID labs q2d (next labs due 08/28). Assessment /Plan Plan/VTE VTE Prophylaxis Ordered?: Yes VS, I&O, 24H, Fishbone Vital Signs/I&O Vital Signs Date Time Temp Pulse Resp B/P (MAP) Pulse Ox O2 Delivery O2 Flow Rate FiO2 08/27/20 04:00 97.8 78 26 138/71 (93) 99 HVNI-Vapotherm 40.0 100 I&O- Last 24 Hours up to 6 AM 08/27/20 06:00 Intake Total 120 ml Output Total 950 ml Balance -830 ml Laboratory Data 24H LABS Laboratory Tests 2 08/27/20 06:10: Nucleated Red Blood Cells % (auto) 0.0, Anion Gap 6L, Glomerular Filtration Rate > 60.0, Calcium Level 8.0L, Total Bilirubin 0.6, Aspartate Amino Transf (AST/SGOT) 24, Alanine Aminotransferase (ALT/SGPT) 58, Alkaline Phosphatase 65, Total Protein 5.7L, Albumin 2.5L, Albumin/Globulin Ratio 0.8 CBC/BMP Laboratory Tests 08/27/20 06:10 GME ATTESTATION GME ATTESTATION My faculty preceptor for this patient encounter was physically present during the encounter and was fully available. All aspects of the patient interview, examination, medical decision making process, and medical care plan development were reviewed and approved by the faculty preceptor. The faculty preceptor is aware and concurs with the plan as stated in the body of this note and will attest to such by his/her cosignature. ATTENDING NOTE I, Joe Braga MD, have independently examined this patient and performed my own physical exam, as well as reviewed the documentation and edited where necessary. I have discussed in detail with the resident / student the findings and plan of treatment as documented by the resident / student and edit ed their note. I agree with their findings and treatment plan and have edited their documentation. I will continue to follow the patient during this hospital stay. 79 yo M hx of HYTN, bladder, ca, anxiety, GERD, remote hx of melanoma, recently admitted for management of sepsis 2/2 covid-19 with presumed superimposed pneumonia, treated with abx and prednisone. Patient re-admitted for acute hypoxic respiratory failure, requiring high flow O2 supplementation. PROBLEMS: #COVID-19 Pneumonia: HF O2 vapotherm 30 LPM 80%.Dexamethasone 6 mg IV BID. Remdesivir 10 day course (EOT 08/31). Ceftriaxone (EOT 08/22), azithromycin (EOT 08/26). Incentive spirometry. DVT ppx BID. Proning. #HTN: c/w atenolol. Amlodipine #HLD: statin #GERD: ppi #Constiaption: mil of Mg prn. Had BM on 08/26. #Hx of melanoma Stage IIIB: follow up with derm/oncology as outpatient #Hx of bladder ca: f/u with urology and oncology outpatient #Anxity: escitalopram. Venecia Lebron DO Aug 27, 2020 08:21 JOE BRAGA MD Aug 27, 2020 16:51
[2020-08-27] MEDS: SENOKOT S TAB PO SCH ×2 (09:07→20:35)
[2020-08-27] MEDS: GABAPENTIN 300 MG CAP PO SCH ×2 (09:08→20:35)
[2020-08-27] MEDS: ESCITALOPRAM OXALATE 5MG TABLET (LEXAPRO) PO SCH (09:08)
[2020-08-27] MEDS: ZINC SULFATE 220 MG CAP PO SCH (09:08)
[2020-08-27] MEDS: FERROUS SULFATE 325MG TAB PO SCH (09:08)
[2020-08-27] MEDS: ASPIRIN 81 MG CHEW TABLET PEG SCH (09:08)
[2020-08-27] MEDS: ASCORBIC ACID 500 MG TAB PO SCH (09:08)
[2020-08-27] MEDS: dexameTHASONE 4 MG/ML 1ML VIAL (J1100 PER 1MG) IV SCH ×2 (09:09→20:35)
[2020-08-27] MEDS: PANTOPRAZOLE 40MG TAB (PROTONIX) PO SCH (09:09)
[2020-08-27] MEDS: ENOXAPARIN 40MG/0.4ML SYRINGE (J1650 PER 10MG) SC SCH ×2 (09:13→20:35)
[2020-08-27] MEDS: atenoloL 25 MG TAB PO SCH (09:13)
[2020-08-27] MEDS: amLODIPine 10 MG TAB PO SCH (09:13)
[2020-08-27] MEDS: ACETAMINOPHEN TAB 650MG DOSE (2X325MG) PO PRN (09:16)
[2020-08-27 12:00] VITALS: BP 138/69
[2020-08-27] MEDS: cefTRIAXone SOD 1 GM in D5W MINI-BAG PLUS 50 ML IV SCH (13:42)
[2020-08-27] MEDS: SODIUM CHLORIDE 0.9% INJ 10 ML SYR IV SCH (15:02)
[2020-08-27 15:53] VITALS: BP 154/74
[2020-08-27 19:47] VITALS: BP 144/76
[2020-08-27] MEDS: NORTRIPTYLINE 25 MG CAP PO SCH (20:35)
[2020-08-27] MEDS: SIMVASTATIN 40 MG TAB PO SCH (20:35)
[2020-08-28] VITALS: BP 133/72
[2020-08-28 04:00] VITALS: BP 146/70
[2020-08-28] MEDS: SLF 3 ML SYR IV SCH ×3 (05:03→20:26)
[2020-08-28 08:00] VITALS: BP 126/61
[2020-08-28] MEDS: GABAPENTIN 300 MG CAP PO SCH ×2 (08:04→20:25)
[2020-08-28] MEDS: ASPIRIN 81 MG CHEW TABLET PEG SCH (08:04)
[2020-08-28] MEDS: PANTOPRAZOLE 40MG TAB (PROTONIX) PO SCH (08:04)
[2020-08-28] MEDS: ZINC SULFATE 220 MG CAP PO SCH (08:04)
[2020-08-28] MEDS: ASCORBIC ACID 500 MG TAB PO SCH (08:05)
[2020-08-28] MEDS: ESCITALOPRAM OXALATE 5MG TABLET (LEXAPRO) PO SCH (08:05)
[2020-08-28] MEDS: amLODIPine 10 MG TAB PO SCH (08:05)
[2020-08-28] MEDS: SENOKOT S TAB PO SCH ×2 (08:05→20:25)
[2020-08-28] MEDS: FERROUS SULFATE 325MG TAB PO SCH (08:05)
[2020-08-28] MEDS: dexameTHASONE 4 MG/ML 1ML VIAL (J1100 PER 1MG) IV SCH ×2 (08:06→20:25)
[2020-08-28] MEDS: atenoloL 25 MG TAB PO SCH (08:06)
[2020-08-28] MEDS: ENOXAPARIN 40MG/0.4ML SYRINGE (J1650 PER 10MG) SC SCH ×2 (08:06→20:26)
[2020-08-28 08:19] LABS: ALBUMIN 2.3 GM/DL (3.2-5.2); ALT/SGPT 46 U/L (12-78); BILIRUBIN,TOTAL 0.7 MG/DL (0.2-1.0); BLOOD UREA NITROGEN 23 MG/DL (7-18); CALCIUM LEVEL 8.1 MG/DL (8.8-10.2); CARBON DIOXIDE LEVEL 27 MEQ/L (21-32); CHLORIDE LEVEL 104 MEQ/L (98-107); GLOMERULAR FILTRATION RATE > 60.0 (>42); GLUCOSE, FASTING 172 MG/DL (70-100); POTASSIUM SERUM 4.6 MEQ/L (3.5-5.1); SODIUM LEVEL 138 MEQ/L (136-145); TOTAL PROTEIN 5.3 GM/DL (6.4-8.2)
[2020-08-28] MEDS ORDERED: MIRALAX *UNIT DOSE* 17GM PACKET PO PRN (09:15)
[2020-08-28] MEDS: MOM 30ML SUSPENSION UDC PO PRN (10:37)
[2020-08-28 11:44] VITALS: BP 154/73
--- NOTE | 2020-08-28 13:57 | IPNPDOC ---
Date Seen The patient was seen on 08/28/20. Progress Note SUBJECTIVE: Patient seen, examined at bedside this morning. Sitting upright in chair, comfortable Vapotherm 4 L/m 90% FiO2. Saturating 98%. Conversational answer questions appropriately. Denies chest pain, nausea, vomiting, diarrhea, subjective fevers or chills. No acute events overnight. Afebrile OBJECTIVE PHYSICAL EXAMINATION: VITAL SIGNS: please see below General: NAD, comfortable HEENT: PERRLA, EOMI, sclerae clear Neck: supple, normal ROM, no JVD Respiratory: Slightly improved aeration from yesterday. Mild crackles bilateral bases CVS: RRR, normal S1, S2, no murmurs Abdo: soft, no masses, no hepatosplenomegaly, BS+, no rebound tenderness Extremities: no edema, pulses 2+ MSK: no joint deformities, normal ROM Neuro: no focal neuro deficits, moving all 4 extremities, CN2-12 intact. Strength 5/5 in all 4 extremities. No nystagmus. Psych: calm, cooperative, AAO x 3 LABORATORY DATA, IMAGING STUDIES, MICROBIOLOGY: Please see below. DVT prophylaxis ordered?: lovenox 40 mg SC q12h ASSESSMENT AND PLAN: 79 yo M hx of HYTN, bladder, ca, anxiety, GERD, remote hx of melanoma, recently admitted for management of sepsis 2/2 covid-19 with presumed superimposed pneumonia, treated with abx and prednisone. Patient re- admitted for acute hypoxic respiratory failure, requiring high flow O2 supplementation. PROBLEMS: #COVID-19 Pneumonia: HF O2 vapotherm 40LPM 90% (up from 30 LPM 80%). Dexamethasone 6 mg IV BID. Remdesivir 10 day course (EOT 08/31). Ceftriaxone (EOT 08/22), azithromycin (EOT 08/26). Incentive spirometry. DVT ppx BID. Proning. #HTN: c/w atenolol. Amlodipine #HLD: statin #GERD: ppi #Constiaption: mil of Mg prn. Had BM on 08/26. #Hx of melanoma Stage IIIB: follow up with derm/oncology as outpatient #Hx of bladder ca: f/u with urology and oncology outpatient #Anxity: escitalopram. VS, I&O, 24H, Fishbone Vital Signs/I&O Vital Signs Date Time Temp Pulse Resp B/P (MAP) Pulse Ox O2 Delivery O2 Flow Rate FiO2 08/28/20 12:00 35.0 85 08/28/20 11:44 97.0 58 22 154/73 (100) 98 HVNI-Vapotherm I&O- Last 24 Hours up to 6 AM 08/28/20 06:00 Intake Total 600 ml Output Total 1200 ml Balance -600 ml Laboratory Data 24H LABS Laboratory Tests 2 08/28/20 07:34: Anion Gap 7L, Glomerular Filtration Rate > 60.0, Calcium Level 8.1L, Total Bilirubin 0.7, Aspartate Amino Transf (AST/SGOT) 18, Alanine Aminotransferase (ALT/SGPT) 46, Alkaline Phosphatase 64, Total Protein 5.3L, Albumin 2.3L, Albumin/Globulin Ratio 0.8 CBC/BMP Laboratory Tests 08/28/20 07:34 JOE NELSON MD Aug 28, 2020 13:57
[2020-08-28 14:34] LABS: LDH LACTATE DEHYDROGENASE 411 U/L (87-241)
[2020-08-28] MEDS: cefTRIAXone SOD 1 GM in D5W MINI-BAG PLUS 50 ML IV SCH (14:42)
[2020-08-28] MEDS: SODIUM CHLORIDE 0.9% INJ 10 ML SYR IV SCH (15:51)
[2020-08-28 15:52] VITALS: BP 136/70
[2020-08-28 20:00] VITALS: BP 137/81
[2020-08-28] MEDS: SIMVASTATIN 40 MG TAB PO SCH (20:25)
[2020-08-28] MEDS: NORTRIPTYLINE 25 MG CAP PO SCH (20:25)
[2020-08-28] MEDS ORDERED: ENOXAPARIN 100MG/1ML SYRINGE (J1650 PER 10MG) SC SCH (21:00)
[2020-08-29 01:00] VITALS: BP 128/71
[2020-08-29 04:00] VITALS: BP 131/61
[2020-08-29] MEDS: SLF 3 ML SYR IV SCH ×3 (05:11→20:24)
[2020-08-29 08:00] VITALS: BP 130/81
[2020-08-29 09:29] LABS: BASO # 0.1 10^3/uL (0.0-0.2); BASO % 0.2 % (0.0-1.0); HEMATOCRIT 40.6 % (42.0-52.0); HEMOGLOBIN 13.6 g/dl (13.5-17.5); LYMPH # 0.9 10^3/uL (1.5-5.0); LYMPH % 3.7 % (24.0-44.0); MEAN CORPUSCULAR HEMOGLOBIN 29.4 pg (27.0-33.0); MEAN CORPUSCULAR HGB CONC 33.5 g/dl (32.0-36.5); MEAN CORPUSCULAR VOLUME 87.9 fl (80.0-96.0); MONO # 1.2 10^3/uL (0.0-0.8); MONO % 5.1 % (0.0-5.0); NEUTROPHILS % 89.3 % (36.0-66.0); PLATELET COUNT, AUTOMATED 417 10^3/uL (150-450); RED BLOOD COUNT 4.62 10^6/uL (4.30-6.10); WHITE BLOOD COUNT 23.5 10^3/uL (4.0-10.0)
[2020-08-29] MEDS: PANTOPRAZOLE 40MG TAB (PROTONIX) PO SCH (09:39)
[2020-08-29] MEDS: ESCITALOPRAM OXALATE 5MG TABLET (LEXAPRO) PO SCH (09:39)
[2020-08-29] MEDS: SENOKOT S TAB PO SCH ×2 (09:39→20:23)
[2020-08-29] MEDS: ENOXAPARIN 40MG/0.4ML SYRINGE (J1650 PER 10MG) SC SCH ×2 (09:39→20:23)
[2020-08-29] MEDS: dexameTHASONE 4 MG/ML 1ML VIAL (J1100 PER 1MG) IV SCH ×2 (09:39→20:23)
[2020-08-29] MEDS: amLODIPine 10 MG TAB PO SCH (09:40)
[2020-08-29] MEDS: FERROUS SULFATE 325MG TAB PO SCH (09:40)
[2020-08-29] MEDS: ASCORBIC ACID 500 MG TAB PO SCH (09:40)
[2020-08-29] MEDS: GABAPENTIN 300 MG CAP PO SCH ×2 (09:40→20:23)
[2020-08-29] MEDS: ZINC SULFATE 220 MG CAP PO SCH (09:40)
[2020-08-29] MEDS: atenoloL 25 MG TAB PO SCH (09:40)
[2020-08-29] MEDS: ASPIRIN 81 MG CHEW TABLET PEG SCH (09:40)
[2020-08-29 09:50] LABS: ALBUMIN 2.4 GM/DL (3.2-5.2); ALT/SGPT 43 U/L (12-78); BILIRUBIN,DIRECT 0.3 MG/DL (0.0-0.2); BILIRUBIN,TOTAL 0.9 MG/DL (0.2-1.0); BLOOD UREA NITROGEN 25 MG/DL (7-18); C REACTIVE PROTEIN QUANTITATIV 2.29 MG/DL (0.00-0.30); CALCIUM LEVEL 8.1 MG/DL (8.8-10.2); CARBON DIOXIDE LEVEL 26 MEQ/L (21-32); CHLORIDE LEVEL 101 MEQ/L (98-107); CPK CREATINE PHOSPHOKINASE 37 U/L (39-308); CREATININE FOR GFR 0.72 MG/DL (0.70-1.30); FERRITIN 1243 NG/ML (26-388); GLOMERULAR FILTRATION RATE > 60.0 (>42); GLUCOSE, FASTING 200 MG/DL (70-100); LDH LACTATE DEHYDROGENASE 435 U/L (87-241); POTASSIUM SERUM 4.5 MEQ/L (3.5-5.1); SODIUM LEVEL 136 MEQ/L (136-145); TOTAL PROTEIN 5.5 GM/DL (6.4-8.2); TROPONIN I < 0.02 NG/ML (< 0.10)
[2020-08-29 09:53] LABS: INR 1.09; PROTHROMBIN TIME 14.3 SECONDS (12.5-14.3)
[2020-08-29 09:54] LABS: PARTIAL THROMBOPLASTIN TIME 29.3 SECONDS (24.2-38.5)
[2020-08-29 10:00] LABS: D-DIMER QUANT 694.33 ng/ml (<500)
--- NOTE | 2020-08-29 10:43 | IPNPDOC ---
Date Seen The patient was seen on 08/29/20. Progress Note SUBJECTIVE: Patient seen, examined at bedside this morning. Sitting upright in chair, comfortable. Oxygenation improved, vapotherm settings 35 LPM at FiO2 80%. C/o constipation, abdominal distension. has not had a BM in 3-4 days. Reports no abdominal pain. Denies prior hx of abdominal surgeries. OBJECTIVE PHYSICAL EXAMINATION: VITAL SIGNS: please see below General: NAD, comfortable HEENT: PERRLA, EOMI, sclerae clear Neck: supple, normal ROM, no JVD Respiratory: Slightly improved aeration from yesterday. Mild crackles bilateral bases CVS: RRR, normal S1, S2, no murmurs Abdo: distended, soft, non tender to palpation, hypoactive bowel sounds. Extremities: no edema, pulses 2+ MSK: no joint deformities, normal ROM Neuro: no focal neuro deficits, moving all 4 extremities, CN2-12 intact. Strength 5/5 in all 4 extremities. No nystagmus. Psych: calm, cooperative, AAO x 3 LABORATORY DATA, IMAGING STUDIES, MICROBIOLOGY: Please see below. DVT prophylaxis ordered?: lovenox 40 mg SC q12h ASSESSMENT AND PLAN: 79 yo M hx of HYTN, bladder, ca, anxiety, GERD, remote hx of melanoma, recently admitted for management of sepsis 2/2 covid-19 with presumed superimposed pneumonia, treated with abx and prednisone. Patient re- admitted for acute hypoxic respiratory failure, requiring high flow O2 supplementation. Continues to receive dexamethasone BID, as well as lovenox 0.5 mg/kg q12h. Concern for developing ileus, KUB ordered and NPO for now. PROBLEMS: #COVID-19 Pneumonia: HF O2 vapotherm 40LPM 90% (up from 30 LPM 80%).Dexamethasone 6 mg IV BID. Remdesivir 10 day course (EOT 08/31). C eftriaxone (EOT 08/22), azithromycin (EOT 08/26). Incentive spirometry. DVT ppx BID. Proning. Inflammatory markers improving, d dimer downtrending. #Abdo distension: suspect ileus. hypoactive BS. KUB ordered. NPO for now. Hold laxatives. check LA. NPO for now. #HTN: c/w atenolol. Amlodipine #HLD: statin #GERD: ppi #Constiaption: mil of Mg prn. Had BM on 08/26. #Hx of melanoma Stage IIIB: follow up with derm/oncology as outpatient #Hx of bladder ca: f/u with urology and oncology outpatient #Anxity: escitalopram. Dispo: needs ongoing PT conditioning and eval. Patient lives at home with grandson, and does not use any assisted mobility devices. Will likely require home services. VS, I&O, 24H, Fishbone Vital Signs/I&O Vital Signs Date Time Temp Pulse Resp B/P (MAP) Pulse Ox O2 Delivery O2 Flow Rate FiO2 08/29/20 09:40 79 130/81 08/29/20 08:00 97.2 21 92 HVNI-Vapotherm 35.0 80 I&O- Last 24 Hours up to 6 AM 08/29/20 06:00 Intake Total 1120 ml Output Total 1950 ml Balance -830 ml Laboratory Data 24H LABS Laboratory Tests 2 08/29/20 08:53: Immature Granulocyte % (Auto) 1.7, Neutrophils (%) (Auto) 89.3H, Lymphocytes (%) (Auto) 3.7L, Monocytes (%) (Auto) 5.1H, Eosinophils (%) (Auto) 0.0, Basophils (%) (Auto) 0.2, Neutrophils # (Auto) 21.0H, Lymphocytes # (Auto) 0.9L, Monocytes # (Auto) 1.2H, Eosinophils # (Auto) 0.0, Basophils # (Auto) 0.1, Nucleated Red Blood Cells % (auto) 0.0, Prothrombin Time 14.3H, Prothromb Time International Ratio 1.09, Activated Partial Thromboplast Time 29.3, Fibrinogen 485H, D-Dimer, Quantitative 694.33H, Anion Gap 9, Glomerular Filtration Rate > 60.0, Calcium Level 8.1L, Ferritin 1243H, Total Bilirubin 0.9, Direct Bilirubin 0.3H, Aspartate Amino Transf (AST/SGOT) 17, Alanine Aminotransferase (ALT/SGPT) 43, Alkaline Phosphatase 68, Lactate Dehydrogenase 435H, Total Creatine Kinase 37L, Troponin I < 0.02, C-Reactive Protein, Quantitative 2.29H, Total Protein 5.5L, Albumin 2.4L, Albumin/Globulin Ratio 0.8 CBC/BMP Laboratory Tests 08/29/20 08:53 JOE NELSON MD Aug 29, 2020 10:43
--- NOTE | 2020-08-29 11:37 | REP ---
INDICATION: abdominal distension COMPARISON: None. TECHNIQUE: Portable supine view of the abdomen and pelvis. FINDINGS: Bowel gas pattern is nonspecific and without obstruction or perforation. No organomegaly. No abnormal calcifications. Skeletal structures demonstrate age-related degenerative changes. IMPRESSION: Nonspecific bowel gas pattern.. <Electronically signed by Micah Wilkins > 08/29/20 3032
[2020-08-29 12:00] VITALS: BP 141/66
[2020-08-29] MEDS: NS 1,000 ML IV SCH ×2 (13:14→22:17)
[2020-08-29] MEDS: cefTRIAXone SOD 1 GM in D5W MINI-BAG PLUS 50 ML IV SCH (13:57)
[2020-08-29] MEDS: SODIUM CHLORIDE 0.9% INJ 10 ML SYR IV SCH (15:03)
[2020-08-29 16:00] VITALS: BP 146/71
[2020-08-29 20:00] VITALS: BP 140/73
[2020-08-29] MEDS: SIMVASTATIN 40 MG TAB PO SCH (20:23)
[2020-08-29] MEDS: NORTRIPTYLINE 25 MG CAP PO SCH (20:23)
[2020-08-30] VITALS (8 sets, daily range): BP systolic 125–147; BP diastolic 64–79
[2020-08-30] MEDS: SLF 3 ML SYR IV SCH ×3 (06:00→20:39)
[2020-08-30 06:47] LABS: ALBUMIN 2.2 GM/DL (3.2-5.2); ALT/SGPT 37 U/L (12-78); BILIRUBIN,TOTAL 0.9 MG/DL (0.2-1.0); BLOOD UREA NITROGEN 22 MG/DL (7-18); CALCIUM LEVEL 7.5 MG/DL (8.8-10.2); CARBON DIOXIDE LEVEL 27 MEQ/L (21-32); CHLORIDE LEVEL 104 MEQ/L (98-107); CREATININE FOR GFR 0.61 MG/DL (0.70-1.30); GLOMERULAR FILTRATION RATE > 60.0 (>42); GLUCOSE, FASTING 164 MG/DL (70-100); POTASSIUM SERUM 4.5 MEQ/L (3.5-5.1); SODIUM LEVEL 137 MEQ/L (136-145)
[2020-08-30] MEDS: ESCITALOPRAM OXALATE 5MG TABLET (LEXAPRO) PO SCH (08:55)
[2020-08-30] MEDS: atenoloL 25 MG TAB PO SCH (08:55)
[2020-08-30] MEDS: SENOKOT S TAB PO SCH ×2 (08:55→20:38)
[2020-08-30] MEDS: ZINC SULFATE 220 MG CAP PO SCH (08:55)
[2020-08-30] MEDS: ASPIRIN 81 MG CHEW TABLET PEG SCH (08:56)
[2020-08-30] MEDS: dexameTHASONE 4 MG/ML 1ML VIAL (J1100 PER 1MG) IV SCH ×2 (08:56→20:38)
[2020-08-30] MEDS: ASCORBIC ACID 500 MG TAB PO SCH (08:56)
[2020-08-30] MEDS: ENOXAPARIN 40MG/0.4ML SYRINGE (J1650 PER 10MG) SC SCH ×2 (08:56→20:39)
[2020-08-30] MEDS: PANTOPRAZOLE 40MG TAB (PROTONIX) PO SCH (08:57)
[2020-08-30] MEDS: amLODIPine 10 MG TAB PO SCH (08:57)
[2020-08-30] MEDS: GABAPENTIN 300 MG CAP PO SCH ×2 (08:57→20:38)
[2020-08-30] MEDS: FERROUS SULFATE 325MG TAB PO SCH (08:58)
[2020-08-30] MEDS: NS 1,000 ML IV SCH (08:58)
[2020-08-30] MEDS ORDERED: MIRALAX *UNIT DOSE* 17GM PACKET PO PRN (10:30)
[2020-08-30] MEDS: SODIUM CHLORIDE 0.9% INJ 10 ML SYR IV SCH (15:09)
--- NOTE | 2020-08-30 15:16 | IPNPDOC ---
Date Seen The patient was seen on 08/30/20. Progress Note SUBJECTIVE: Pranay was seen and examined this morning by the hospitalist service while sitting in a bedside chair. He continues to receive high flow oxygen via Vapotherm and is adjusting well to his current setting of 35L and 70% FiO2 with saturations running consistently in the low 90s. Approximately 12 hours ago, his FiO2 was decreased from 80% to the current 70%. He denies any significant increased work of breathing at rest or general dyspnea at rest. He remained afebrile with no adverse events reported overnight. He is making an effort to get out of bed and move around his room as frequently as he can. He continues to report some abdominal bloating and still has not had a bowel movement since 08/26. He denies any fever, chills, chest pain, nausea, or vomiting. OBJECTIVE PHYSICAL EXAMINATION: VITAL SIGNS: Please see below. GENERAL: Pleasant, engaging elderly male, seated upright in bedside chair. Wearing Vapotherm high flow oxygen. Alert and oriented 3. HEENT: Normocephalic, atraumatic. Noninjected, anicteric sclera. CARDIOVASCULAR: Very distant heart sounds with regular rate and rhythm. S1, S2. Difficult to discern for murmurs or rubs, with background noise from Vapotherm and baseline dyspnea heart sounds. RESPIRATORY: Diminished breath sounds bilaterally with decreased tidal volume. No significant wheezing or rhonchi appreciated with symmetric chest expansion. Speaking full sentences and breathing with the assistance of Vapotherm high flow oxygen (settings: 35 L, 70% FiO2). ABDOMINAL: Soft with moderate bloating appreciated across the mid to lower aspe ct of the abdomen. Nontender. No rigidity. Hypoactive bowel sounds. No significant hepatomegaly appreciated. EXTREMITIES: Bilateral lower extremities free of edema. 2+ radial pulses bilaterally NEUROLOGICAL: Awake, alert and oriented 3. No focal neurologic deficits appreciated. Non-dysarthric speech. PSYCHOLOGICAL: Mood and affect appear appropriate LABORATORY DATA, IMAGING STUDIES, MICROBIOLOGY: Please see below. ASSESSMENT AND PLAN: This is a 79yo male w/ notable h/o HTN, bladder ca, remote melanoma, HLD, GERD, and anxiety who was admitted on 08/22/20 with chief diagnosis of sepsis second jace to COVID-19 infection. Repeat chest x-ray on 08/25 showed worsening airspace disease and he was placed on ceftriaxone and azithromycin for superimposed bacterial infection. He's since completed a short course of antibiotics. He was readmitted due to acute hypoxic respiratory failure necessitating oxygen supplementation. He continues to receive dexamethasone 6 mg twice a day, as well as REM days of ear with scheduled ten-day dosing to conclude on 08/31. There was concern for development of ileus, as he has been constipated with no bowel movement since 08/26 and complaints of abdominal bloating. A KUB was ordered on 1227, which showed no obstruction and a nonspecific bowel gas pattern. #Covid-19 Pneumonia: He continues to be on high flow oxygen via Vapotherm, but has tolerated a decrease to 70% FiO2 over the past 12 hours with saturations remaining in the low 90s. His volume setting continues to be 35 L. Continue with the twice a day dosing of dexamethasone and finish the 10 day course of remdesivir. Also continue with twice a day dosing of Lovenox 40 mg. We've also spoken with the nursing staff in place. Nursing order for him to be prone to to improve aeration and subsequently oxygenation. Goal for prone inguinal be roughly 30 minutes every 3-4 hours as tolerated. In addition, we have added both magnesium and phosphorus to tomorrow's labs to assess for laboratory signs of respiratory muscle weakness in the setting of his acute hypoxic respiratory failure. We will also continue him on the supplementation both vitamin C and zinc. Of note, he is status post short course of Rocephin and azithromycin for potential superimposed bacterial infection as noted on repeat 08/25. Chest x-ray worsening of airspace disease. We will order a chest x-ray tomorrow to further follow-up and the status of his airspace disease in the setting of chronic virus pneumonia. #Abdominal bloating likely secondary to constipation: Pt was made npo yesterday and started with IV fluids as patient had been complaining of some bloating and had not had a bowel movement since 08/26. Results of the KUB study showed no intestinal obstruction with a nonspecific bowel gas pattern. As a result, his MiraLAX dosing was increased to twice a day as needed and he continues on the milk of magnesia. No signs of an acute abdomen on exam today and per nursing, he has been passing flatus. Encouraged to get out of bed and moved to chair more to increase overall metabolic activity and get bowels moving.. He did have a good session this morning with physical therapy. Switch to a soft diet for the time being and encouraged to maintain adequate hydration. #Hypertension: Pressures have remained relatively well controlled over the past day or so. Continue with the amlodipine (10 mg daily) and atenolol (25 mg daily) dosing. #GERD: Continue with Protonix 20 mg daily #Hyperlipidemia: Continue with home 40 mg simvastatin every night #Remote history of stage IIIB melanoma: Patient is to follow-up with both dermatology and oncology as needed on an outpatient basis #History of bladder cancer: Patient is to follow-up with both urology and, as similarly stated above with melanoma, to follow-up with oncology as outpatient. #History of anxiety: Patient is to continue with his home 5 mg dosing of daily escitalopram. #DVT prophylaxis: Continue with 40 mg twice a day subcutaneous Lovenox dosing Disposition: Pending continued improvement of his acute hypoxic respiratory f ailure and decreased need for supplemental oxygen. Also, per physical therapy, patient will need home services upon discharge as he lives with his grandson. VS, I&O, 24H, Fishbone Vital Signs/I&O Vital Signs Date Time Temp Pulse Resp B/P (MAP) Pulse Ox O2 Delivery O2 Flow Rate FiO2 08/30/20 12:14 137/64 (88) 08/30/20 12:00 97.8 63 20 93 HVNI-Vapotherm 35.0 70 I&O- Last 24 Hours up to 6 AM 08/30/20 06:00 Intake Total 1575 ml Output Total 2925 ml Balance -1350 ml Laboratory Data 24H LABS Laboratory Tests 2 08/29/20 17:02: Lactic Acid Followup at 4 Hours 1.9 08/30/20 05:29: Anion Gap 6L, Glomerular Filtration Rate > 60.0, Calcium Level 7.5L, Total Bilirubin 0.9, Aspartate Amino Transf (AST/SGOT) 17, Alanine Aminotransferase (ALT/SGPT) 37, Alkaline Phosphatase 60, Total Protein 5.0L, Albumin 2.2L, Alb umin/Globulin Ratio 0.8 CBC/BMP Laboratory Tests 08/30/20 05:29 FREDO DUQUE D.O. Aug 30, 2020 15:15
[2020-08-30] MEDS: MOM 30ML SUSPENSION UDC PO PRN (17:03)
[2020-08-30] MEDS ORDERED: BISACODYL 10 MG SUPP PR PRN (18:30)
[2020-08-30] MEDS: NORTRIPTYLINE 25 MG CAP PO SCH (20:38)
[2020-08-30] MEDS: SIMVASTATIN 40 MG TAB PO SCH (20:38)
[2020-08-31 04:00] VITALS: BP 133/67
[2020-08-31] MEDS: SLF 3 ML SYR IV SCH ×3 (05:59→21:12)
[2020-08-31 07:07] LABS: BASO % 0.2 % (0.0-1.0); HEMATOCRIT 38.5 % (42.0-52.0); HEMOGLOBIN 12.7 g/dl (13.5-17.5); LYMPH # 0.6 10^3/uL (1.5-5.0); LYMPH % 3.5 % (24.0-44.0); MEAN CORPUSCULAR HEMOGLOBIN 29.3 pg (27.0-33.0); MEAN CORPUSCULAR VOLUME 88.7 fl (80.0-96.0); MONO # 1.2 10^3/uL (0.0-0.8); MONO % 6.9 % (0.0-5.0); NEUTROPHILS # 15.3 10^3/uL (1.5-8.5); NEUTROPHILS % 88.4 % (36.0-66.0); PLATELET COUNT, AUTOMATED 365 10^3/uL (150-450); RED BLOOD COUNT 4.34 10^6/uL (4.30-6.10); WHITE BLOOD COUNT 17.4 10^3/uL (4.0-10.0)
[2020-08-31 07:49] LABS: ALBUMIN 2.3 GM/DL (3.2-5.2); ALT/SGPT 35 U/L (12-78); BLOOD UREA NITROGEN 21 MG/DL (7-18); CALCIUM LEVEL 7.8 MG/DL (8.8-10.2); CARBON DIOXIDE LEVEL 27 MEQ/L (21-32); CHLORIDE LEVEL 101 MEQ/L (98-107); CREATININE FOR GFR 0.64 MG/DL (0.70-1.30); GLOMERULAR FILTRATION RATE > 60.0 (>42); GLUCOSE, FASTING 177 MG/DL (70-100); MAGNESIUM LEVEL 2.3 MG/DL (1.8-2.4); PHOSPHORUS LEVEL 3.2 MG/DL (2.5-4.9); POTASSIUM SERUM 4.4 MEQ/L (3.5-5.1); SODIUM LEVEL 133 MEQ/L (136-145)
[2020-08-31 08:00] VITALS: BP 138/81
--- NOTE | 2020-08-31 08:21 | REP ---
INDICATION: for comparison assessment in covid-pna pt COMPARISON: 08/25/2020 TECHNIQUE: Portable AP view of the chest FINDINGS: Chronic interstitial changes with superimposed bilateral infiltrates similar to prior examination. Mediastinum and cardiac silhouette are stable. No obvious effusion or pneumothorax. IMPRESSION: Bilateral opacities similar to prior examination. <Electronically signed by Micah Wilkins > 08/31/20 0816
[2020-08-31] MEDS: PANTOPRAZOLE 20 MG TAB PO SCH (09:00)
[2020-08-31] MEDS: ENOXAPARIN 40MG/0.4ML SYRINGE (J1650 PER 10MG) SC SCH ×2 (10:07→20:02)
[2020-08-31] MEDS: ASPIRIN 81 MG CHEW TABLET PEG SCH (10:08)
[2020-08-31] MEDS: GABAPENTIN 300 MG CAP PO SCH ×2 (10:08→20:02)
[2020-08-31] MEDS: ZINC SULFATE 220 MG CAP PO SCH (10:08)
[2020-08-31] MEDS: ESCITALOPRAM OXALATE 5MG TABLET (LEXAPRO) PO SCH (10:08)
[2020-08-31] MEDS: SENOKOT S TAB PO SCH ×2 (10:08→20:02)
[2020-08-31] MEDS: ASCORBIC ACID 500 MG TAB PO SCH (10:08)
[2020-08-31] MEDS: FERROUS SULFATE 325MG TAB PO SCH (10:09)
[2020-08-31] MEDS: amLODIPine 10 MG TAB PO SCH (10:09)
[2020-08-31] MEDS: dexameTHASONE 4 MG/ML 1ML VIAL (J1100 PER 1MG) IV SCH ×2 (10:09→20:02)
[2020-08-31] MEDS: atenoloL 25 MG TAB PO SCH (10:09)
[2020-08-31 12:00] VITALS: BP 152/72
--- NOTE | 2020-08-31 13:46 | IPNPDOC ---
Date Seen The patient was seen on 08/31/20. Progress Note SUBJECTIVE: Pranay was seen and examined by the hospitalist service this morning while lying upright in bed. He reports doing much better as it relates to his abdominal bloating, as he was finally able to have a bowel movement yesterday evening - - the first in more than 4 days. Overall, he continues to feel somewhat weak but is making a concerted effort to consistently use his incentive spirometer and get out of bed and ambulate to a nearby chair a few times each day. Yesterday and throughout the overnight, he continued on Vapotherm with settings of 35 L and 70% FiO2 with oxygen saturations in the low 90s ranging from 91 and 93%. This morning, his FiO2 was decreased to 50%, yet his volume was increased to 40 L, and he was saturating at 93%. He denies any current or overnight fever, chi lls, chest pain, nausea, or vomiting. OBJECTIVE PHYSICAL EXAMINATION: VITAL SIGNS: Please see below. GENERAL: Pleasant elderly male seated upright in bed. Wearing Vapotherm high flow oxygen. Alert and oriented 3. HEENT: Normocephalic, atraumatic. Noninjected, anicteric sclera. CARDIOVASCULAR: Distant heart sounds with regular rate and rhythm. Normal S1, S2. Difficult to discern for murmurs or rubs due to distant heart sounds and background noise of Vapotherm. RESPIRATORY: Continues on Vapotherm high flow oxygen with current settings of 40 L and 50% FiO2 with 93% oxygen saturation. Diminished breath sounds bilaterally with decreased tidal volume. No significant wheezing or rhonchi appreciated. Symmetric chest expansion. ABDOMINAL: Soft with decrease in appreciated abdominal bloating from yesterday's exam. Nontender. No rigidity. Hypoactive bowel sounds. EXTREMITIES: Bilateral lower extremities free of edema. 2+ radial pulses bilaterally NEUROLOGICAL: Awake, alert and oriented 3. No focal neurologic deficits appreciated. Non-dysarthric speech. PSYCHOLOGICAL: Mood and affect appear appropriate LABORATORY DATA, IMAGING STUDIES, MICROBIOLOGY: Please see below. ASSESSMENT AND PLAN: This is a 79yo male w/ notable h/o HTN, bladder ca, remote melanoma, HLD, GERD, and anxiety who was admitted on 08/22/20 with chief diagnosis of sepsis secondary to COVID-19 infection. He originally presented to [facility] on 08/17, tested positive for Covid 19 and diagnosed with a UTI, then was subsequently transferred to [facility] for higher level of care. He was discharged on 08/20 with outpatient scripts for oral prednisone and levofloxacin. He returned to [facility] on 08/22 with complaints of continued dyspnea on exertion and was found to have oxygen saturations between 8182 percent on 4 L nasal cannula oxygen. He also had a serum potassium 2.9 and the providers at [facility] again requested transfer to [facility] for high- level care. Once back at [facility], a repeat chest x-ray on 08/25 showed worsening airspace disease and he was placed on ceftriaxone and azithromycin for superimposed bacterial infection. #Covid-19 Pneumonia: Pranay continues on high flow oxygen via Vapotherm, with settings of 50% FiO2 and 40 L with saturation of 93% at time of our exam today. Our ultimate goal is to continue decreasing his Vapotherm demands, and as such, we spoke with nursing today to decrease to 35 L. -Continue with the twice a day dosing of dexamethasone -He is status post Remdesivir dosing from 08/23-08/31. -continue with twice a day dosing of Lovenox 40 mg. -Spoke with nursing today to continue proning for 30 minutes to an hour every 3- 4 hours, as well as encouraging out of bed to chair at least 3-4 times per day. -Mag and phosphorus orders from yesterday to assess for possible muscle weakness in the setting of hypoxia and tachypnea returned today with both within normal limits. -Continue with vitamin C and zinc supplementation. -He is s/p a short course of Rocephin and azithromycin for potential superimposed bacterial infection after 08/25 repeat chest x-ray showed worsening of airspace disease. -Continue with incentive spirometry -Should he experience a clinical decline in his respiratory status/require an increase in vapotherm settings, we'll look into possibly starting a monoclonal antibody #Abdominal bloating likely secondary to constipation, improved -After Dulcolax suppository ordered last night, patient had a bowel movement and feels much better with less bloating and associated abdominal pressure -Results of a 08/29 KUB study showed no intestinal obstruction with a nonspecific bowel gas pattern. -Continue with MiraLAX and milk of magnesia. -Continue to encourage out of bed 3-4 times a day #Hypertension: Pressures have remained relatively well controlled over the past few days. Continue with the amlodipine (10 mg daily) and atenolol (25 mg daily) dosing. #GERD: Continue with Protonix 20 mg daily #Hyperlipidemia: Continue with home 40 mg simvastatin every night #Remote history of stage IIIB melanoma: Patient is to follow-up with both dermatology and oncology as needed on an outpatient basis #History of bladder cancer: Patient is to follow-up with both urology and, as similarly stated above with melanoma, to follow-up with oncology as outpatient. #History of anxiety: Patient is to continue with his home 5 mg dosing of daily escitalopram. #DVT prophylaxis: Continue with 40 mg twice a day subcutaneous Lovenox dosing Disposition: Pending continued improvement of his acute hypoxic respiratory failure and decreased need for supplemental oxygen. Also, per physical therapy, patient will need home services upon discharge as he lives with his grandson. VS, I&O, 24H, Fishbone Vital Signs/I&O Vital Signs Date Time Temp Pulse Resp B/P (MAP) Pulse Ox O2 Delivery O2 Flow Rate FiO2 08/31/20 12:00 97.5 65 20 152/72 (98) 93 HVNI-Vapotherm 35.0 08/31/20 08:24 60 I&O- Last 24 Hours up to 6 AM 08/31/20 06:00 Intake Total 1250 ml Output Total 1900 ml Balance -650 ml Laboratory Data 24H LABS Laboratory Tests 2 08/31/20 06:29: Immature Granulocyte % (Auto) 1.0, Neutrophils (%) (Auto) 88.4H, Lymphocytes (%) (Auto) 3.5L, Monocytes (%) (Auto) 6.9H, Eosinophils (%) (Auto) 0.0, Basophils (%) (Auto) 0.2, Neutrophils # (Auto) 15.3H, Lymphocytes # (Auto) 0.6L, Monocytes # (Auto) 1.2H, Eosinophils # (Auto) 0.0, Basophils # (Auto) 0.0, Nucleated Red Blood Cells % (auto) 0.0, Anion Gap 5L, Glomerular Filtration Rate > 60.0, Calcium Level 7.8L, Phosphorus Level 3.2, Magnesium Level 2.3, Total Bilirubin 1.0, Aspartate Amino Transf (AST/SGOT) 14, Alanine Aminotransferase (ALT/SGPT) 35, Alkaline Phosphatase 58, Total Protein 5.0L, Albumin 2.3L, Albumin/Globulin Ratio 0.9 CBC/BMP Laboratory Tests 08/31/20 06:29 FREDO DUQUE D.O. Aug 31, 2020 13:46
[2020-08-31] MEDS: SODIUM CHLORIDE 0.9% INJ 10 ML SYR IV SCH (15:37)
[2020-08-31 15:58] VITALS: BP 132/73
[2020-08-31 20:00] VITALS: BP 135/68
[2020-08-31] MEDS: NORTRIPTYLINE 25 MG CAP PO SCH (20:02)
[2020-08-31] MEDS: SIMVASTATIN 40 MG TAB PO SCH (20:02)
[2020-09-01] VITALS (7 sets, daily range): BP systolic 123–147; BP diastolic 66–71; O2SAT 93
[2020-09-01] MEDS: SLF 3 ML SYR IV SCH ×3 (06:00→22:00)
[2020-09-01 07:06] LABS: BASO % 0.1 % (0.0-1.0); HEMATOCRIT 39.4 % (42.0-52.0); HEMOGLOBIN 13.2 g/dl (13.5-17.5); LYMPH # 0.6 10^3/uL (1.5-5.0); LYMPH % 3.7 % (24.0-44.0); MEAN CORPUSCULAR HEMOGLOBIN 29.8 pg (27.0-33.0); MEAN CORPUSCULAR HGB CONC 33.5 g/dl (32.0-36.5); MEAN CORPUSCULAR VOLUME 88.9 fl (80.0-96.0); MONO # 1.1 10^3/uL (0.0-0.8); NEUTROPHILS # 14.2 10^3/uL (1.5-8.5); NEUTROPHILS % 88.3 % (36.0-66.0); PLATELET COUNT, AUTOMATED 345 10^3/uL (150-450); RED BLOOD COUNT 4.43 10^6/uL (4.30-6.10); WHITE BLOOD COUNT 16.1 10^3/uL (4.0-10.0)
[2020-09-01 07:24] LABS: INR 1.1; PROTHROMBIN TIME 14.4 SECONDS (12.5-14.3)
[2020-09-01 07:25] LABS: PARTIAL THROMBOPLASTIN TIME 30.6 SECONDS (24.2-38.5)
[2020-09-01 07:36] LABS: ALBUMIN 2.3 GM/DL (3.2-5.2); ALT/SGPT 34 U/L (12-78); BILIRUBIN,TOTAL 0.9 MG/DL (0.2-1.0); BLOOD UREA NITROGEN 22 MG/DL (7-18); C REACTIVE PROTEIN QUANTITATIV 0.48 MG/DL (0.00-0.30); CALCIUM LEVEL 7.6 MG/DL (8.8-10.2); CARBON DIOXIDE LEVEL 28 MEQ/L (21-32); CHLORIDE LEVEL 102 MEQ/L (98-107); CREATININE FOR GFR 0.56 MG/DL (0.70-1.30); GLOMERULAR FILTRATION RATE > 60.0 (>42); GLUCOSE, FASTING 167 MG/DL (70-100); MAGNESIUM LEVEL 2.3 MG/DL (1.8-2.4); POTASSIUM SERUM 4.3 MEQ/L (3.5-5.1); SODIUM LEVEL 134 MEQ/L (136-145); TOTAL PROTEIN 4.8 GM/DL (6.4-8.2)
[2020-09-01] MEDS: SENOKOT S TAB PO SCH ×2 (10:37→20:34)
[2020-09-01] MEDS: ASCORBIC ACID 500 MG TAB PO SCH (10:37)
[2020-09-01] MEDS: ESCITALOPRAM OXALATE 5MG TABLET (LEXAPRO) PO SCH (10:37)
[2020-09-01] MEDS: ZINC SULFATE 220 MG CAP PO SCH (10:37)
[2020-09-01] MEDS: GABAPENTIN 300 MG CAP PO SCH ×2 (10:37→20:33)
[2020-09-01] MEDS: ASPIRIN 81 MG CHEW TABLET PEG SCH (10:37)
[2020-09-01] MEDS: amLODIPine 10 MG TAB PO SCH (10:38)
[2020-09-01] MEDS: dexameTHASONE 4 MG/ML 1ML VIAL (J1100 PER 1MG) IV SCH ×2 (10:38→20:34)
[2020-09-01] MEDS: atenoloL 25 MG TAB PO SCH (10:38)
[2020-09-01] MEDS: FERROUS SULFATE 325MG TAB PO SCH (10:38)
[2020-09-01] MEDS: PANTOPRAZOLE 20 MG TAB PO SCH (10:38)
[2020-09-01] MEDS: ENOXAPARIN 40MG/0.4ML SYRINGE (J1650 PER 10MG) SC SCH ×2 (10:39→20:34)
--- NOTE | 2020-09-01 14:59 | IPNPDOC ---
Text Note Date of Service The patient was seen on 09/01/20. NOTE Pt was seen at bedside this am. Patient is requiring Vapotherm 40 L with 40% FIO2 and satting at 92%, he looks very comfortable today. Physical examination General: lying in bed, comfortable; on vapotherm HEENT: PERRLA, EOMI, sclerae appears mild jaundiced, no hearing loss Neck: supple, normal ROM, no JVD Respiratory: lungs CTAB, no wheeze, no rales, no crackles CVS: Sinus rhythm, normal S1, S2, no murmurs Abdomen: non distended and non tender on palpation, + BS, no guarding Extremities: no edema, pulses 2+ lower extr MSK: no joint deformities, normal ROM, left CVA tenderness to percussion Neuro: no focal neuro deficits, moving all 4 extremities, CN2-12 intact. S trength 4/5 in all 4 extremities. No nystagmus. Psych: calm, cooperative, AAO x 3 Assessment and plan This is a 79-year-old with a history of hypertension, remote history of melanoma, bladder cancer, anxiety, & GERD who was diagnosed with Covid 19 (08/17) at [facility] and transferred to [facility] and admitted for sepsis 2/2 to COVID 19. He was treated with IV rocephin azithromycin and transitioned to PO levaquin for 5 more days at time of discharge. He was given IV steroids and then transitioned PO prednosone for 5 days prior to discharge. This gentleman presents back to the ER for persistent hypoxia. He's admitted to the hospitalist service and had a long course. His Covid 19 interstitial pneumonia and hypoxic respiratory failure worsened. He finished the 10 day course of remdesevir, and finished the IV antibiotics for any superimposed pneumonia as well. He has been improving, now requiring 40 L and 40 wasn't FiO2 on Vapotherm. 1. COVID 19 PNA: He is saturating 92% on 40 L and 40 FiO2 of Vapotherm. We'll try to deescalated as tolerated. Remdesevir finished for a total of 10 days dexamethasone on 6 mg twice a day. Continue Lovenox 40 twice a day. Continue to monitor. Vitamin C and zinc. Incentive spirometry, out of bed to chair 4 times a day. 2. Hypertension: Continue his amlodipine and atenolol. Blood pressure in acceptable range 3. Hyperlipidemia. Continue Simvastatin 4. Hx of Stage IIIB Melanoma & Bladder cancer: Follow-up with hematology oncology outpt 5. GERD: protonix 6. Hx of Anxiety : C/w Citalopram DVT ppx: Lovenox 40 BID Out of bed to chair, incentive spirometer. Disposition: Unknown at this time VS,Fishbone, I+O VS, Fishbone, I+O Laboratory Tests 09/01/20 06:43 Vital Signs Date Time Temp Pulse Resp B/P (MAP) Pulse Ox O2 Delivery O2 Flow Rate FiO2 09/01/20 12:00 96.5 66 20 123/71 (88) 91 HVNI-Vapotherm 40.0 40 I&O- Last 24 Hours up to 6 AM 09/01/20 06:00 Intake Total 540 ml Output Total 1925 ml Balance -1385 ml OLGA HAGAN MD Sep 01, 2020 14:59
[2020-09-01] MEDS: SIMVASTATIN 40 MG TAB PO SCH (20:34)
[2020-09-01] MEDS: NORTRIPTYLINE 25 MG CAP PO SCH (20:34)
[2020-09-02] VITALS (7 sets, daily range): BP systolic 112–158; BP diastolic 62–80
[2020-09-02] MEDS: SLF 3 ML SYR IV SCH ×3 (06:00→19:48)
[2020-09-02 09:33] LABS: HEMATOCRIT 39.7 % (42.0-52.0); HEMOGLOBIN 13.5 g/dl (13.5-17.5); MEAN CORPUSCULAR HEMOGLOBIN 30.3 pg (27.0-33.0); MEAN CORPUSCULAR VOLUME 89.2 fl (80.0-96.0); PLATELET COUNT, AUTOMATED 322 10^3/uL (150-450); RED BLOOD COUNT 4.45 10^6/uL (4.30-6.10); WHITE BLOOD COUNT 16.4 10^3/uL (4.0-10.0)
[2020-09-02 09:36] LABS: BLOOD UREA NITROGEN 20 MG/DL (7-18); CALCIUM LEVEL 7.5 MG/DL (8.8-10.2); CARBON DIOXIDE LEVEL 28 MEQ/L (21-32); CHLORIDE LEVEL 102 MEQ/L (98-107); CREATININE FOR GFR 0.51 MG/DL (0.70-1.30); GLOMERULAR FILTRATION RATE > 60.0 (>42); GLUCOSE, FASTING 145 MG/DL (70-100); POTASSIUM SERUM 4.2 MEQ/L (3.5-5.1); SODIUM LEVEL 135 MEQ/L (136-145)
[2020-09-02] MEDS: dexameTHASONE 4 MG/ML 1ML VIAL (J1100 PER 1MG) IV SCH ×2 (09:56→19:48)
[2020-09-02] MEDS: ENOXAPARIN 40MG/0.4ML SYRINGE (J1650 PER 10MG) SC SCH (09:56)
[2020-09-02] MEDS: ASCORBIC ACID 500 MG TAB PO SCH (09:56)
[2020-09-02] MEDS: ASPIRIN 81 MG CHEW TABLET PEG SCH (09:57)
[2020-09-02] MEDS: PANTOPRAZOLE 20 MG TAB PO SCH (09:58)
[2020-09-02] MEDS: GABAPENTIN 300 MG CAP PO SCH ×2 (09:58→19:47)
[2020-09-02] MEDS: amLODIPine 10 MG TAB PO SCH (09:59)
[2020-09-02] MEDS: SENOKOT S TAB PO SCH ×2 (09:59→19:46)
[2020-09-02] MEDS: FERROUS SULFATE 325MG TAB PO SCH (09:59)
[2020-09-02] MEDS: ZINC SULFATE 220 MG CAP PO SCH (09:59)
[2020-09-02] MEDS: ESCITALOPRAM OXALATE 5MG TABLET (LEXAPRO) PO SCH (09:59)
[2020-09-02] MEDS: atenoloL 25 MG TAB PO SCH (09:59)
--- NOTE | 2020-09-02 13:03 | IPNPDOC ---
Text Note Date of Service The patient was seen on 09/02/20. NOTE Pt was seen at bedside this am. Patient is requiring Vapotherm 15 L with 40% F IO2 and satting at 94%, he looks very comfortable today. Physical examination General: lying in bed, comfortable; on vapotherm HEENT: PERRLA, EOMI, sclerae appears mild jaundiced, no hearing loss Neck: supple, normal ROM, no JVD Respiratory: lungs CTAB, no wheeze, no rales, no crackles CVS: Sinus rhythm, normal S1, S2, no murmurs Abdomen: non distended and non tender on palpation, + BS, no guarding Extremities: no edema, pulses 2+ lower extr MSK: no joint deformities, normal ROM, left CVA tenderness to percussion Neuro: no focal neuro deficits, moving all 4 extremities, CN2-12 intact. Str ength 4/5 in all 4 extremities. No nystagmus. Psych: calm, cooperative, AAO x 3 Assessment and plan This is a 79-year-old with a history of hypertension, remote history of melanoma, bladder cancer, anxiety, & GERD who was diagnosed with Covid 19 (08/17) at [facility] and transferred to [facility] and admitted for sepsis 2/2 to COVID 19. He was treated with IV rocephin azithromycin and transitioned to PO levaquin for 5 more days at time of discharge. He was given IV steroids and then transitioned PO prednosone for 5 days prior to discharge. This gentleman presents back to the ER for persistent hypoxia and was admitted to the hospitalist service and had a long course. His Covid 19 interstitial pneumonia and hypoxic respiratory failure worsened. He finished the 10 day course of remdesevir, and finished the IV antibiotics for any superimposed pneumonia as well. He has been improving, now requiring 15 L and 40 wasn't FiO2 on Vapotherm, which is a significant improvement for him. 1. COVID 19 PNA: He is saturating 92% on 15 L and 40 FiO2 of Vapotherm. We'll try to deescalated as tolerated. Remdesevir finished for a total of 10 days dexamethasone on 6 mg twice a day. Continue Lovenox 40 twice a day. Continue to monitor. Vitamin C and zinc. Incentive spirometry, out of bed to chair 4 times a day. 2. Hypertension: Continue his amlodipine and atenolol. Blood pressure in acceptable range 3. Hyperlipidemia. Continue Simvastatin 4. Hx of Stage IIIB Melanoma & Bladder cancer: Follow-up with hematology oncology outpt 5. GERD: protonix 6. Hx of Anxiety : C/w Citalopram DVT ppx: Lovenox 40 BID Out of bed to chair, incentive spirometer. Continue proning Disposition: Unknown at this time VS,Fishbone, I+O VS, Fishbone, I+O Laboratory Tests 09/02/20 08:13 Vital Signs Date Time Temp Pulse Resp B/P (MAP) Pulse Ox O2 Delivery O2 Flow Rate FiO2 09/02/20 09:59 76 112/62 09/02/20 08:00 97.6 19 93 HVNI-Vapotherm 20.0 40 I&O- Last 24 Hours up to 6 AM 09/02/20 06:00 Intake Total 440 ml Output Total 1325 ml Balance -885 ml OLGA HAGAN MD Sep 02, 2020 13:03
[2020-09-02] MEDS: SIMVASTATIN 40 MG TAB PO SCH (19:47)
[2020-09-02] MEDS: NORTRIPTYLINE 25 MG CAP PO SCH (19:47)
[2020-09-03] VITALS (8 sets, daily range): BP systolic 120–145; BP diastolic 63–88; O2SAT 95
[2020-09-03] MEDS: SLF 3 ML SYR IV SCH ×3 (05:31→20:10)
[2020-09-03 07:12] LABS: HEMATOCRIT 39.5 % (42.0-52.0); HEMOGLOBIN 13.3 g/dl (13.5-17.5); MEAN CORPUSCULAR HGB CONC 33.7 g/dl (32.0-36.5); MEAN CORPUSCULAR VOLUME 89.2 fl (80.0-96.0); PLATELET COUNT, AUTOMATED 304 10^3/uL (150-450); RED BLOOD COUNT 4.43 10^6/uL (4.30-6.10); WHITE BLOOD COUNT 16.5 10^3/uL (4.0-10.0)
[2020-09-03 07:38] LABS: D-DIMER QUANT 469.93 ng/ml (<500)
[2020-09-03 07:44] LABS: BLOOD UREA NITROGEN 21 MG/DL (7-18); CALCIUM LEVEL 7.7 MG/DL (8.8-10.2); CARBON DIOXIDE LEVEL 29 MEQ/L (21-32); CHLORIDE LEVEL 100 MEQ/L (98-107); CREATININE FOR GFR 0.59 MG/DL (0.70-1.30); FERRITIN 1762 NG/ML (26-388); GLOMERULAR FILTRATION RATE > 60.0 (>42); GLUCOSE, FASTING 174 MG/DL (70-100); MAGNESIUM LEVEL 2.1 MG/DL (1.8-2.4); POTASSIUM SERUM 4.3 MEQ/L (3.5-5.1); SODIUM LEVEL 135 MEQ/L (136-145)
[2020-09-03] MEDS: ZINC SULFATE 220 MG CAP PO SCH (09:56)
[2020-09-03] MEDS: ASPIRIN 81 MG CHEW TABLET PEG SCH (09:56)
[2020-09-03] MEDS: ESCITALOPRAM OXALATE 5MG TABLET (LEXAPRO) PO SCH (09:56)
[2020-09-03] MEDS: ASCORBIC ACID 500 MG TAB PO SCH (09:56)
[2020-09-03] MEDS: SENOKOT S TAB PO SCH ×2 (09:56→20:10)
[2020-09-03] MEDS: dexameTHASONE 4 MG/ML 1ML VIAL (J1100 PER 1MG) IV SCH (09:57)
[2020-09-03] MEDS: FERROUS SULFATE 325MG TAB PO SCH (09:57)
[2020-09-03] MEDS: GABAPENTIN 300 MG CAP PO SCH ×2 (09:57→20:11)
[2020-09-03] MEDS: PANTOPRAZOLE 20 MG TAB PO SCH (09:57)
[2020-09-03] MEDS: amLODIPine 10 MG TAB PO SCH (09:57)
[2020-09-03] MEDS: atenoloL 25 MG TAB PO SCH (09:58)
[2020-09-03] MEDS: ENOXAPARIN 40MG/0.4ML SYRINGE (J1650 PER 10MG) SC SCH (09:58)
--- NOTE | 2020-09-03 18:45 | IPNPDOC ---
Date Seen The patient was seen on 09/03/20. Progress Note SUBJECTIVE: Pranay was seen and examined this morning by the hospitalist service while lying upright in bed. He continues to do very well from a respiratory standpoint, continuing to wean down on his vapotherm settings. He currently is on 15 L with 40% FiO2 with a saturation of 93%. He appears quite comfortable with no accessory muscle use. He denies any pleuritic chest pain or cough. He continues to use his incentive spirometer consistently and is getting out of bed to his chair as much as possible. He also is continuing to participate with proning. He denies any fever, chills, night sweats. Currently, or overnight. He also denies any chest pain, palpitations, abdominal pain, nausea, or vomiting. He is eating and drinking without any issues. OBJECTIVE PHYSICAL EXAMINATION: VITAL SIGNS: Please see below. GENERAL: Pleasant elderly male lying upright in bed. Wearing Vapotherm high flow oxygen. Alert and oriented 3. HEENT: Normocephalic, atraumatic. Noninjected, anicteric sclera. CARDIOVASCULAR: Distant heart sounds with regular rate and rhythm. Normal S1, S2. Difficult to discern for murmurs or rubs due to background noise of Vapotherm in addition to the distant heart sounds. RESPIRATORY: Continues on Vapotherm high flow oxygen with current settings of 40 L and 15% FiO2 with 93% oxygen saturation. Diminished breath sounds bilaterally with decreased tidal volume, but no significant change from prior day's exam in this regard. No significant wheezing or rhonchi appreciated. Symmetric chest expansion. Speaking full sentences. BACK: Roughly 5-6 cm diagonal scar that appears to be well-healing over right scapula. ABDOMINAL: Soft, nontender, nondistended Nontender. No rigidity. Normoactive bowel sounds EXTREMITIES: Bilateral lower extremities free of edema. 2+ radial pulses bilaterally NEUROLOGICAL: Awake, alert and oriented 3. No focal neurologic deficits ap preciated. Non-dysarthric speech. PSYCHOLOGICAL: Mood and affect appear appropriate LABORATORY DATA, IMAGING STUDIES, MICROBIOLOGY: Please see below. ASSESSMENT AND PLAN: This is a 79yo male w/ notable h/o HTN, bladder ca, remote melanoma, HLD, GERD, and anxiety who was admitted on 08/22/20 with chief diagnosis of sepsis secondary to COVID-19 infection. He originally presented to [facility] on 08/17, tested positive for Covid 19 and diagnosed with a UTI, then was subsequently transferred to [facility] for higher level of care. He was discharged on 08/20 with outpatient scripts for oral prednisone and levofloxacin. He returned to [facility] on 08/22 with complaints of continued dyspnea on exertion and was found to have oxygen saturations between 8182 percent on 4 L nasal cannula oxygen. He also had a serum potassium 2.9 [address] providers at [facility] again requested transfer to [facility] for high- level care. Once back at [facility], a repeat chest x-ray on 08/25 showed wo rsening airspace disease and he was placed on ceftriaxone and azithromycin for superimposed bacterial infection. He had needed near maximum settings on Vapotherm to maintain saturations, but has been progressing very nicely over the past few days, weaning down steadily while using his incentive spirometer and getting out of bed at times during the day. He is now status post antibiotics, as well as 10 days of Remdesivir. Continues on IV steroids as well as zinc and vitamin C. #Covid-19 Pneumonia: Pranay continues on high flow oxygen via Vapotherm, with settings of 15% FiO2 and 40 L with saturation of 93% at time of our exam today. Current goal is to continue decreasing his Vapotherm demands and potentially switch over to nasal cannula sometime soon. -Due to his improvement, we will be switching to daily dexamethasone dosing 6 mg from previous twice a day. Remarks his 11th day on dexamethasone -He is status post Remdesivir dosing from 08/23-08/31. -continue with daily dosing of Lovenox 40 mg. -Continue with vitamin C and zinc supplementation. -He is s/p a short course of Rocephin and azithromycin for potential superimposed bacterial infection after 08/25 repeat chest x-ray showed worsening of airspace disease. -Continue with incentive spirometry and out of bed to chair at least 3-4 times per day - Will reduce frequency of Dexamethasone #Hypertension: Pressures have remained relatively well controlled over the past few days. Continue with the amlodipine (10 mg daily) and atenolol (25 mg daily) dosing. #GERD: Continue with Protonix 20 mg daily #Hyperlipidemia: Continue with home 40 mg simvastatin every night #Remote history of stage IIIB melanoma: Patient is to follow-up with both dermatology and oncology as needed on an outpatient basis #History of bladder cancer: Patient is to follow-up with both urology and, as similarly stated above with melanoma, to follow-up with oncology as outpatient. #History of anxiety: Patient is to continue with his home 5 mg dosing of daily escitalopram. #DVT prophylaxis: Continue with 40 mg daily Lovenox dosing Disposition: Pending continue wean down on Vapotherm with transition to nasal cannula with likely discharge in 34 days with home health services vs aru screen VS, I&O, 24H, Fishbone Vital Signs/I&O Vital Signs Date Time Temp Pulse Resp B/P (MAP) Pulse Ox O2 Delivery O2 Flow Rate FiO2 09/03/20 16:15 95 Nasal Cannula 4.0 09/03/20 16:00 96.9 75 124/88 (100) 09/03/20 15:14 40 09/03/20 12:00 20 I&O- Last 24 Hours up to 6 AM 09/03/20 06:00 Intake Total 0 ml Output Total 1100 ml Balance -1100 ml Laboratory Data 24H LABS Laboratory Tests 2 09/03/20 06:20: Fibrinogen 372, D-Dimer, Quantitative 469.93 09/03/20 06:23: Nucleated Red Blood Cells % (auto) 0.0, Anion Gap 6L, Glomerular Filtration Rate > 60.0, Calcium Level 7.7L, Magnesium Level 2.1, Ferritin 1762H, C-Reactive Protein, Quantitative 0.30, Procalcitonin <0.05 CBC/BMP Laboratory Tests 09/03/20 06:23 GME ATTESTATION GME ATTESTATION My faculty preceptor for this patient encounter was physically present during the encounter and was fully available. All aspects of the patient interview, examination, medical decision making process, and medical care plan development were reviewed and approved by the faculty preceptor. The faculty preceptor is aware and concurs with the plan as stated in the body of this note and will attest to such by his/her cosignature. ATTENDING NOTE I, Danica Salazar, have independently examined this patient and performed my own physical exam, as well as reviewed the documentation and edited where necessary. I have discussed in detail with the resident / student the findings and plan of treatment as documented by the resident / student and edited their note. I agree with their findings and treatment plan and have edited their documentation. I will continue to follow the patient during this hospital stay. FREDO DUQUE D.O. Sep 03, 2020 18:44 DANICA SALAZAR MD Sep 04, 2020 11:36
[2020-09-03] MEDS: NORTRIPTYLINE 25 MG CAP PO SCH (20:10)
[2020-09-03] MEDS: SIMVASTATIN 40 MG TAB PO SCH (20:11)
[2020-09-04 04:15] VITALS: BP 125/60
[2020-09-04] MEDS: SLF 3 ML SYR IV SCH ×3 (05:37→20:46)
[2020-09-04 07:53] LABS: BASO % 0.1 % (0.0-1.0); EOS % 0.1 % (0.0-3.0); HEMATOCRIT 39.2 % (42.0-52.0); HEMOGLOBIN 13.3 g/dl (13.5-17.5); LYMPH # 1.1 10^3/uL (1.5-5.0); LYMPH % 5.6 % (24.0-44.0); MEAN CORPUSCULAR HEMOGLOBIN 30.5 pg (27.0-33.0); MEAN CORPUSCULAR HGB CONC 33.9 g/dl (32.0-36.5); MEAN CORPUSCULAR VOLUME 89.9 fl (80.0-96.0); MONO # 1.5 10^3/uL (0.0-0.8); MONO % 7.5 % (0.0-5.0); NEUTROPHILS # 17.3 10^3/uL (1.5-8.5); NEUTROPHILS % 85.9 % (36.0-66.0); PLATELET COUNT, AUTOMATED 257 10^3/uL (150-450); RED BLOOD COUNT 4.36 10^6/uL (4.30-6.10); WHITE BLOOD COUNT 20.1 10^3/uL (4.0-10.0)
[2020-09-04 08:00] VITALS: BP 119/63
[2020-09-04 08:08] LABS: INR 1.06
[2020-09-04 08:09] LABS: PARTIAL THROMBOPLASTIN TIME 28.1 SECONDS (24.2-38.5)
[2020-09-04 08:12] LABS: D-DIMER QUANT 671.07 ng/ml (<500)
[2020-09-04 08:29] LABS: ALBUMIN 2.5 GM/DL (3.2-5.2); ALT/SGPT 43 U/L (12-78); BILIRUBIN,DIRECT 0.3 MG/DL (0.0-0.2); BLOOD UREA NITROGEN 21 MG/DL (7-18); CALCIUM LEVEL 7.8 MG/DL (8.8-10.2); CARBON DIOXIDE LEVEL 31 MEQ/L (21-32); CHLORIDE LEVEL 99 MEQ/L (98-107); CREATININE FOR GFR 0.58 MG/DL (0.70-1.30); FERRITIN 1791 NG/ML (26-388); GLOMERULAR FILTRATION RATE > 60.0 (>42); GLUCOSE, FASTING 117 MG/DL (70-100); MAGNESIUM LEVEL 2.2 MG/DL (1.8-2.4); SODIUM LEVEL 134 MEQ/L (136-145)
[2020-09-04] MEDS ORDERED: dexameTHASONE 20MG/5ML VIAL (J1100 PER 1MG) IV SCH (09:00)
[2020-09-04] MEDS: FERROUS SULFATE 325MG TAB PO SCH (09:32)
[2020-09-04] MEDS: PANTOPRAZOLE 20 MG TAB PO SCH (09:32)
[2020-09-04] MEDS: amLODIPine 10 MG TAB PO SCH (09:32)
[2020-09-04] MEDS: SENOKOT S TAB PO SCH ×2 (09:32→20:45)
[2020-09-04] MEDS: atenoloL 25 MG TAB PO SCH (09:32)
[2020-09-04] MEDS: ASPIRIN 81 MG CHEW TABLET PEG SCH (09:32)
[2020-09-04] MEDS: ZINC SULFATE 220 MG CAP PO SCH (09:33)
[2020-09-04] MEDS: ESCITALOPRAM OXALATE 5MG TABLET (LEXAPRO) PO SCH (09:33)
[2020-09-04] MEDS: ASCORBIC ACID 500 MG TAB PO SCH (09:33)
[2020-09-04] MEDS: GABAPENTIN 300 MG CAP PO SCH ×2 (09:33→20:43)
[2020-09-04] MEDS: ENOXAPARIN 40MG/0.4ML SYRINGE (J1650 PER 10MG) SC SCH (09:33)
--- NOTE | 2020-09-04 11:52 | IPNPDOC ---
Text Note Date of Service The patient was seen on 09/04/20. NOTE Subjective: Patient is a 79-year-old male with a PMHx of HTN, DLP, Bladder CA, Melanoma, Anxiety, GERD who presented to [place] [facility] on 08/22 with complaints of shortness of breath and found to be hypoxic at 88-82% on NC4L. Patient was transferred to [facility] for further evaluation. Patient had initially presented to [facility] ER on 08/17 and tested positive for COVID19; he was transferred to [facility] for a UTI. He was subsequently discharged on 08/20 with Prednisone / Levofloxacin. On 08/25, patient had a chest x-ray that had revealed worsening airspace disease and patient was started on ceftriaxone and azithromycin for suspected superimposed bacterial infection. Patient was requiring Vapotherm therapy. He has since completed a ten-day course of Remdesivir since arrival. Patient was seen and examined at the bedside. Currently patient is doing well, he has been taken off of Vapotherm therapy and placed on nasal cannula oxygen at 4 L. Patient denies any chest pain or palpitations. Patient is encouraged to continue to work with physical therapy. Reports some shortness of breath with exertion. Denies any significant cough. Denies any nausea, vomiting, abdominal pain or diarrhea. Objective: Vitals (See below) General: Lying in bed, does not appear to be in any acute distress. Appears comfortable, AAOx3 HEENT: NC, AT CVS: +S1S2 Lungs: Fair air entry b/l, no appreciable wheezing, rhonchi or rales Abdomen: Soft, ND, NT Extremities: - Edema, - Calf tenderness Imaging: CXR 08/22: Bilateral interstitial disease, predominantly in the mid and lower lung zones. No consolidation. No pleural effusions. Probable bilateral infectious pneumonia (such as Covid pneumonia, eg). CXR 08/25: Multifocal airspace disease suggested and possibly minimally progressive. Abdomen XR 08/29: Nonspecific bowel gas pattern.. CXR 08/31: Bilateral opacities similar to prior examination. Assessment and plan: Acute hypoxic respiratory failure - likely 2/2 COVID19 pneumonitis, s/p Superimposed bacterial infection - Presented as a transfer from [facility] on 08/22 for hypoxia - s/p Vapotherm; currently patient is on nasal cannula oxygen at 4 L - Inflammatory markers have been improving - Pro-calcitonin negative - Imaging noted - s/p Remdesivir (Completed 10 day course; 08/22-08/31) - s/p Antibiotic therapy (Completed 7 day course of Ceftriaxone / Azithromycin) - c/w Dexamethasone - c/w Incentive spirometry / acapella HTN - BP well controlled - c/w Amlodipine / Atenolol DLP - c/w Simvastatin and ASA Melanoma Hx - Follows with Dermatology / Oncology as an outpatient Hx of bladder cancer - Follows with Urology / Oncology as an outpatient Anxiety / Mood disorder - c/w Escitalopram / Nortriptyline Neuropathy - c/w Gabapentin GERD - c/w Protonix DVT prophylaxis - c/w Lovenox 40 daily Disposition: - Continues to titrate down on oxygen requirement - Will continue with physical therapy and occupational therapy VS,Tisha, I+O VSTisha I+O Laboratory Tests 09/04/20 06:44 Vital Signs Date Time Temp Pulse Resp B/P (MAP) Pulse Ox O2 Delivery O2 Flow Rate FiO2 09/04/20 09:32 79 119/63 09/04/20 08:00 97.1 20 91 Nasal Cannula 4.0 09/03/20 15:14 40 I&O- Last 24 Hours up to 6 AM 09/04/20 06:00 Intake Total 1260 ml Output Total 1050 ml Balance 210 ml NAREN SALAZAR MD Sep 04, 2020 11:52
[2020-09-04 12:00] VITALS: BP 105/76
[2020-09-04 16:00] VITALS: BP 123/64
[2020-09-04 19:55] VITALS: BP 129/66
[2020-09-04] MEDS: NORTRIPTYLINE 25 MG CAP PO SCH (20:45)
[2020-09-04] MEDS: SIMVASTATIN 40 MG TAB PO SCH (20:46)
[2020-09-04 23:21] VITALS: BP 116/68
[2020-09-05 03:32] VITALS: BP 115/60
[2020-09-05] MEDS: SLF 3 ML SYR IV SCH ×3 (04:57→22:00)
[2020-09-05 07:57] LABS: BASO % 0.1 % (0.0-1.0); EOS % 0.2 % (0.0-3.0); HEMATOCRIT 38.8 % (42.0-52.0); HEMOGLOBIN 13.3 g/dl (13.5-17.5); LYMPH # 0.9 10^3/uL (1.5-5.0); LYMPH % 4.9 % (24.0-44.0); MEAN CORPUSCULAR HEMOGLOBIN 30.7 pg (27.0-33.0); MEAN CORPUSCULAR HGB CONC 34.3 g/dl (32.0-36.5); MEAN CORPUSCULAR VOLUME 89.6 fl (80.0-96.0); MONO # 1.2 10^3/uL (0.0-0.8); MONO % 6.4 % (0.0-5.0); NEUTROPHILS # 15.7 10^3/uL (1.5-8.5); NEUTROPHILS % 87.5 % (36.0-66.0); PLATELET COUNT, AUTOMATED 240 10^3/uL (150-450); RED BLOOD COUNT 4.33 10^6/uL (4.30-6.10); WHITE BLOOD COUNT 17.9 10^3/uL (4.0-10.0)
[2020-09-05 08:00] VITALS: BP 121/69
[2020-09-05 08:14] LABS: INR 0.98; PROTHROMBIN TIME 13.2 SECONDS (12.5-14.3)
[2020-09-05 08:18] LABS: ALBUMIN 2.4 GM/DL (3.2-5.2); ALT/SGPT 45 U/L (12-78); BILIRUBIN,DIRECT 0.3 MG/DL (0.0-0.2); BLOOD UREA NITROGEN 18 MG/DL (7-18); C REACTIVE PROTEIN QUANTITATIV 0.56 MG/DL (0.00-0.30); CALCIUM LEVEL 7.8 MG/DL (8.8-10.2); CARBON DIOXIDE LEVEL 29 MEQ/L (21-32); CHLORIDE LEVEL 100 MEQ/L (98-107); CREATININE FOR GFR 0.59 MG/DL (0.70-1.30); FERRITIN 1764 NG/ML (26-388); GLOMERULAR FILTRATION RATE > 60.0 (>42); GLUCOSE, FASTING 124 MG/DL (70-100); MAGNESIUM LEVEL 2.1 MG/DL (1.8-2.4); POTASSIUM SERUM 3.8 MEQ/L (3.5-5.1); SODIUM LEVEL 134 MEQ/L (136-145); TOTAL PROTEIN 5.3 GM/DL (6.4-8.2)
[2020-09-05 08:48] LABS: D-DIMER QUANT 621.68 ng/ml (<500)
[2020-09-05] MEDS: ENOXAPARIN 40MG/0.4ML SYRINGE (J1650 PER 10MG) SC SCH (10:15)
[2020-09-05] MEDS: ZINC SULFATE 220 MG CAP PO SCH (10:16)
[2020-09-05] MEDS: GABAPENTIN 300 MG CAP PO SCH ×2 (10:16→19:34)
[2020-09-05] MEDS: SENOKOT S TAB PO SCH ×2 (10:16→19:31)
[2020-09-05] MEDS: ASPIRIN 81 MG CHEW TABLET PEG SCH (10:16)
[2020-09-05] MEDS: PANTOPRAZOLE 20 MG TAB PO SCH (10:16)
[2020-09-05] MEDS: FERROUS SULFATE 325MG TAB PO SCH (10:17)
[2020-09-05] MEDS: amLODIPine 10 MG TAB PO SCH (10:17)
[2020-09-05] MEDS: ASCORBIC ACID 500 MG TAB PO SCH (10:17)
[2020-09-05] MEDS: atenoloL 25 MG TAB PO SCH (10:18)
[2020-09-05] MEDS: ESCITALOPRAM OXALATE 5MG TABLET (LEXAPRO) PO SCH (10:19)
[2020-09-05] MEDS: dexameTHASONE 4 MG/ML 1ML VIAL (J1100 PER 1MG) IV SCH (10:20)
[2020-09-05 11:48] VITALS: BP 123/68
--- NOTE | 2020-09-05 15:59 | IPNPDOC ---
Text Note Date of Service The patient was seen on 09/05/20. NOTE Pt was seen at bedside this am. And has significantly improved and only requir ing 3 L of nasal cannula. He was able to walk around and I got him up from the bed and he was standing for around 3 minutes without any issues Physical examination General: lying in bed, comfortable; on 3 L nasal cannula HEENT: PERRLA, EOMI, sclerae appears mild jaundiced, no hearing loss Neck: supple, normal ROM, no JVD Respiratory: lungs CTAB, no wheeze, no rales, no crackles CVS: Sinus rhythm, normal S1, S2, no murmurs Abdomen: non distended and non tender on palpation, + BS, no guarding Extremities: no edema, pulses 2+ lower extr MSK: no joint deformities, normal ROM, left CVA tenderness to percussion Neuro: no focal neuro deficits, moving all 4 extremities, CN2-12 intact. Strength 4/5 in all 4 extremities. No nystagmus. Psych: calm, cooperative, AAO x 3 Assessment and plan This is a 79-year-old with a history of hypertension, remote history of melanoma, bladder cancer, anxiety, & GERD who was diagnosed with Covid 19 (08/17) at [facility] and transferred to [facility] and admitted for sepsis 2/2 to COVID 19. He was treated with IV rocephin azithromycin and transitioned to PO levaquin for 5 more days at time of discharge. He was given IV steroids and then transitioned PO prednosone for 5 days prior to discharge. This gentleman presents back to the ER for persistent hypoxia and was admitted to the hospitalist service and had a long course. His Covid 19 interstitial pneumonia and hypoxic respiratory failure worsened. He finished the 10 day course of remdesevir, and finished the IV antibiotics for any superimposed pneumonia as well. He has been improving, now requiring 3 L nasal cannula, which is a significant improvement for him. 1. COVID 19 PNA: He is saturating 94% on 3 L. We'll try to deescalated as tolerated. Remdesevir finished for a total of 10 days dexamethasone on 6 mg twice a day. Continue Lovenox 40 daily. Continue to monitor. Vitamin C and zinc. Incentive spirometry, out of bed to chair 4 times a day. Along with PT, OT 2. Hypertension: Continue his amlodipine and atenolol. Blood pressure in acceptable range 3. Hyperlipidemia. Continue Simvastatin 4. Hx of Stage IIIB Melanoma & Bladder cancer: Follow-up with hematology oncology outpt 5. GERD: protonix 6. Hx of Anxiety : C/w Citalopram DVT ppx: Lovenox 40 BID Out of bed to chair, incentive spirometer. Disposition: As he is doing fine on 3 L of nasal cannula and has been able to ambulate. He will be going home with home health and PT. Possible disposition is tomorrow. Discharge home VS,Fishbone, I+O VS, Fishbone, I+O Laboratory Tests 09/05/20 06:42 Vital Signs Date Time Temp Pulse Resp B/P (MAP) Pulse Ox O2 Delivery O2 Flow Rate FiO2 09/05/20 12:00 3.0 09/05/20 11:48 97.1 79 20 123/68 (86) 96 Nasal Cannula 09/03/20 15:14 40 I&O- Last 24 Hours up to 6 AM 09/05/20 06:00 Intake Total 1440 ml Output Total 1650 ml Balance -210 ml LOGA HAGAN MD Sep 05, 2020 15:59
[2020-09-05 16:00] VITALS: BP 132/67
[2020-09-05] MEDS: NORTRIPTYLINE 25 MG CAP PO SCH (19:31)
[2020-09-05] MEDS: SIMVASTATIN 40 MG TAB PO SCH (19:31)
[2020-09-05 19:35] VITALS: BP 134/68
[2020-09-05] MEDS: NYSTATIN 100,000 UNITS/GM TOPICAL PWD 15 GM TOP SCH (19:35)
[2020-09-06 03:22] VITALS: BP 135/64
[2020-09-06] MEDS: SLF 3 ML SYR IV SCH ×3 (05:13→20:26)
[2020-09-06 07:37] LABS: BASO % 0.1 % (0.0-1.0); EOS # 0.1 10^3/uL (0.0-0.5); EOS % 0.7 % (0.0-3.0); HEMATOCRIT 37.5 % (42.0-52.0); HEMOGLOBIN 12.6 g/dl (13.5-17.5); LYMPH # 1.3 10^3/uL (1.5-5.0); LYMPH % 7.2 % (24.0-44.0); MEAN CORPUSCULAR HEMOGLOBIN 30.2 pg (27.0-33.0); MEAN CORPUSCULAR HGB CONC 33.6 g/dl (32.0-36.5); MEAN CORPUSCULAR VOLUME 89.9 fl (80.0-96.0); MONO # 1.2 10^3/uL (0.0-0.8); MONO % 6.6 % (0.0-5.0); NEUTROPHILS # 15.5 10^3/uL (1.5-8.5); NEUTROPHILS % 84.5 % (36.0-66.0); PLATELET COUNT, AUTOMATED 193 10^3/uL (150-450); RED BLOOD COUNT 4.17 10^6/uL (4.30-6.10); WHITE BLOOD COUNT 18.3 10^3/uL (4.0-10.0)
[2020-09-06 07:46] LABS: INR 0.94; PROTHROMBIN TIME 12.8 SECONDS (12.5-14.3)
[2020-09-06 07:47] LABS: PARTIAL THROMBOPLASTIN TIME 27.3 SECONDS (24.2-38.5)
[2020-09-06 07:50] LABS: D-DIMER QUANT 695.18 ng/ml (<500)
[2020-09-06 07:56] LABS: ALBUMIN 2.3 GM/DL (3.2-5.2); ALT/SGPT 49 U/L (12-78); BILIRUBIN,DIRECT 0.3 MG/DL (0.0-0.2); BLOOD UREA NITROGEN 17 MG/DL (7-18); CALCIUM LEVEL 7.7 MG/DL (8.8-10.2); CARBON DIOXIDE LEVEL 30 MEQ/L (21-32); CHLORIDE LEVEL 100 MEQ/L (98-107); CREATININE FOR GFR 0.57 MG/DL (0.70-1.30); FERRITIN 1426 NG/ML (26-388); GLOMERULAR FILTRATION RATE > 60.0 (>42); GLUCOSE, FASTING 88 MG/DL (70-100); POTASSIUM SERUM 3.5 MEQ/L (3.5-5.1); SODIUM LEVEL 135 MEQ/L (136-145); TOTAL PROTEIN 5.1 GM/DL (6.4-8.2)
[2020-09-06 08:00] VITALS: BP 105/66
[2020-09-06] MEDS: dexameTHASONE 4 MG/ML 1ML VIAL (J1100 PER 1MG) IV SCH (08:52)
[2020-09-06] MEDS: NYSTATIN 100,000 UNITS/GM TOPICAL PWD 15 GM TOP SCH ×2 (08:52→20:26)
[2020-09-06] MEDS: SENOKOT S TAB PO SCH ×2 (08:53→20:25)
[2020-09-06] MEDS: ASPIRIN 81 MG CHEW TABLET PEG SCH (08:53)
[2020-09-06] MEDS: ESCITALOPRAM OXALATE 5MG TABLET (LEXAPRO) PO SCH (08:53)
[2020-09-06] MEDS: PANTOPRAZOLE 20 MG TAB PO SCH (08:53)
[2020-09-06] MEDS: FERROUS SULFATE 325MG TAB PO SCH (08:53)
[2020-09-06] MEDS: GABAPENTIN 300 MG CAP PO SCH ×2 (08:53→20:25)
[2020-09-06] MEDS: ZINC SULFATE 220 MG CAP PO SCH (08:54)
[2020-09-06] MEDS: ASCORBIC ACID 500 MG TAB PO SCH (08:54)
[2020-09-06] MEDS: amLODIPine 10 MG TAB PO SCH (08:54)
[2020-09-06] MEDS: atenoloL 25 MG TAB PO SCH (08:55)
[2020-09-06] MEDS: ENOXAPARIN 40MG/0.4ML SYRINGE (J1650 PER 10MG) SC SCH (08:55)
[2020-09-06 12:00] VITALS: BP 109/62
--- NOTE | 2020-09-06 13:21 | IPNPDOC ---
Text Note Date of Service The patient was seen on 09/06/20. NOTE Pt was seen at bedside this am. And has significantly improved and only requir ing 3 L of nasal cannula. He was able to walk around . Also had a detailed discussion with the daughter today regarding the disposition Physical examination General: lying in bed, comfortable; on 3 L nasal cannula HEENT: PERRLA, EOMI, sclerae appears mild jaundiced, no hearing loss Neck: supple, normal ROM, no JVD Respiratory: lungs CTAB, no wheeze, no rales, no crackles CVS: Sinus rhythm, normal S1, S2, no murmurs Abdomen: non distended and non tender on palpation, + BS, no guarding Extremities: no edema, pulses 2+ lower extr MSK: no joint deformities, normal ROM, left CVA tenderness to percussion Neuro: no focal neuro deficits, moving all 4 extremities, CN2-12 intact. Strength 4/5 in all 4 extremities. No nystagmus. Psych: calm, cooperative, AAO x 3 Assessment and plan This is a 79-year-old with a history of hypertension, remote history of melanoma, bladder cancer, anxiety, & GERD who was diagnosed with Covid 19 (08/17) at [facility] and transferred to [facility] and admitted for sepsis 2/2 to COVID 19. He was treated with IV rocephin azithromycin and transitioned to PO levaquin for 5 more days at time of discharge. He was given IV steroids and then transitioned PO prednosone for 5 days prior to discharge. This gentleman presents back to the ER for persistent hypoxia and was admitted to the hospitalist service and had a long course. His Covid 19 interstitial pneumonia and hypoxic respiratory failure worsened. He finished the 10 day course of remdesevir, and finished the IV antibiotics for any superimposed pneumonia as well. He has been improving, now requiring 3 L nasal cannula. 1. COVID 19 PNA: He is saturating 94% on 3 L. We'll try to deescalated as tolerated. Remdesevir finished for a total of 10 days dexamethasone on 6 mg twice a day. Continue Lovenox 40 daily. Continue to monitor. Vitamin C and zinc. Incentive spirometry, out of bed to chair 4 times a day. Along with PT, OT 2. Hypertension: Continue his amlodipine and atenolol. Blood pressure in acce ptable range 3. Hyperlipidemia. Continue Simvastatin 4. Hx of Stage IIIB Melanoma & Bladder cancer: Follow-up with hematology oncology outpt 5. GERD: protonix 6. Hx of Anxiety : C/w Citalopram DVT ppx: Lovenox 40 BID Out of bed to chair, incentive spirometer. Disposition: Physical therapy has the evaluated and cleared him for discharge with home health and physical therapy at home. I spoke with the daughter in detail regarding the disposition and she is still worried about his strength and wants to look in further options for rehabilitation. We will try to reassess this and in case we are not able to get into an inpatient rehabilitation, then the patient will go home with home health. VS,Fishbone, I+O VS, Fishbone, I+O Laboratory Tests 09/06/20 07:07 Vital Signs Date Time Temp Pulse Resp B/P (MAP) Pulse Ox O2 Delivery O2 Flow Rate FiO2 09/06/20 12:00 96.9 81 19 109/62 (78) 93 Nasal Cannula 3.0 09/03/20 15:14 40 I&O- Last 24 Hours up to 6 AM 09/06/20 06:00 Intake Total 1200 ml Output Total 1000 ml Balance 200 ml OLGA HAGAN MD Sep 06, 2020 13:21
[2020-09-06 16:00] VITALS: BP 120/58
[2020-09-06 19:55] VITALS: BP 103/52
[2020-09-06 20:00] VITALS: BP 134/64
[2020-09-06] MEDS: SIMVASTATIN 40 MG TAB PO SCH (20:25)
[2020-09-06] MEDS: NORTRIPTYLINE 25 MG CAP PO SCH (20:25)
[2020-09-07] VITALS (7 sets, daily range): BP systolic 95–126; BP diastolic 56–72
[2020-09-07] MEDS: SLF 3 ML SYR IV SCH (05:55)
[2020-09-07 06:00] LABS: BASO % 0.2 % (0.0-1.0); EOS # 0.2 10^3/uL (0.0-0.5); EOS % 0.9 % (0.0-3.0); HEMATOCRIT 38.1 % (42.0-52.0); HEMOGLOBIN 12.9 g/dl (13.5-17.5); LYMPH # 1.5 10^3/uL (1.5-5.0); MEAN CORPUSCULAR HEMOGLOBIN 30.6 pg (27.0-33.0); MEAN CORPUSCULAR HGB CONC 33.9 g/dl (32.0-36.5); MEAN CORPUSCULAR VOLUME 90.3 fl (80.0-96.0); MONO # 1.2 10^3/uL (0.0-0.8); MONO % 6.8 % (0.0-5.0); NEUTROPHILS # 15.2 10^3/uL (1.5-8.5); NEUTROPHILS % 83.3 % (36.0-66.0); PLATELET COUNT, AUTOMATED 185 10^3/uL (150-450); RED BLOOD COUNT 4.22 10^6/uL (4.30-6.10); WHITE BLOOD COUNT 18.2 10^3/uL (4.0-10.0)
[2020-09-07 06:09] LABS: INR 0.96
[2020-09-07 06:10] LABS: PARTIAL THROMBOPLASTIN TIME 29.2 SECONDS (24.2-38.5)
[2020-09-07 06:13] LABS: D-DIMER QUANT 687.93 ng/ml (<500)
[2020-09-07 06:33] LABS: ALBUMIN 2.4 GM/DL (3.2-5.2); ALT/SGPT 53 U/L (12-78); BILIRUBIN,DIRECT 0.3 MG/DL (0.0-0.2); BILIRUBIN,TOTAL 1.1 MG/DL (0.2-1.0); BLOOD UREA NITROGEN 15 MG/DL (7-18); C REACTIVE PROTEIN QUANTITATIV 3.12 MG/DL (0.00-0.30); CALCIUM LEVEL 7.8 MG/DL (8.8-10.2); CARBON DIOXIDE LEVEL 33 MEQ/L (21-32); CHLORIDE LEVEL 100 MEQ/L (98-107); CREATININE FOR GFR 0.65 MG/DL (0.70-1.30); FERRITIN 1394 NG/ML (26-388); GLOMERULAR FILTRATION RATE > 60.0 (>42); GLUCOSE, FASTING 97 MG/DL (70-100); POTASSIUM SERUM 3.7 MEQ/L (3.5-5.1); SODIUM LEVEL 135 MEQ/L (136-145)
[2020-09-07] MEDS: SENOKOT S TAB PO SCH (09:00)
[2020-09-07] MEDS: atenoloL 25 MG TAB PO SCH (09:00)
[2020-09-07] MEDS: amLODIPine 10 MG TAB PO SCH (09:00)
[2020-09-07] MEDS: ASPIRIN 81 MG CHEW TABLET PEG SCH (09:12)
[2020-09-07] MEDS: FERROUS SULFATE 325MG TAB PO SCH (09:12)
[2020-09-07] MEDS: PANTOPRAZOLE 20 MG TAB PO SCH (09:12)
[2020-09-07] MEDS: ZINC SULFATE 220 MG CAP PO SCH (09:12)
[2020-09-07] MEDS: ENOXAPARIN 40MG/0.4ML SYRINGE (J1650 PER 10MG) SC SCH (09:12)
[2020-09-07] MEDS: ESCITALOPRAM OXALATE 5MG TABLET (LEXAPRO) PO SCH (09:13)
[2020-09-07] MEDS: GABAPENTIN 300 MG CAP PO SCH (09:13)
[2020-09-07] MEDS: ASCORBIC ACID 500 MG TAB PO SCH (09:14)
[2020-09-07] MEDS: NYSTATIN 100,000 UNITS/GM TOPICAL PWD 15 GM TOP SCH (09:15)
[2020-09-07] MEDS: dexameTHASONE 4 MG/ML 1ML VIAL (J1100 PER 1MG) IV SCH (09:15)
[2020-09-07] MEDS ORDERED: ASCO50TA PO (15:09)
[2020-09-07] MEDS ORDERED: ZINC220CA PO (15:09)
[2020-09-07] MEDS ORDERED: DECA4TAB PO (15:22)
--- NOTE | 2020-09-08 17:09 | DS.PDOC ---
Discharge Summary General Date of Admission Aug 22, 2020 at 01:20 Date of Discharge 09/07/2020 Attending Physician: CHIP MONTALVO MD Discharge Summary ADMITTING DIAGNOSES: 1. SOB DISCHARGE DIAGNOSES: COVID PNA Hypertension Hyperlipidemia HX of Stage IIIB Melanoma Insomnia/intrinsic sleep disorder/periodic limb movement disorder Bladder cancer GERD Anxiety Bilateral cataract surgery COMPLICATIONS/CHIEF COMPLAINT: Covid 19, Hypoxia. HISTORY OF PRESENT ILLNESS: This 79-year-old gentleman was admitted at [facility] from August 17 to for management of sepsis Covid and UTI; he was not a candidate for remdisivir and was discharged home with the levofloxacin and oral prednisone and instructed to follow-up with his primary care doctor. Over the next few days, he continued to feel short of breath especially with exertion. Therefore, he presented to [facility] , he was noted to be satting at 81-82% on 4 L via nasal cannula. He was also noted to have a potassium of 2.9. Providers at [facility] requested transfer for higher level of care. Currently, he reports feeling a little bit better with high flow nasal cannula. HOSPITAL COURSE: This is a 79-year-old with a history of hypertension, remote history of melanoma, bladder cancer, anxiety, & GERD who was diagnosed with Covid 19 (08/17) at [facility] and transferred to [facility] and admitted for sepsis 2/2 to COVID 19. He was treated with IV rocephin azithromycin and transitioned to PO levaquin for 5 more days at time of discharge. He was given IV steroids and then transitioned PO prednisone for 5 days prior to discharge. This gentleman presents back to the ER for persistent hypoxia and was admitted to the hospitalist service and had a long course. His Covid 19 interstitial pneumonia and hypoxic respiratory failure worsened. He finished the 10 day course of remdesivir, and finished the IV antibiotics for any superimposed pneumonia as well. He has been improving, now requiring 3 L NC, which is a significant improvement for him. #COVID 19 PNA: He is saturating 94% on 3 L. Remdesivir finished for a total of 10 days dexamethasone on 6 mg twice a day. Will d/c home with zinc and vitc and dexamethasone 2mg daily for 4 more days #Hypertension: Continue his amlodipine and atenolol. Blood pressure in acceptable range #Hyperlipidemia. Continue Simvastatin #Hx of Stage IIIB Melanoma & Bladder cancer: Follow-up with hematology oncology outpt #GERD: protonix #Hx of Anxiety : C/w Citalopram DVT ppx: Lovenox 40 BID DISCHARGE MEDICATIONS: Please see below ALLERGIES: Please see below. PHYSICAL EXAMINATION ON DISCHARGE: VITAL SIGNS: Please see below GEN: well-nourished / well developed/ NAD HEENT: lips acyanotic /mucus membranes moist and pink ,sclera anicteric,abdominojugular reflux CVS: RRR, NMRG, no JVP, radial and dorsalis pedis pulses intact, no lower extremity edema LUNGS: able to speak full sentences without stopping to take a breath / coughing / lungs are clear to auscultation bilaterally on room air ABDOMEN: Contour (obese) MSK/EXTREMITIES: NCAT NEURO: No focal neuro deficits PSYCH: alert and oriented to person place and time/ able to understand and follow all commands LABORATORY DATA: Please see below. IMAGIN/21 XR chest: Bilateral interstitial disease, predominantly in the mid and lower lung zones. No consolidation. No pleural effusions. Probable bilateral infectious pneumonia (such as Covid pneumonia, eg). 08/25 XR chest: Multifocal airspace disease suggested and possibly minimally progressive. Abdomen XR: Nonspecific bowel gas pattern. XR: Bilateral opacities similar to prior examination. PROGNOSIS: Fair ACTIVITY: As tolerated DIET: 2g Na DISCHARGE PLAN: Home with home health and PT DISPOSITION: Home Health Service. DISCHARGE INSTRUCTIONS: Please be compliant with your medications Please follow up with PCP within 3-5 days of hospital d/c Please take zinc and vit c as prescribed Please take dexamethasone 2mg PO daily for 4 more days If condition worsens, please report back to nearest ER TIME SPENT ON DISCHARGE: Greater than 35 minutes Vital Signs/I&Os Vital Signs Date Time Temp Pulse Resp B/P (MAP) Pulse Ox O2 Delivery O2 Flow Rate FiO2 09/07/20 16:00 98.3 109 17 110/64 (79) 94 Nasal Cannula 2.0 09/03/20 15:14 40 I&O- Last 24 Hours up to 6 AM 09/07/20 06:00 Intake Total 900 ml Output Total 1050 ml Balance -150 ml Laboratory Data Labs 24H Laboratory Tests 2 09/07/20 05:28: Immature Granulocyte % (Auto) 0.8, Neutrophils (%) (Auto) 83.3H, Lymphocytes (%) (Auto) 8.0L, Monocytes (%) (Auto) 6.8H, Eosinophils (%) (Auto) 0.9, Basophils (%) (Auto) 0.2, Neutrophils # (Auto) 15.2H, Lymphocytes # (Auto) 1.5, Monocytes # (Auto) 1.2H, Eosinophils # (Auto) 0.2, Basophils # (Auto) 0.0, Nucleated Red Blood Cells % (auto) 0.0, Prothrombin Time 13.0, Prothromb Time International Ratio 0.96, Activated Partial Thromboplast Time 29.2, Fibrinogen 490H, D-Dimer, Quantitative 687.93H, Anion Gap 2L, Glomerular Filtration Rate > 60.0, Calcium Level 7.8L, Magnesium Level 2.0, Ferritin 1394H, Total Bilirubin 1.1H, Direct Bilirubin 0.3H, Aspartate Amino Transf (AST/SGOT) 16, Alanine Aminotransferase (ALT/SGPT) 53, Alkaline Phosphatase 56, C-Reactive Protein, Quantitative 3.12H, Total Protein 5.0L, Albumin 2.4L, Albumin/Globulin Ratio 0.9, Procalcitonin <0.05 CBC/BMP Laboratory Tests 09/07/20 05:28 Discharge Medications Scheduled Ascorbic Acid (Vitamin C) 500 Mg Tablet, 1,000 MG PO DAILY Atenolol (Atenolol) 25 Mg Tablet, 25 MG PO DAILY, (Reported) Dexamethasone (Decadron) 4 Mg Tablet, 2 MG PO DAILY Escitalopram Oxalate (Lexapro) 5 Mg Tablet, 5 MG PO DAILY, (Reported) Esomeprazole Magnesium (Nexium) 20 Mg Capsule.dr, 20 MG PO DAILY, (Reported) Ferrous Sulfate (Ferrous Sulfate) 325 Mg Tablet, 325 MG PO DAILY, (Reported) Gabapentin (Gabapentin) 600 Mg Tablet, 600 MG PO BID, (Reported) Lactose-Reduced Food (Ensure Liquid) 237 Ml Liquid, 237 ML PO DAILY, (Reported) CONSUMES BETWEEN LUNCH AND DINNER Nortriptyline HCl (Nortriptyline HCl) 25 Mg Capsule, 25 MG PO QHS, (Reported) Simvastatin (Simvastatin) 40 Mg Tablet, 40 MG PO QHS, (Reported) Zinc Sulfate (Zinc Sulfate) 220 Mg Capsule, 220 MG PO DAILY Scheduled PRN Acetaminophen (Acetaminophen) 500 Mg Tablet, 1,000 MG PO Q6H PRN for PAIN, (Reported) Albuterol Sulfate (Ventolin Hfa) 18 Gm Hfa.aer.ad, 2 PUFF INH Q4-6HP PRN for wheezing, (Reported) Nitroglycerin (Nitrostat) 0.4 Mg Tab.subl, 0.4 MG SL NITRO PRN for CHEST PAIN, (Reported) Pimecrolimus (Elidel) 30 Gm Cream..g., 1 DOSE TOP DAILY PRN for ECZEMA, (Reported) APPLY TO FACE NEEDED Allergies Coded Allergies: No Known Allergies (Unverified , 08/17/20) GME ATTESTATION GME ATTESTATION My faculty preceptor for this patient encounter was physically present during the encounter and was fully available. All aspects of the patient interview, examination, medical decision making process, and medical care plan development were reviewed and approved by the faculty preceptor. The faculty preceptor is aware and concurs with the plan as stated in the body of this note and will att est to such by his/her cosignature. GME ATTESTATION GME ATTESTATION My faculty preceptor for this patient encounter was physically present during the encounter and was fully available. All aspects of the patient interview, examination, medical decision making process, and medical care plan development were reviewed and approved by the faculty preceptor. The faculty preceptor is aware and concurs with the plan as stated in the body of this note and will attest to such by his/her cosignature. ATTENDING NOTE I, Chip Montalvo MD, have independently examined this patient and performed my own physical exam, as well as reviewed the documentation and edited where necessary. I have discussed in detail with the resident / student the findings and plan of treatment as documented by the resident / student and edited their note. I agree with their findings and treatment plan and have edited their documentation. Venecia Lebron DO Sep 07, 2020 18:51 CHIP OMNTALVO MD Sep 09, 2020 15:12
== END 2020-09-07 16:43 | disposition home health service (06) | DRG 177 ==
LOC: M 4MAIN 08-22 01:20
PROVIDERS: ADMIT Internal Medicine; ATTEND Internal Medicine
DX: U07.1 COVID-19 (principal); J12.89 Other viral pneumonia; J96.01 Acute respiratory failure with hypoxia; A41.9 Sepsis, unspecified organism; C43.9 Malignant melanoma of skin, unspecified; C67.9 Malignant neoplasm of bladder, unspecified; I10 Essential (primary) hypertension; E78.5 Hyperlipidemia, unspecified; F41.9 Anxiety disorder, unspecified; K21.9 Gastro-esophageal reflux disease without esophagitis; G47.00 Insomnia, unspecified; Z79.899 Other long term (current) drug therapy; Z87.891 Personal history of nicotine dependence; Z99.81 Dependence on supplemental oxygen

== ENCOUNTER → 2020-12-23 | Outpatient (REF) | payer MEDICARE ==
[~2020-12-23] MED LIST changes: +ACET-683 PO; +ASCO50TA PO; +DECA4TAB PO; +LEVO750T14 PO; +ZINC220CA PO
== END ==
LOC: M LAB REF 14:11
PROVIDERS: ATTEND Dermatology
DX: L57.0 Actinic keratosis (principal); L57.8 Other skin changes due to chronic exposure to nonionizing radiation

== ENCOUNTER → 2022-01-02 | Outpatient (REF) | payer MEDICARE ==
[2022-01-02 13:52] LABS: APPEARANCE, URINE CLEAR (CLEAR); BACTERIA, URINE AUTO NEGATIVE (NEGATIVE); BILIRUBIN, URINE AUTO NEGATIVE (NEGATIVE); BLOOD, URINE BLOOD NEGATIVE (NEGATIVE); COLOR, URINE STRAW (YELLOW); GLUCOSE, URINE (UA) AUTO 1+ mg/dL (NEGATIVE); KETONE, URINE AUTO NEGATIVE (NEGATIVE); LEUKOCYTE ESTERASE, URINE AUTO NEGATIVE (NEGATIVE); NITRITE, URINE AUTO NEGATIVE (NEGATIVE); PROTEIN, URINE AUTO NEGATIVE (NEGATIVE); RBC, URINE AUTO 0 /HPF (0-3); SPECIFIC GRAVITY URINE AUTO 1.005 (1.002-1.035); SQUAMOUS EPITHELIAL CELL UR AU 0 /HPF (0-6); UROBILINOGEN, URINE AUTO 0.2 mg/dL (0.0-2.0); WBC, URINE AUTO 2 /HPF (0-3)
== END ==
LOC: M SMT 12:50
PROVIDERS: ATTEND Urology
DX: Z85.51 Personal history of malignant neoplasm of bladder (principal)

== ENCOUNTER → 2022-08-05 | Outpatient (CLI) | payer MEDICARE ==
[~2022-08-05] MED LIST changes: +AMLO1TAB25; +LEVO1TAB40 PO; -LEVO750T13 PO; +NEXI10GR PO; +VITA100093 PO
== END ==
LOC: M LABSMTC 09:24
PROVIDERS: ATTEND Anesthesiology
DX: Z01.812 Encounter for preprocedural laboratory examination (principal); Z11.52 Encounter for screening for COVID-19

== ENCOUNTER 2022-08-09 07:06 | Day surgery (SDC) | payer MEDICARE ==
[~2022-08-09] VITALS: Ht 172.7 cm; Wt 83.8 kg
[~2022-08-09 07:06] MED LIST changes: +NS 1,000 ML IV ONE; +propofoL 200 MG/20 ML VIAL As Ordered ONE
[2022-08-09 08:46] VITALS: BP 143/79
== END 2022-08-09 08:48 | disposition home or self-care (01) ==
LOC: M OPP 07:06
PROVIDERS: ATTEND Surgery
DX: D12.6 Benign neoplasm of colon, unspecified (principal); K57.30 Diverticulosis of large intestine without perforation or abscess without bleeding; K64.1 Second degree hemorrhoids; K62.5 Hemorrhage of anus and rectum; Z86.010 Personal history of colon polyps; Z79.02 Long term (current) use of antithrombotics/antiplatelets; Z79.899 Other long term (current) drug therapy; Z87.891 Personal history of nicotine dependence; I10 Essential (primary) hypertension; D64.9 Anemia, unspecified; F41.9 Anxiety disorder, unspecified; F32.9 Major depressive disorder, single episode, unspecified; Z85.51 Personal history of malignant neoplasm of bladder; Z85.820 Personal history of malignant melanoma of skin

== ENCOUNTER → 2022-11-01 | Outpatient (CLI) | payer MEDICARE ==
[~2022-11-01] MED LIST changes: -NS 1,000 ML IV ONE; -propofoL 200 MG/20 ML VIAL As Ordered ONE
== END ==
LOC: M PLARAD 12:41
PROVIDERS: ATTEND Family Medicine
DX: R51.9 Headache, unspecified (principal)

== ENCOUNTER → 2023-01-08 | Outpatient (REF) | payer MEDICARE ==
[2023-01-08 18:35] LABS: APPEARANCE, URINE CLEAR (CLEAR); BACTERIA, URINE AUTO NEGATIVE (NEGATIVE); BILIRUBIN, URINE AUTO NEGATIVE (NEGATIVE); BLOOD, URINE BLOOD NEGATIVE (NEGATIVE); COLOR, URINE YELLOW (YELLOW); GLUCOSE, URINE (UA) AUTO NEGATIVE (NEGATIVE); KETONE, URINE AUTO NEGATIVE (NEGATIVE); LEUKOCYTE ESTERASE, URINE AUTO NEGATIVE (NEGATIVE); NITRITE, URINE AUTO NEGATIVE (NEGATIVE); PROTEIN, URINE AUTO NEGATIVE (NEGATIVE); RBC, URINE AUTO 1 /HPF (0-3); SPECIFIC GRAVITY URINE AUTO 1.012 (1.002-1.035); SQUAMOUS EPITHELIAL CELL UR AU 0 /HPF (0-6); UROBILINOGEN, URINE AUTO 0.2 mg/dL (0.0-2.0); WBC, URINE AUTO 1 /HPF (0-3)
== END ==
LOC: M SMT 17:28
PROVIDERS: ATTEND Urology
DX: Z85.51 Personal history of malignant neoplasm of bladder (principal)

== ENCOUNTER → 2023-08-30 | Outpatient (REF) | payer MEDICARE ==
[2023-08-30 18:02] LABS: BLOOD UREA NITROGEN 15 MG/DL (9-23); CARBON DIOXIDE LEVEL 32 MMOL/L (20-31); CHLORIDE LEVEL 104 MMOL/L (98-107); CREATININE FOR GFR 0.81 MG/DL (0.70-1.30); GLOMERULAR FILTRATION RATE > 60.0 (>35); GLUCOSE, FASTING 104 MG/DL (74-106); POTASSIUM SERUM 4.5 MMOL/L (3.5-5.1); SODIUM LEVEL 140 MMOL/L (136-145)
[2023-08-30 18:08] LABS: BASO # 0.1 10^3/uL (0.0-0.2); BASO % 0.8 % (0.0-1.0); EOS # 0.2 10^3/uL (0.0-0.5); EOS % 1.7 % (0.0-3.0); HEMATOCRIT 43.8 % (42.0-52.0); HEMOGLOBIN 14.4 g/dl (13.5-17.5); LYMPH # 1.9 10^3/uL (1.5-5.0); LYMPH % 18.1 % (24.0-44.0); MEAN CORPUSCULAR HEMOGLOBIN 30.3 pg (27.0-33.0); MEAN CORPUSCULAR HGB CONC 32.9 g/dl (32.0-36.5); MONO # 0.8 10^3/uL (0.0-0.8); MONO % 7.5 % (2.0-8.0); NEUTROPHILS # 7.6 10^3/uL (1.5-8.5); NEUTROPHILS % 71.6 % (36.0-66.0); PLATELET COUNT, AUTOMATED 279 10^3/uL (150-450); RED BLOOD COUNT 4.76 10^6/uL (4.30-6.10); WHITE BLOOD COUNT 10.6 10^3/uL (4.0-10.0)
== END ==
LOC: M SFHCCLAY 10:30
PROVIDERS: ATTEND Family Medicine
DX: J02.9 Acute pharyngitis, unspecified (principal); R13.12 Dysphagia, oropharyngeal phase

== ENCOUNTER → 2023-09-25 | Outpatient (CLI) | payer MEDICARE | LOC: M CLY 11:33 | PROVIDERS: ATTEND Family Medicine | DX: J84.9 Interstitial pulmonary disease, unspecified (principal) ==

== ENCOUNTER → 2024-01-14 | Outpatient (REF) | payer MEDICARE ==
[2024-01-14 18:29] LABS: APPEARANCE, URINE CLEAR (CLEAR); BACTERIA, URINE AUTO NEGATIVE (NEGATIVE); BILIRUBIN, URINE AUTO NEGATIVE (NEGATIVE); BLOOD, URINE BLOOD 1+ (NEGATIVE); COLOR, URINE YELLOW (YELLOW); GLUCOSE, URINE (UA) AUTO 1+ mg/dL (NEGATIVE); KETONE, URINE AUTO NEGATIVE (NEGATIVE); LEUKOCYTE ESTERASE, URINE AUTO NEGATIVE (NEGATIVE); MUCUS, URINE SMALL (NEGATIVE); NITRITE, URINE AUTO NEGATIVE (NEGATIVE); PROTEIN, URINE AUTO NEGATIVE (NEGATIVE); RBC, URINE AUTO 9 /HPF (0-3); SPECIFIC GRAVITY URINE AUTO 1.012 (1.002-1.035); SQUAMOUS EPITHELIAL CELL UR AU 0 /HPF (0-6); UROBILINOGEN, URINE AUTO 0.2 mg/dL (0.0-2.0); WBC, URINE AUTO 0 /HPF (0-3)
== END ==
LOC: M SMT 17:31
PROVIDERS: ATTEND Urology
DX: Z85.51 Personal history of malignant neoplasm of bladder (principal)

== ENCOUNTER → 2024-06-19 | Outpatient (REF) | payer MEDICARE ==
[~2024-06-19] MED LIST changes: +GABA-1490 PO; -GABA600T4 PO
[2024-06-19 18:02] LABS: HEMATOCRIT 41.9 % (42.0-52.0); MEAN CORPUSCULAR HEMOGLOBIN 30.8 pg (27.0-33.0); MEAN CORPUSCULAR HGB CONC 33.4 g/dl (32.0-36.5); MEAN CORPUSCULAR VOLUME 92.1 fl (80.0-96.0); PLATELET COUNT, AUTOMATED 250 10^3/uL (150-450); RED BLOOD COUNT 4.55 10^6/uL (4.30-6.10); WHITE BLOOD COUNT 7.9 10^3/uL (4.0-10.0)
[2024-06-19 18:27] LABS: ALBUMIN 3.7 G/DL (3.2-5.2); ALKALINE PHOSPHATASE 90 U/L (46-116); ALT/SGPT 23 U/L (7.0-40); AST/SGOT 14 U/L (<34); BILIRUBIN,TOTAL 0.5 MG/DL (0.3-1.2); BLOOD UREA NITROGEN 13 MG/DL (9-23); CALCIUM LEVEL 9.4 MG/DL (8.3-10.6); CARBON DIOXIDE LEVEL 30 MMOL/L (20-31); CHLORIDE LEVEL 106 MMOL/L (98-107); CHOLESTEROL LEVEL 135 MG/DL (<200); CHOLESTEROL RISK RATIO 3.14 (<5); CREATININE FOR GFR 0.91 MG/DL (0.70-1.30); GLOMERULAR FILTRATION RATE > 60.0 (>35); GLUCOSE, FASTING 153 MG/DL (74-106); HDL CHOLESTEROL 42.9 MG/DL (>40); LDL CHOLESTEROL 74.9 MG/DL (<100); MAGNESIUM LEVEL 2.2 MG/DL (1.8-2.4); NON-HDL-C 92.1 MG/DL; POTASSIUM SERUM 4.2 MMOL/L (3.5-5.1); SODIUM LEVEL 141 MMOL/L (136-145); TOTAL PROTEIN 6.7 G/DL (5.7-8.2); TRIGLYCERIDES LEVEL 86 MG/DL (<150)
[2024-06-19 18:46] LABS: HEMOGLOBIN A1c 6.1 % (4.0-6.0)
== END ==
LOC: M SFHCCLAY 14:28
PROVIDERS: ATTEND Family Medicine
DX: I10 Essential (primary) hypertension (principal); R73.01 Impaired fasting glucose; E78.5 Hyperlipidemia, unspecified; K21.9 Gastro-esophageal reflux disease without esophagitis

== ENCOUNTER → 2024-07-22 | Outpatient (CLI) | payer MEDICARE ==
[~2024-07-22] MED LIST changes: -LEVO750T14 PO; +LEVO75TAB PO
== END ==
LOC: M CLY 08:26
PROVIDERS: ATTEND Physician Assistant
DX: R05.1 Acute cough (principal)

== ENCOUNTER → 2024-07-22 | Outpatient (REF) | payer MEDICARE ==
[2024-07-22 12:25] LABS: RSV AMPLIFICATION NEGATIVE (NEGATIVE)
== END ==
LOC: M SFHCCLAY 10:44
PROVIDERS: ATTEND Physician Assistant
DX: J02.9 Acute pharyngitis, unspecified (principal); R05.1 Acute cough

== ENCOUNTER → 2025-01-13 | Outpatient (REF) | payer MEDICARE ==
[~2025-01-13] MED LIST changes: -PRED50TA PO; +PRED50TA57 PO
[2025-01-13 16:05] LABS: APPEARANCE, URINE CLEAR (CLEAR); BACTERIA, URINE AUTO NEGATIVE (NEGATIVE); BILIRUBIN, URINE AUTO NEGATIVE (NEGATIVE); BLOOD, URINE BLOOD 1+ (NEGATIVE); COLOR, URINE YELLOW (YELLOW); GLUCOSE, URINE (UA) AUTO NEGATIVE (NEGATIVE); KETONE, URINE AUTO NEGATIVE (NEGATIVE); LEUKOCYTE ESTERASE, URINE AUTO NEGATIVE (NEGATIVE); MUCUS, URINE SMALL (NEGATIVE); NITRITE, URINE AUTO NEGATIVE (NEGATIVE); PROTEIN, URINE AUTO NEGATIVE (NEGATIVE); RBC, URINE AUTO 14 /HPF (0-3); SPECIFIC GRAVITY URINE AUTO 1.008 (1.002-1.035); SQUAMOUS EPITHELIAL CELL UR AU 0 /HPF (0-6); UROBILINOGEN, URINE AUTO 0.2 mg/dL (0.0-2.0); WBC, URINE AUTO 0 /HPF (0-3)
== END ==
LOC: M SMT 15:21
PROVIDERS: ATTEND Urology
DX: Z85.51 Personal history of malignant neoplasm of bladder (principal)

== ENCOUNTER → 2025-07-01 | Outpatient (REF) | payer MEDICARE ==
[2025-07-01 18:47] LABS: PLATELET COUNT, AUTOMATED 268 10^3/uL (150-450)
[2025-07-01 19:17] LABS: ALT/SGPT 29.0 U/L (7.0-40); AST/SGOT 26.0 U/L (<34); CALCIUM LEVEL 9.2 MG/DL (8.3-10.6); CARBON DIOXIDE LEVEL 28.0 MMOL/L (20-31); CHLORIDE LEVEL 103.0 MMOL/L (98-107); CHOLESTEROL LEVEL 145.0 MG/DL (<200); CHOLESTEROL RISK RATIO 3.25 (<5); CREATININE FOR GFR 0.87 MG/DL (0.70-1.30); GLOMERULAR FILTRATION RATE 86.2 (>35); LDL CHOLESTEROL 72.7 MG/DL (<100); MAGNESIUM LEVEL 2.1 MG/DL (1.8-2.4); NON-HDL-C 100.5 MG/DL; POTASSIUM SERUM 4.1 MMOL/L (3.5-5.1); SODIUM LEVEL 140.0 MMOL/L (136-145); TRIGLYCERIDES LEVEL 139.0 MG/DL (<150)
[2025-07-01 19:28] LABS: ESTIMATED AVERAGE GLUCOSE 134.0 MG/DL (60-110)
== END ==
LOC: M SFHCCLAY 14:23
PROVIDERS: ATTEND Family Medicine
DX: I10 Essential (primary) hypertension (principal); R73.01 Impaired fasting glucose; E78.5 Hyperlipidemia, unspecified; K21.9 Gastro-esophageal reflux disease without esophagitis